=== PATIENT | male | born 1945 | race Caucasian/White ===

== ENCOUNTER 2021-09-10 14:57 | Outpatient (CLI) | payer MEDICARE, OTHER, SELFPAY ==
--- NOTE | 2021-09-10 14:59 | XR_ITS ---
WS: [id number] DEXA (DUAL ENERGY X-RAY ABSORPTIOMETRY) Bone mineral density was performed using a Bix machine. HISTORY: SCREENING FOR OSTEOPOROSIS, 76-year-old male. COMPARISON: None available. Lumbar spine BMD (L1-L4): 1.322 g/cm2 T score: 0.9 Z score: 0.9 Total hip BMD: Left: 0.902 g/cm2. T score: -1.4 Z score: -0.9 Right: 0.924 g/cm2. T score: -1.2 Z score: -0.7 10 year probability of a major osteoporotic fracture is 9%. XR/XR DEXA axial skeleton* [id number] IMPRESSION: OSTEOPENIA.
== END 2021-09-10 14:58 | disposition home or self-care (01) ==
PROVIDERS: Visit Provider Nurse Practitioner Family
DX: Z13.820 Encounter for screening for osteoporosis (principal); M85.80 Other specified disorders of bone density and structure, unspecified site
CPT/HCPCS: 77080

== ENCOUNTER 2021-10-09 07:43 | Outpatient (CLI) | payer MEDICARE, OTHER, SELFPAY ==
--- NOTE | 2021-10-09 08:00 | USCV_ITS ---
Eligio Ervin Age: 76 Gender: M : 1945 Exam Date: 10/09/2021 08:24 Ordering Phys: Sendy Guo Technologist: Adriana Coughlin [place] [facility] [place]: CHRONIC RENAL DISEASE Aortic Velocity @ SMA (cm/s) 80.3 RIGHT KIDNEY LEFT KIDNEY Velocity (cm/s) Velocity (cm/s) Sys/Mccarthy Sys/Mccarthy Resistive Index Resistive Index 55.6 / 10.5 0.81 Proximal Renal Artery 52.1 / 15.2 0.71 51.3 / 17.9 0.65 Mid Renal Artery 173.6 / 29.6 0.83 47.3 / 10.7 0.77 Distal Renal Artery 43.4 / 13.5 0.69 44.6 / 9.1 0.80 Hilar 42.7 / 10.7 0.75 35.4 / 10.7 0.70 Upper Pole 29.3 / 7.1 0.76 34.9 / 8.6 0.75 Mid Pole 30.2 / 9.0 0.70 20.2 / 5.6 0.72 Lower Pole 27.9 / 8.5 0.69 0.70 Renal Aortic Ratio 2.16 Accleration Index (cm/sec2) 340.00 Hilar 323.00 149.00 Upper Pole 200.00 242.00 Mid Pole 157.00 86.00 Lower Pole 149.00 121.3 Kidney Length (mm) 118.0 FINDINGS Renal artery to renal artery ratio of more than 3.0 on the left side Normal kidney dimensions Relatively high resistive indicis Normal kidney dimensions CONCLUSIONS 1. Normal kidney dimensions bilaterally 2. Elevated Doppler velocity in the mid renal artery on the left side, is suggestive of hemodynamically significant stenosis. 3. Elevated resistive indicis suggestive of medical renal disease 4. Large single renal cyst on the right kidney measuring 6.35 x 4.31 x 6.20 cm No similar previous studies are available for comparison Dr Nicolasa Dutta MD [facility] (Electronically Signed) Final Date: 10 October 2021 19:50 S
== END 2021-10-09 07:44 | disposition home or self-care (01) ==
LOC: RAD 07:46
PROVIDERS: PCP Nurse Practitioner Family; Visit Provider Nurse Practitioner Family
DX: N18.30 Chronic kidney disease, stage 3 unspecified (principal); N28.1 Cyst of kidney, acquired
CPT/HCPCS: 93975

== ENCOUNTER → 2022-05-20 13:52 | Outpatient (BNVA) | payer MEDICARE, OTHER, SELFPAY | PROVIDERS: PCP Nurse Practitioner Family; Visit Provider Internal Medicine Cardiovascular Disease | DX: I25.10 Atherosclerotic heart disease of native coronary artery without angina pectoris (principal); I10 Essential (primary) hypertension; I70.1 Atherosclerosis of renal artery; E11.9 Type 2 diabetes mellitus without complications; Z79.4 Long term (current) use of insulin | CPT/HCPCS: 99213; 99214 ==

== ENCOUNTER → 2022-11-25 12:53 | Outpatient (BNVA) | payer MEDICARE, OTHER, SELFPAY | PROVIDERS: PCP Nurse Practitioner Family; Visit Provider Internal Medicine | DX: I10 Essential (primary) hypertension (principal); I70.1 Atherosclerosis of renal artery; E11.9 Type 2 diabetes mellitus without complications; Z79.84 Long term (current) use of oral hypoglycemic drugs; I25.10 Atherosclerotic heart disease of native coronary artery without angina pectoris | CPT/HCPCS: 99214 ==

== ENCOUNTER → 2023-05-26 15:13 | Outpatient (BNVA) | payer MEDICARE, OTHER, SELFPAY | PROVIDERS: PCP Nurse Practitioner Family; Visit Provider Internal Medicine | DX: I10 Essential (primary) hypertension (principal); I70.1 Atherosclerosis of renal artery; E11.9 Type 2 diabetes mellitus without complications; I25.10 Atherosclerotic heart disease of native coronary artery without angina pectoris; Z79.4 Long term (current) use of insulin; N28.1 Cyst of kidney, acquired; Z79.84 Long term (current) use of oral hypoglycemic drugs | CPT/HCPCS: 99214 ==

== ENCOUNTER 2023-06-16 12:00 | Outpatient (CLI) | payer MEDICARE, OTHER, SELFPAY ==
--- NOTE | 2023-06-16 12:15 | USCV_ITS ---
Eligio Ervin Age: 77 Gender: M : 1945 Exam Date: 06/16/2023 12:27 Ordering Phys: Pako Farmer M.D ([email or web address]) Technologist: HELEN Exam Location: [facility] – [place] Indication: CHEST PAIN AND SHORTNESS OF BREATH BP: 136 / 76 HR: 60 Rhythm: Sinus Technical Quality: Adequate MEASUREMENTS (Male / Female) Normal Values 2D ECHO LVOT Diameter 2.0 cm LV Ejection Fraction MOD 2C 53.3 % LV Ejection Fraction 2C AL 52.7 % LA Diameter 3.8 cm LA Width 3.7 cm LA Height 4.8 cm RA Width 2.8 cm RA Height 4.8 cm Aorta at Sinotubular Diameter 2.5 cm M-MODE Aortic Annulus Diameter 3.5 cm LA Ao Ratio MM 1.0 MV E Point Septal Separation 0.7 cm DOPPLER AV Peak Velocity 218.0 cm/s LVOT Peak Velocity 96.0 cm/s AV Area Cont Eq vti 1.5 cm squared AV Area Cont Eq pk 1.4 cm squared MV Peak Velocity 99.0 cm/s MV Area PHT 2.9 cm squared Mitral E to A Ratio 0.7 MV E' Velocity 39.0 cm/s Mitral E to MV E' Ratio 8.7 Mitral E to LV E' Lateral Ratio 9.2 Mitral E to LV E' Septal Ratio 8.3 TR Peak Velocity 174.5 cm/s TR Peak Gradient 12.2 mmHg TR Mean Velocity 136.1 cm/s TR Mean Gradient 8.3 mmHg TR Velocity Time Integral 45.9 cm TV Peak E Velocity 51.0 cm/s Right Atrial Pressure 8.0 mmHg Pulmonary Artery Systolic Pressu 20.2 mmHg PV Peak Velocity 100.0 cm/s RV Acceleration Time 0.1 s RV Ejection Time 0.3 s RV AcT/ET 0.5 FINDINGS Left Ventricle Left ventricle is normal size. LV systolic function is normal with EF of 50-55%. No regional wall motion abnormalities are seen. Grade 1 diastolic dysfunction Right Ventricle Normal in size and function Right Atrium Normal in size Left Atrium Normal in size Mitral Valve Mild mitral annular calcification. Trace mitral regurgitation Aortic Valve Aortic valve is thickened. Mild aortic stenosis with aortic valve area of 1.4 cm2 and mean gradient across aortic valve of 11mmHg. Tricuspid Valve Mild tricuspid regurgitation. Pulmonary artery systolic pressure is normal. Pulmonic Valve Not well visualized Pericardium Normal Aorta Normal in size IVC Appears to be normal CONCLUSIONS LV systolic function is normal with EF 50-55% Grade 1 diastolic dysfunction Trace mitral regurgitation Mild aortic stenosis Mild tricuspid regurgitation No comparison studies are available. Pako Farmer MD (Electronically Signed) Final Date: 26 June 2023 13:03 S
== END 2023-06-16 12:01 | disposition home or self-care (01) ==
LOC: RAD 12:02
PROVIDERS: PCP Nurse Practitioner Family; Visit Provider Internal Medicine
DX: R06.02 Shortness of breath (principal); R07.9 Chest pain, unspecified
CPT/HCPCS: 93306

== ENCOUNTER 2025-06-12 15:26 | Outpatient (CLI) | payer MEDICARE, OTHER, SELFPAY ==
--- NOTE | 2025-06-12 15:48 | MR_ITS ---
WS: [id number] MRI HEAD WITH CONTRAST TECHNIQUE: Sagittal T1, T2 axial, T2 axial FLAIR, axial susceptibility weighted imaging, axial diffusion weighted images, and coronal T2 images were obtained. Pre and post-T1 axial and post T1 coronal images. ADC and FSPGR images. CLINICAL INFORMATION: TRAUMATIC INJURY OF HEAD, INITIAL ENCOUNTER FINDINGS: A few small foci of restricted diffusion involving the RIGHT temporoparietal junction, and LEFT anterolateral temporal lobe compatible with small foci of acute to early subacute ischemia. Consider embolic etiologies considering multiple vascular territories. Moderate small vessel changes. Moderate to advanced parenchymal volume loss. Multiple tiny chronic lacunar infarcts in the cerebellum bilaterally. Small vessel changes in the nayla. Normal vascular flow voids at the skull base. No extra-axial fluid collections. Tiny chronic lacunar infarcts in the RIGHT periventricular white matter. Paranasal sinuses and mastoid air cells are well aerated. Several scattered tiny foci of hemosiderin in the supratentorial white matter more prominent in the LEFT greater than RIGHT temporal lobes. No abnormal gadolinium enhancement. Normal dural venous sinuses. MR/MR head wo/w con [id number] IMPRESSION: 1. 2 or 3 small foci of restricted diffusion in the RIGHT parietal lobe and LE FT temporal lobe compatible with small acute to early subacute tiny infarcts. R ecommend correlation for embolic etiology considering multiple vascular territo soto. 2. Moderate small vessel changes with moderate to advanced parenchymal volume loss. 3. 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 Small vess el changes in the nayla. 4. Chronic lacunar infarcts in the RIGHT periventricular white matter. 5. Several tiny punctate foci of hemosiderin in the supratentorial white matte r more prominent in the LEFT greater than RIGHT temporal lobes. 6. No abnormal gadolinium enhancement.
[2025-06-12] MEDS: gadobenate dimeglumine 20 mL vial 18 ML IV (16:23)
== END 2025-06-12 15:27 | disposition home or self-care (01) ==
LOC: RAD 15:29
PROVIDERS: PCP Nurse Practitioner Family; Visit Provider Nurse Practitioner Family
DX: S09.90XA Unspecified injury of head, initial encounter (principal); X58.XXXA Exposure to other specified factors, initial encounter; Z86.73 Personal history of transient ischemic attack (TIA), and cerebral infarction without residual deficits
CPT/HCPCS: 70553; A9577

== ENCOUNTER 2025-06-13 12:35 | Emergency (ER) | payer MEDICARE, OTHER, SELFPAY ==
--- OUTSIDE RECORDS SUMMARY | 2025-06-11 18:00 | XMS_ITS | Encounter Summary ---
Author Organization [facility] Address [address] [place] [address] Care Team Providers Care Java Designer Name Role Phone Michaela Slater [facility] Primary Care Provider Reason for Visit * Reason Comments Double Vision Encounter Details Date Type Department Care Team (Late st Contact Info) Description 06/11/2025 6:00 PM CDT - 06/11/2025 9:29 PM CDT Emergency [facility] Emergency Medicine [address] [place] [phone] Amira Harris MD [address] [place] [phone] Luis Mckeon MD [address] [place] [address] [place] [address] Diplopia (Primary Dx) Discharge Disposition: Left Against Medical Advice Social History Tobacco Use Types Packs/Day Years Used Date Smoking Tobacco: Never Smokeless Tobacco: Never Tobacco Cessation:Counseling Given: Not Answered Alcohol Use Standard Drinks/Week Comments Not Currently 0 (1 standard drink = 0.6 oz pur e alcohol) Sex and Gender Information Value Date Recorded Sex Assigned at Not on file 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 Gender Identity Not on file Sexual Orientation Not on file documented as of this encounter Last Filed Vital Signs Vital Sign Reading Time Taken Comments Blood Pressure 209/95 06/11/2025 9:15 PM CDT Pulse 80 06/11/2025 8:45 PM CDT Temperature 36.6 C (97.8 F) 06/11/2025 5:56 PM CDT Respiratory Rate 17 06/11/2025 9:15 PM CDT Oxygen Saturation 98% 06/11/2025 9:15 PM CDT Inhaled Oxygen Concentration - - Weight 93.8 kg (206 lb 12.8 oz) 06/11/2025 5:56 PM CDT Height 15.2 cm (6 ) 06/11/2025 5:56 PM CDT Body Mass Index 4038.79 06/11/2025 5:56 PM CDT documented in this encounter Discharge Instructions * Discharge Instructions* Mary Alice Norman RN - 06/11/2025 9:22 PM CDT * Attachments The following attachments cannot be sent through Care Everywhere. * Diplopia (Macedonian) documented in this encounter Progress Notes * Dorinda Saavedra RN - 06/11/2025 7:01 PM CDT Virtual Neurology Team vRN Note: Patient Name: Eligio Ervin Patient Patient : 1945 Patient Age: 79 y.o. Patient gender: male Virtual Neurology Nurse notified by [facility] via eLert/phone at: 06-11-2025 18:58:50 ED arrival type: Private vehicle Reason for Teleneurology consult: BOATENG, hit head 3 days ago and double vision Routine consultation sent to virtual neurologist at: 06-11-2025 19:02:56 Dorinda Saavedra RN 06/11/2025 7:01 PM To reach [facility] Neurology please call [phone]. documented in this encounter Consult Notes * Davidson San MD - 06/11/2025 7:57 PM CDTAssociated Order(s): IP CONSULT TO [facility]ENEUROLOGY [facility] New Patient Consultation Note This is a telehealth visit and the patient is being seen on 06/11/2025 at [facility] via Telehealth services using bi-directional audio/video by Dr. Davidson San MD. A Telehealth consult was requested. Teleneurologist first contact with site: Video Video Start Time: 1947 Chief Complaint: Diplopia History of Present Illness: Eligio Ervin is a 79 y.o. male with a past medical history of hypertension, diabetes, who presented to the ER with a main complaint of double vision and headache. He says that he was in his normal state of health until 3 days ago when he hit his head with the garage door. He did not lose consciousness. He did not have any symptoms after this event. Yesterday, he started having double vision andmild headache. No nausea, no vomiting, no tingling or numbness or weakness. Reviewed history in chart review and found: No significant history noted. Reviewed history in care everywhere and found: No significant history noted. Medical, Surgical, Family, & Social History Past Medical History: Diagnosis Date Diabetes mellitus (CMS/HCC) Hypertension [place] spotted fever Past Surgical History: Procedure Laterality Date HX CATARACT REMOVAL No family history on file. Social History Socioeconomic History Marital status: Spouse name: Not on file Number of children: Not on file Years of education: Not on file Highest education level: Not on file Occupational History Not on file Tobacco Use Smoking status: Never Smokeless tobacco: Never Vaping Use Vaping status: Never Used Substance and Sexual Activity Alcohol use: Not Currently Drug use: Never Sexual activity: Not on file Other Topics Concern Not on file Social History Narrative Not on file Social Drivers of Health Food Insecurity: Not on file Transportation Needs: Not on file Feeling Safe: Not At Risk (06/11/2025) Feeling Safe Patient has indicated abuse: : No Housing Stability: Not on file Review of Systems: 10+ systems were reviewed. In addition to what is listed in the HPI, the following was positive: Asper HPI The following symptoms were denied during a ROS: Constitutional: No fevers or chills. Psychiatric: No depression/anxiety. Skin: No rashes. Respiratory: No shortness of breath. Cardiovascular: No chest pain. GI: No nausea/vomiting. : No incontinence. Endocrine: No polydipsia. Musculoskeletal: No muscle pain/joint pain. Neurologic: as per HPI and otherwise negative Hematologic: No excessive bruising. Allergies and Medications Allergies: No Known Allergies Prior to Admission Medications: (Not in a hospital admission) Active Hospital Medications: Current Facility-Administered Medications Medication Dose Route Frequency Provider Last Rate Last Admin sodium chloride flush injection 10 mL 10 mL IV every 12 hours (2 times daily) Day, Amira Pinedo MD sodium chloride flush injection 10 mL 10 mL IV see admin instructions Day, Amira Pinedo MD No current outpatient medications on file. Physical Examination: Vitals: BP (!) 186/91 Pulse 81 Temp 97.8 ??F (36.6 ??C) (Temporal) Resp 17 Ht (!) 6 (0.152m) Wt 93.8 kg (206 lb 12.8 oz) SpO2 95% BMI 4038.79 kg/m?? General: Alert, cooperative, no distress, appears stated age Head: Normocephalic, without obvious abnormalities, atraumatic, Eyes: Conjunctivae/corneas clear Throat: lips, mucosa, and tongue normal Lungs: non labored breathing Extremities: no edema, cyanosis, no deformities Psych: Judgement and insight is appropriate, see neuro exam for mental status exam Neurological Examination: 06/11/2025 Alert awake and oriented x 4 Attention concentration and memory are intact Speech is clear and fluent Diplopia No obvious facial weakness Moving all extremities well No dysmetria on gcldzd-[id number] Laboratory Data: Results for orders placed or performed during the hospital encounter of 06/11/25 (from the past 24 hours) CBC WITH DIFFERENTIAL Result Value Ref Range WBC 9.5 (H) 4.2 - 9.1 K/uL RBC 4.57 (L) 4.63 - 6.08 M/uL HEMOGLOBIN 13.9 13.7 - 17.5 g/dL HEMATOCRIT 39.6 (L) 40.1 - 51.0 % MCV 86.7 79.0 - 92.2 fL MCH 30.4 25.7 - 32.2 pg MCHC 35.1 32.3 - 36.5 g/dL RDW 13.5 11.0 - 14.5 % RDW-STDEV 41.8 36.9 - 56.9 fL PLATELETS 205 130 - 400 K/uL MPV 9.3 (L) 10.0 - 14.8 fL NEUTROPHILS 68 34 - 68 % LYMPHOCYTES 24 22 - 53 % MONOCYTES 5 5 - 12 % EOSINOPHILS 2 1 - 7 % BASOPHILS 0 0 - 1 % IMMATURE GRANULOCYTES 0 % NEUTROPHIL ABSOLUTE 6.51 (H) 1.78 - 5.38 K/uL LYMPHOCYTE ABSOLUTE 2.30 1.20 - 3.40 K/uL MONOCYTE ABSOLUTE 0.43 0.30 - 0.82 K/uL EOSINOPHIL ABSOLUTE 0.21 0.04 - 0.54 K/uL BASOPHILS ABSOLUTE 0.03 0.01 - 0.08 K/uL IMMATURE GRANULOCYTES ABSOLUTE 0.04 K/uL PROTIME-INR Result Value Ref Range PROTIME 13.3 12.1 - 14.3 Seconds INR 1.0 0.9 - 1.1 PTT Result Value Ref Range PTT 25.7 25.1 - 35.4 seconds COMPREHENSIVE METABOLIC PANEL Result Value Ref Range SODIUM 140 136 - 145 mmol/L POTASSIUM 4.4 3.5 - 5.1 mmol/L CHLORIDE 105 98 - 107 mmol/L CO2 23 22 - 29 mmol/L CALCIUM 8.7 (L) 8.8 - 10.2 mg/dL BUN 14 8 - 23 mg/dL CREATININE 0.98 0.67 - 1.17 mg/dL GLUCOSE 281 (H) 74 - 99 mg/dL TOTAL PROTEIN 6.5 (L) 6.6 - 8.7 g/dL ALBUMIN 3.4 (L) 3.5 - 5.2 g/dL BILIRUBIN TOTAL 1.2 0.0 - 1.2 mg/dL ALKALINE PHOSPHATASE 102 40 - 129 U/L AST 16 0 - 50 U/L ALT 7 0 - 50 U/L GFR >60 mL/min/1.73 sq meter ANION GAP 12 5 - 20 mmol/L BRAIN NATRIURETIC PEPTIDE, BNP OR PROBNP Result Value Ref Range PROBNP, N TERMINAL 664 (H) 0 - 450 pg/mL POC GLUCOSE Result Value Ref Range GLUCOSE POC 270 (H) 74 - 99 mg/dL SPECIMEN SOURCE, GLUCOSE POC Whole Blood Imaging: Reviewed in EPIC, Brain imaging personally reviewed; Other studies reviewed in EMR; CT Head : Shows no acute process CTA Head and Neck : MRI Brain : Impression: Eligio Ervin is a 79 y.o. male with a past medical history of hypertension, diabetes, who presented to the ER with a main complaint of double vision and headache. He says that he was in his normal state of health until 3 days ago when he hit his head with the garage door. He did not lose consciousness. He did not have any symptoms after this event. Yesterday, he started having double vision andmild headache. No nausea, no vomiting, no tingling or numbness or weakness. Differential diagnosis: Diabetic neuropathy of the eye muscles vs head trauma vs stroke Plan: 1. CTA head and neck 2. MRI brain with and without contrast 3. Ophthalmology consult either inpatient or outpatient. Ideally needs to be seen by neuro-ophthalmology. The Following orders were placed by me: None Above plan discussed with bedside provider Luis Mckeon MD Neurology Service Follow up Plan: Will follow this patient with you. A/V visit and further recommendations will be planned for tomorrow. Thank you for the opportunity to assist in the care of this patient. For questions/concerns, pleasecall [email or web address] at [phone]. Author: Davidson San MD as of: 06/11/2025 Evaluation and Management I spent minutes providing care for this patient. This includes chart review preparing for visit, virtual interview & virtual examination, as needed review and interpretation of lab, as needed independent image review and interpretation of scans, formulation of neurologic diagnosis and plan, review and placement of EMR orders, , discussion with attending, coordination with bedside team, communi cation with available significant others if available, documentation in medical record, coordination with [facility] Triage team, and any care coordination that I could assist with. (Dictated using voice to text software and can result in typos). This note was generated with [employer] voice recognition software and may contain endo tech errors. documented in this encounter ED Notes * Mary Alice Norman RN - 06/11/2025 9:[address] Mckeon aware of high blood pressure during stay. No new orders. Pt instructed to take bloodpressure medication when returning home. Pt hasn't taking any medications today. Pt choosing to leave AMA. Pt will call his pcp tomorrow letting her know what he was seen for and that he is needing an MRI. Pt a/ox3. Respirations even and unlabored. Pt denies pain. Continues to have double vision. Granddaughter in room, will be driving patient home. * Mary Alice Norman RN - 06/11/2025 8:57 PM CDT Pt continues to have double vision. Denies pain. Family at bedside. * Mary Alice Norman RN - 06/11/2025 7:51 PM CDT Tele neurology speaking with patient * Mary Alice Norman RN - 06/11/2025 7:30 PM CDT Pt resting in bed. Computer at bedside for tele neurology * Mary Alice Norman RN - 06/11/2025 6:07 PM CDT Pt to ct via w/c. * Mary Alice Norman RN - 06/11/2025 6:03 PM CDT Pt arrived via pov. Drove self from [place]. C/o double vision, starting yesterday. Pt struck head3 days ago on garage door. Denies loc with injury. Pt a/ox.3. Pt reports headache x 2 days, after striking his head on the garage door. Ambulatory to room with steady gait. Denies pain. Pt unable to see vision chart during assessment. * Luis Mckeon MD - 06/11/2025 5:51 PM CDT HISTORY OF PRESENT ILLNESS History of Present Illness This is a patient with a history of diabetes and [place] spotted fever presenting with head trauma. The patient experienced a minor head injury 3 to 4 days ago when he accidentally hit his forehead on the garage door. He did not lose consciousness at the time of the incident. He reports no history of stroke or brain bleeds and is not currently on any blood thinners. The patient began experiencingdouble vision yesterday, with no significant change in the quality of his vision. He reports that his close-up vision is better than his distance vision, and he can see light in both eyes. He believes his left eye is stronger than his right. Additionally, he reports a headache and loss of balance, which he attributes to his current eye condition. He has not taken his blood pressure or blood sugar medication today. The patient has diabetes and [place] spotted fever, which is still ongoing. He is not on anymedication currently for the spotted fever. When he first contracted the illness, he was prescribedantibiotics for 20 days, which resolved the symptoms. Prior to treatment, his legs were almost solid red with little bumps. The patient has been experiencing tingling in his thumb for a couple of weeks, which he does not believe is related to the current issue. PAST MEDICAL HISTORY REVIEWED MEDICAL: Patient has a past medical history of Diabetes mellitus ([facility]), Hypertension, and [place] fever. SURGICAL: Patient has a past surgical history that includes cataract removal. ALLERGIES Patient has no known allergies. PHYSICAL EXAM INITIAL VS BP: (!) 196/98 (06/11/251755), Heart Rate: 84 bpm (06/11/251755), Resp: 17 (06/11/251755), Pulse: 84 (06/11/25 1845), Temp: 97.8 ??F (36.6 ??C) (06/11/251755), Temp src: Temporal (06/11/251755),SpO2: 97 % (06/11/251755), Height: (!) 6 (15.2 cm) (06/11/251755), Weight: 93.8 kg (206 lb 12.8 oz) (06/11/251755), BMI (Calculated): (!) 4059.9 (06/11/25 1756) No LMP for male patient. Blood pressure (!) 185/81, pulse 80, temperature 97.8 ??F (36.6 ??C), temperature source Temporal, resp. rate 20, height (!) 6 (0.152 m), weight 93.8 kg (206 lb 12.8 oz), SpO2 94%. Physical Exam Vitals and nursing note reviewed. Constitutional: General: He is not in acute distress. Appearance: Normal appearance. He is normal weight. He is not ill-appearing. HENT: Head: Normocephalic. Mouth/Throat: Mouth: Mucous membranes are moist. Eyes: General: Visual field deficit present. Extraocular Movements: Extraocular movements intact. Conjunctiva/sclera: Conjunctivae normal. Pupils: Pupils are equal, round, and reactive to light. Cardiovascular: Rate and Rhythm: Normal rate and regular rhythm. Pulses: Normal pulses. Pulmonary: Effort: Pulmonary effort is normal. No respiratory distress. Musculoskeletal: Cervical back: Normal range of motion and neck supple. Lymphadenopathy: Cervical: No cervical adenopathy. Skin: General: Skin is warm and dry. Capillary Refill: Capillary refill takes less than 2 seconds. Neurological: General: No focal deficit present. Mental Status: He is alert and oriented to person, place, and time. Mental status is at baseline. Cranial Nerves: No cranial nerve deficit, dysarthria or facial asymmetry. Sensory: Sensation is intact. Motor: No abnormal muscle tone or pronator drift. Comments: Mild dysmetria present bilaterally R>L Psychiatric: Mood and Affect: Mood normal. Behavior: Behavior normal. Physical Exam Head: No swelling noted on the forehead. Eyes: Patient able to see light in both eyes. Extraocular movements intact. Right eye shows deviation, left eye appears normal. Cardiovascular: Blood pressure is elevated. Neurological: Patient exhibits difficulty with gwfyoj-su-ytpx test. Reports tingling in thumb. No weakness or numbness noted. DIAGNOSTICS LAB: CBC WITH DIFFERENTIAL - Abnormal Result Value WBC 9.5 (*) RBC 4.57 (*) HEMOGLOBIN 13.9 HEMATOCRIT 39.6 (*) MCV 86.7 MCH 30.4 MCHC 35.1 RDW 13.5 RDW-STDEV 41.8 PLATELETS 205 MPV 9.3 (*) NEUTROPHILS 68 LYMPHOCYTES 24 MONOCYTES 5 EOSINOPHILS 2 BASOPHILS 0 IMMATURE GRANULOCYTES 0 NEUTROPHIL ABSOLUTE 6.51 (*) LYMPHOCYTE ABSOLUTE 2.30 MONOCYTE ABSOLUTE 0.43 EOSINOPHIL ABSOLUTE 0.21 BASOPHILS ABSOLUTE 0.03 IMMATURE GRANULOCYTES ABSOLUTE 0.04 COMPREHENSIVE METABOLIC PANEL - Abnormal SODIUM 140 POTASSIUM 4.4 CHLORIDE 105 CO2 23 CALCIUM 8.7 (*) BUN 14 CREATININE 0.98 GLUCOSE 281 (*) TOTAL PROTEIN 6.5 (*) ALBUMIN 3.4 (*) BILIRUBIN TOTAL 1.2 ALKALINE PHOSPHATASE 102 AST 16 ALT 7 GFR >60 ANION GAP 12 BRAIN NATRIURETIC PEPTIDE, BNP OR PROBNP - Abnormal PROBNP, N TERMINAL 664 (*) POC GLUCOSE - Abnormal GLUCOSE POC 270 (*) SPECIMEN SOURCE, GLUCOSE POC Whole Blood PROTIME-INR - Normal PROTIME 13.3 INR 1.0 PTT - Normal PTT 25.7 RADIOLOGY: CTA HEAD AND NECK W AND/OR WO CONTRAST Radiologist Impression IMPRESSION: Please see below. Exam: CTA HEAD AND NECK W AND/OR WO CONTRAST Date/Time of Exam: 06/11/2025 8:26 PM Reason For Exam: Ophthalmoplegia, Stroke/TIA, determine embolic source. Diagnosis: See Reason for Exam. Technique: CTA of the head and neck was performed prior to and following the administration of intravenous contrast. Post-processing was performed, including sagittal and coronal reformations and 3-D reconstruction. Contrast: IOPAMIDOL 61 % INTRAVENOUS SOLUTION (SINGLE USE VIAL) Given:100 mL Findings: No enlarged cervical lymph nodes are identified. No suspicious thyroid nodules. Visualized lung apices are clear. Paranasal sinuses and mastoid air cells are clear. There is no evidence of acute fracture or dislocation. There is moderate degenerative change throughout the cervical spine with disc height loss and osteophytes. No periapical lucencies are identified. No fluid collections or hematomas. Vertebral arteries are patent and codominant. The basilar artery is patent. There is mild stenosis of the left posterior cerebral artery.. Bilateral internal carotid arteries are patent. There are vascular calcifications. Bilateral anterior cerebral arteries and anterior communicating arteries are patent. Bilateral middle cerebral arteries are patent. IMPRESSION: 1. No evidence of high-grade stenosis, aneurysm or dissection in the high right neck. CT HEAD WO CONTRAST Radiologist Impression IMPRESSION: Please see below. Exam: CT HEAD WO CONTRAST Date/Time of Exam: 06/11/2025 6:16 PM Reason For Exam: Head trauma, moderate-severe, diplopia. Diagnosis: See Reason for Exam. Technique: CT of the head was performed without the administration of intravenous contrast. Comparison: None Findings: Mild atrophy. No acute cortical infarct, mass or hemorrhage. Intact calvarium and no fluid in the middle ear cavities or mastoid air cells. Septum deviates to the right. The visualized sinuses are clear. Bilateral lens replacement postoperative changes. IMPRESSION: 1. No acute intracranial abnormality. EKG: PROCEDURES Procedures MEDICAL DECISION MAKING AND PLAN OF CARE Medical Decision Making Initial Assessment: Reported hitting forehead on garage door 3-4 days ago. Onset of double vision yesterday. No historyof stroke or brain bleeds. Not on blood thinners. Experiencing headaches and loss of balance since incident. Differential Diagnosis: - Head trauma: Recent forehead injury. Double vision, headaches, loss of balance. CT scan to check for bleeding or abnormalities. Blood work to assess health status. - Diabetes mellitus: Slightly elevated blood sugar levels. Did not take blood sugar medication today. Resume regular medication regimen. Monitor blood sugar levels closely. ED Course: - CT scan performed - Blood work obtained - Tele neurology specialist evaluation Final Assessment: CT scan and blood work conducted to evaluate head trauma. Blood sugar levels slightly elevated, advised to resume medication and monitor levels. Clinical Impression: - Head trauma - Diabetes mellitus Care of the patient has been transferred to the night team at 7 PM. Deangelo Mckeon MD: I assumed care of this patient at shift change. CT angiogram of the head neck was pending. That hasbeen completed and read by the radiologist as normal. Dr. San, neurologist evaluated the patientand he did discuss this case with me. He recommends an MRI with and without contrast. I did place acall to get the patient transferred to [facility] and while that was in process the patient decided that he does not want to stay. He wants to follow-up with his primary care provider and havethem order an outpatient MRI. Patient did sign out AMA. I did encourage him to contact his primary care provider in the morning and have them order the MRI to be done as soon as possible. Amount and/or Complexity of Data Reviewed Labs: ordered. Radiology: ordered. Risk Prescription drug management. MDM NIH Stroke Scale/Score (NIHSS): 1. Level of consciousness: 0 - Alert, keenly responsive 1b. LOC questions: Age and month: 0 - answers both correctly 1c. LOC commands: Blink eyes and squeeze hands: 0 - performs both correctly 2. Best gaze: 1 - Partial gaze palsy, gaze is abnormal in one or both eyes, but forced deviation ortotal gaze paresis is not present. 3. Visual: 0 - no visual loss 4. Facial palsy: 0 - Normal symmetrical movements 5a. Motor arm, left : 0 - No drift, limb holds 90 (or 45) degrees for full 10 seconds 5b. Motor arm, right : 0 - No drift, limb holds 90 (or 45) degrees for full 10 seconds 6a. Motor leg, left : 0 - No drift, leg holds 30 degree position for full 5 seconds 6b. Motor leg, right: 0 - No drift, leg holds 30 degree position for full 5 seconds 7. Limb ataxia : 0 - absent 8. Sensory: 0 - Normal, no sensory loss 9. Best language: 0 - no aphasia 10. Dysarthria: 0 - Normal 11. Extinction and inattention (formerly neglect): 0 - No abnormality NIH score is: 1 Medications Administered During the ED Stay from 06/11/20251751 to 06/11/20252124 Date/Time Order Dose Route Action 06/11/20252026 CDT iopamidoL (ISOVUE-300) 61% injection (single-use vial) 100 mL 100 mL IV Contrast Given . LAST VS BP: (!) 185/81 (06/11/252044), Heart Rate: 74 bpm (06/11/252044), Resp: 20 (06/11/252044), Pulse: 80 (06/11/252044), Temp: 97.8 ??F (36.6 ??C) (06/11/251755), Temp src: Temporal (06/11/251755),SpO2: 94 % (06/11/252044) CLINICAL IMPRESSION Diagnosis Diagnosis Comment Added By Time Added Diplopia [H53.2] Luis Mckeon MD 06/11/2025 9:21 PM DISPOSITION, EDUCATION AND MEDICATION RECONCILIATION Medications reconciled. See after visit summary for patient education on discharged patients. ED Disposition ED Disposition AMA Condition -- User Luis Mckeon MD Date/Time TueJun 11, 2025 9:21 PM Comment -- documented in this encounter Plan of Treatment Not on file documented as of this encounter Procedures Procedure Name Priority Date/Time Associated Diagnosis Comments CTA HEAD AND NECK W AND/OR WO CONTRAST Stat 06/11/2025 8:[address] HEAD WO CONTRAST Stat 06/11/2025 6 :16 PM CDT POC GLUCOSE Stat 06/11/2025 6:01 PM CDT CBC WITH DIFFERENTIAL Stat 06/11/2025 6:01 PM CDT PTT Stat 06/11/2025 6:01 PM CDT PROTIME-INR Stat 06/11/2025 6:01 PM CDT BRAIN NATRIURETIC PEPTIDE, BNP OR PROBNP Stat 06/11/2025 6:01 PM CDT COMPREHENSIVE METABOLIC PANEL Stat 06/11/2025 6:01 PM CDT documented in this encounter Results * CTA HEAD AND NECK W AND/OR WO CONTRAST (06/11/2025 8:26 PM CDT) Anatomical Region Laterality Modality Head Computed Tomogra phy 06/11/2025 7:56 PM CDT Impressions 06/11/2025 8:52 PM CDT IMPRESSION: Please see below. Exam: CTA HEAD AND NECK W AND/OR WO CONTRAST Date/Time of Exam: 06/11/2025 8:26 PM Reason For Exam: Ophthalmoplegia, Stroke/TIA, determine embolic source. Diagnosis: See Reason for Exam. Technique: CTA of the head and neck was performed prior to and following the administration of intravenous contrast. Post-processing was performed, including sagittal and coronal reformations and 3-D reconstruction. Contrast: IOPAMIDOL 61 % INTRAVENOUS SOLUTION (SINGLE USE VIAL) Given:100 mL Findings: No enlarged cervical lymph nodes are identified. No suspicious thyroid nodules. Visualized lung apices are clear. Paranasal sinuses and mastoid air cells are clear. There is no evidence of acute fracture or dislocation. There is moderate degenerative change throughout the cervical spine with disc height loss and osteophytes. No periapical lucencies are identified. No fluid collections or hematomas. Vertebral arteries are patent and codominant. The basilar artery is patent. There is mild stenosis of the left posterior cerebral artery.. Bilateral internal carotid arteries are patent. There are vascular calcifications. Bilateral anterior cerebral arteries and anterior communicating arteries are patent. Bilateral middle cerebral arteries are patent. IMPRESSION: 1. No evidence of high-grade stenosis, aneurysm or dissection in the high right neck. Narrative Procedure Note Brian Ochoa MD - 06/11/2025 IMPRESSION: Please see below. Exam: CTA HEAD AND NECK W AND/OR WO CONTRAST Date/Time of Exam: 06/11/2025 8:26 PM Reason For Exam: Ophthalmoplegia, Stroke/TIA, determine embolic source. Diagnosis: See Reason for Exam. Technique: CTA of the head and neck was performed prior to and following the administration of intravenous contrast. Post-processing was performed, including sagittal and coronal reformations and 3-D reconstruction. Contrast: IOPAMIDOL 61 % INTRAVENOUS SOLUTION (SINGLE USE VIAL) Given:100 mL Findings: No enlarged cervical lymph nodes are identified. No suspicious thyroid nodules. Visualized lung apices are clear. Paranasal sinuses and mastoid air cells are clear. There is no evidence of acute fracture or dislocation. There is moderate degenerative change throughout the cervical spine with disc height loss and osteophytes. No periapical lucencies are identified. No fluid collections or hematomas. Vertebral arteries are patent and codominant. The basilar artery is patent. There is mild stenosis of the left posterior cerebral artery.. Bilateral internal carotid arteries are patent. There are vascular calcifications. Bilateral anterior cerebral arteries and anterior communicating arteries are patent. Bilateral middle cerebral arteries are patent. IMPRESSION: 1. No evidence of high-grade stenosis, aneurysm or dissection in the high right neck. Amira Harris MD CT ORDERABLES Final Result * CT HEAD WO CONTRAST (06/11/2025 6:16 PM CDT) Anatomical Region Laterality Modality Head Computed Tomogra phy 06/11/2025 6:01 PM CDT Impressions 06/11/2025 6:48 PM CDT IMPRESSION: Please see below. Exam: CT HEAD WO CONTRAST Date/Time of Exam: 06/11/2025 6:16 PM Reason For Exam: Head trauma, moderate-severe, diplopia. Diagnosis: See Reason for Exam. Technique: CT of the head was performed without the administration of intravenous contrast. Comparison: None Findings: Mild atrophy. No acute cortical infarct, mass or hemorrhage. Intact calvarium and no fluid in the middle ear cavities or mastoid air cells. Septum deviates to the right. The visualized sinuses are clear. Bilateral lens replacement postoperative changes. IMPRESSION: 1. No acute intracranial abnormality. Narrative Procedure Note Eligio Padilla MD - 06/11/2025 IMPRESSION: Please see below. Exam: CT HEAD WO CONTRAST Date/Time of Exam: 06/11/2025 6:16 PM Reason For Exam: Head trauma, moderate-severe, diplopia. Diagnosis: See Reason for Exam. Technique: CT of the head was performed without the administration of intravenous contrast. Comparison: None Findings: Mild atrophy. No acute cortical infarct, mass or hemorrhage. Intact calvarium and no fluid in the middle ear cavities or mastoid air cells. Septum deviates to the right. The visualized sinuses are clear. Bilateral lens replacement postoperative changes. IMPRESSION: 1. No acute intracranial abnormality. us Amira Harris MD CT ORDERABLES Final Result * (ABNORMAL) POC GLUCOSE (06/11/2025 6:01 PM CDT) GLUCOSE POC 270(H) 74 - 99 mg/dL 06/11/2025 6:01 PM CDT [facility] SPECIMEN SOURCE, GLUCOSE POC Whole Blood 06/11/2025 6:01 PM CDT [facility] Blood, whole 06/11/2025 6:01 PM CDT 06/11/2025 6:08 PM CDT us Amira Harris MD POINT OF CARE TESTING Final Res ult Performing Organization Address City/[facility]/ZIP Co de Phone Number [facility] CLIA # [id number] [address] [place] [phone] * (ABNORMAL) BRAIN NATRIURETIC PEPTIDE, BNP OR PROBNP (06/11/2025 6:01 PM CDT) PROBNP, N TERMINAL 664(H) 0 - 450 pg/mL 06/11/2025 6:24 PM CDT [facility] Comment: INTERPRETIVE COMMENT based on diagnosis: Diagnostic NT pro-BNP cutoffs for Heart Failure in the absence of renal failure is suggested for the following ranges <75 years: <125 pg/mL >=75 years: <450 pg/mL Exclusionary rule out cut-point for Acute Decompensated Heart Failure(ADHF) All ages: <300 pg/mL Diagnostic NT pro-BNP cutoffs for Acute Decompensated Heart Failure(ADHF) in the absence of renal failure is suggested for the following ages <50 years: > 450 pg/mL 50-75 years: > 900 pg/mL >75 years: >1800 pg/mL Blood BLOOD SPECIMEN / Unknown Collection / Unknown 06/11/2025 6:01 PM CDT 06/11/2025 6:06 PM CDT us Amira Harris MD CHEMISTRY ORDERABLES Final Resu lt Performing Organization Address [facility]/ZIP Co de Phone Number [facility] CLIA # [id number] [address] [place] [phone] * (ABNORMAL) COMPREHENSIVE METABOLIC PANEL (06/11/2025 6:01 PM CDT) SODIUM 140 136 - 145 mmol/L 06/11/2025 6:24 PM CDT [facility] POTASSIUM 4.4 3.5 - 5.1 mmol/L 06/11/2025 6:24 PM CDT [facility] CHLORIDE 105 98 - 107 mmol/L 06/11/2025 6:24 PM CDT [facility] CO2 23 22 - 29 mmol/L 06/11/2025 6:24 PM [facility] CALCIUM 8.7(L) 8.8 - 10.2 mg/dL 06/11/2025 6:24 PM [facility] BUN 14 8 - 23 mg/dL 06/11/2025 6:24 PM [facility] CREATININE 0.98 0.67 - 1.17 mg/dL 06/11/2025 6:24 PM [facility] Comment:The GFR result is no t clinically significant on patients <18 or >70 years of age. GLUCOSE 281(H) 74 - 99 mg/dL 06/11/2025 6:24 PM [facility] TOTAL PROTEIN 6.5(L) 6.6 - 8.7 g/dL 06/11/2025 6:24 PM [facility] ALBUMIN 3.4(L) 3.5 - 5.2 g/dL 06/11/2025 6:24 PM [facility] BILIRUBIN TOTAL 1.2 0.0 - 1.2 mg/dL 06/11/2025 6:24 PM [facility] ALKALINE PHOSPHATASE 102 40 - 129 U/L 06/11/2025 6:24 PM [facility] AST 16 0 - 50 U/L 06/11/2025 6:24 PM [facility] ALT 7 0 - 50 U/L 06/11/2025 6:24 PM [facility] GFR >60 mL/min/1.7 3 sq meter 06/11/2025 6:24 PM [facility] Comment:eGFR calculated with 2020 CKD-EPI equation. Vegetarian diet, extremely high or low muscle mass, and may affect results. Cystatin C with Glomerular Filtration Rate is a suitable alternative for these patients. ANION GAP 12 5 - 20 mmol/L 06/11/2025 6:24 PM [facility] Blood BLOOD SPECIMEN / Unknown Collection / Unknown 06/11/2025 6:01 PM CDT 06/11/2025 6:06 PM CDT us Amira Harris MD CHEMISTRY ORDERABLES Final Resu lt [facility] CLIA # [id number] [address] [place] [phone] * PTT (06/11/2025 6:01 PM CDT) PTT 25.7 25.1 - 35.4 seconds 06/11/2025 6:18 PM CDT [facility] Blood BLOOD SPECIMEN / Unknown Collection / Unknown 06/11/2025 6:01 PM CDT 06/11/2025 6:06 PM CDT us Amira Harris MD HEMATOLOGY ORDERABLES Final Res ult Performing Organization Address [facility]/ZIP Co de Phone Number [facility] CLIA # [id number] [address] [place] [phone] * PROTIME-INR (06/11/2025 6:01 PM CDT) PROTIME 13.3 12.1 - 14.3 Seconds 06/11/2025 6:18 PM CDT [facility] INR 1.0 0.9 - 1.1 06/11/2025 6:18 PM CDT [facility] Blood BLOOD SPECIMEN / Unknown Collection / Unknown 06/11/2025 6:01 PM CDT 06/11/2025 6:06 PM CDT us Amira Harris MD HEMATOLOGY ORDERABLES Final Res ult Performing Organization Address City/[facility]/ZIP Co de Phone Number [facility] CLIA # [id number] [address] [place] [phone] * (ABNORMAL) CBC WITH DIFFERENTIAL (06/11/2025 6:01 PM CDT) WBC 9.5(H) 4.2 - 9.1 K/uL 06/11/2025 6:10 PM CDT [facility] RBC 4.57(L) 4.63 - 6.08 M/uL 06/11/2025 6:10 PM [facility] HEMOGLOBIN 13.9 13.7 - 17.5 g/dL 06/11/2025 6:10 PM [facility] HEMATOCRIT 39.6(L) 40.1 - 51.0 % 06/11/2025 6:10 PM [facility] MCV 86.7 79.0 - 92.2 fL 06/11/2025 6:10 PM [facility] MCH 30.4 25.7 - 32.2 pg 06/11/2025 6:10 PM [facility] MCHC 35.1 32.3 - 36.5 g/dL 06/11/2025 6:10 PM [facility] RDW 13.5 11.0 - 14.5 % 06/11/2025 6:10 PM [facility] RDW-STDEV 41.8 36.9 - 56.9 fL 06/11/2025 6:10 PM [facility] PLATELETS 205 130 - 400 K/uL 06/11/2025 6:10 PM [facility] MPV 9.3(L) 10.0 - 14.8 fL 06/11/2025 6:10 PM [facility] NEUTROPHILS 68 34 - 68 % 06/11/2025 6:10 PM [facility] LYMPHOCYTES 24 22 - 53 % 06/11/2025 6:10 PM [facility] MONOCYTES 5 5 - 12 % 06/11/2025 6:10 PM [facility] EOSINOPHILS 2 1 - 7 % 06/11/2025 6:10 PM [facility] BASOPHILS 0 0 - 1 % 06/11/2025 6:10 PM [facility] IMMATURE GRANULOCYTES 0 % 06/11/2025 6:10 PM [facility] NEUTROPHIL ABSOLUTE 6.51(H) 1.78 - 5.38 K/uL 06/11/2025 6:10 PM [facility] LYMPHOCYTE ABSOLUTE 2.30 1.20 - 3.40 K/uL 06/11/2025 6:10 PM CDT [facility] MONOCYTE ABSOLUTE 0.43 0.30 - 0.82 K/uL 06/11/2025 6:10 PM CDT [facility] EOSINOPHIL ABSOLUTE 0.21 0.04 - 0.54 K/uL 06/11/2025 6:10 PM CDT [facility] BASOPHILS ABSOLUTE 0.03 0.01 - 0.08 K/uL 06/11/2025 6:10 PM CDT [facility] IMMATURE GRANULOCYTES ABSOLUTE 0.04 K/uL 06/11/2025 6:10 PM CDT [facility] Blood BLOOD SPECIMEN / Unknown Collection / Unknown 06/11/2025 6:01 PM CDT 06/11/2025 6:06 PM CDT us Amira Harris MD HEMATOLOGY ORDERABLES Final Res ult [id number] [address] [place] [address] [phone] documented in this encounter Visit Diagnoses Diagnosis Diplopia- Primary documented in this encounter Administered Medications Inactive Administered Medications - up to 3 most recent administrations Medication Order MAR Action Action Date Dose Rate Site iopamidoL (ISOVUE-300) 61% injection (single-use vial) 100 mL 100 mL, IV, INTRA-PROCEDURE ONCE, 1 dose, Starting on Tue06/11/25 at 2025, Until Tue06/11/25 at 2026, Routine Contrast Given 06/11/2025 8:27 PM CDT 100 mL sodium chloride flush injection 10 mL 10 mL, IV, EVERY 12 HOURS (BlD), First dose on Tue06/11/25 at 2100, Until Discontinued, Routine sodium chloride flush injection 10 mL 10 mL, IV, SEE ADMIN INSTRUCTIONS, Starting on Tue06/11/25 at 1801, Until Tue06/11/25 at 2336, Routine documented in this encounter Active and Recently Administered Medications Times are shown in CDT. Scheduled Medication Order 06/09/2025 06/10/2025 06/11/2025 iopamidoL (ISOVUE-300) 61% injection (single-use vial) 100 mL (COMPLETED) 100 mL, IV, INTRA-PROCEDURE ONCE, 1 dose, Starting on Tue06/11/25 at 2025, Until Tue06/11/25 at 2026, Routine 2026 (Contrast Given - Provider: Cely Cosme, RT) sodium chloride flush injection 10 mL 10 mL, IV, EVERY 12 HOURS (BlD), First dose on Tue06/11/25 at 2100, Until Discontinued, Routine 2099 (Due) sodium chloride flush injection 10 mL 10 mL, IV, SEE ADMIN INSTRUCTIONS, Starting on Tue06/11/25 at 1801, Until Tue06/11/25 at 2336, Routine documented in this encounter Care Teams Java Designer Relationship Specialty Start Date End Date Michaela Slater FNP [address] [place] [id number] PCP - General NURSE PRACTITIONER 12/11/12 documented as of this encounter
--- OUTSIDE RECORDS SUMMARY | 2025-06-13 12:08 | XMS_ITS | Continuity of Care Document ---
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 It does not include entries that were removed or entered in error. 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 Medication Details Route Status Patient Instructions Prescription Expires Prescription Number Last Dispense Date Ordering Provider Order Date Order Qty Source AMLODIPINE BESYLATE (AMLODIPINE BESYLATE), 10 MG, TABLET, ORAL, [employer], 1000 ea. BOTTLE Active [id number] 4 2023 90 Pharmac y Data Transac tion Service Facilit y ARIPIPRAZOL E (aripiprazo le), 2 MG, TABLET, ORAL, [facility], 30 ea. BOTTLE Active [id number] 4 2023 14 Pharmac y Data Transac tion Service Facilit y ATENOLOL (ATENOLOL), 50 MG, TABLET, ORAL, [employer] 1000 ea. BOTTLE Active [id number] 4 2023 90 Pharmac y Data Transac tion Service Facilit y JARDIANCE (EMPAGLIFLO ZIN), 10 MG, TABLET, ORAL, [employer]., 90 ea. BOTTLE Active [id number] 4 2023 90 Pharmac y Data Transac tion Service Facilit y LANTUS SOLOSTAR (INSULIN GLARGINE, M.REC.ANLOG ), 100/ML (3), INSULN PEN, SUB-Q, SANOFI-AVEN TIS, 3 ml SYRINGE Active [id number] 4 2023 60 Pharmac y Data Transac tion Service Facilit y MELOXICAM (meloxicam) , 15 MG, TABLET, ORAL, [employer] 1000 ea. BOTTLE Active [id number] 4 2023 90 Pharmac y Data Transac tion Service Facilit y METHOCARBAM OL (methocarba mol), 750 MG, TABLET, ORAL, GRANULES PHARMA, 500 ea. BOTTLE Active [id number] 4 2023 90 Pharmac y Data Transac tion Service Facilit y NOVOFINE 32 (pen needle, diabetic), 32 GX 1/4 , DIS NEEDLE, MISCELL, CATHY NORDISK, [address] C[address]le d [id number] : 2023 0 Pharmac y Data Transac tion Service Facilit y NOVOFINE 32 (pen needle, diabetic), 32 GX 1/4 , DIS NEEDLE, MISCELL, CATHY NORDISK, 100 ea. BOX Cancele d [id number] 4 [id number] : 2023 0 Pharmac y Data Transac tion Service Facilit y SURE COMFORT PEN NEEDLE (pen needle, diabetic), 32GX , DIS NEEDLE, MISCELL, [facility], 100 ea. BOX Active [id number] 03/27/20 2 4 2023 100 Pharmac y Data Transac tion Service Facilit y SYNTHROID (LEVOTHYROX INE SODIUM), 125MCG, TABLET, ORAL, [facility] 1000 ea. BOTTLE Active [id number] 4 2023 90 Pharmac y Data Transac tion Service Facilit y VITAMIN D2 (ergocalcif zeus (vitamin D2)), 1250 MCG, CAPSULE, ORAL, [employer], 100 ea. BOTTLE Active [id number] 4 2023 6 Pharmac y Data Transac tion Service Facilit y Immunizations Combined list of available immunizations from the Department of Defense and Veterans Affairs facilities. Immunization Series Date Given Administered By Site Reaction Lot Number CVX Code Drug Atomic Welder Status Comments Source INFLUENZA, UNSPECIFIED FORMULATION [address] [facility] PNEUMOCOCCAL, UNSPECIFIED FORMULATION 2002 109 complet ed [facility] INFLUENZA, UNSPECIFIED FORMULATION 2002 88 complet ed [facility] TD(ADULT) UNSPECIFIED FORMULATION 2002 139 complet [facility] INFLUENZA (HISTORICAL) [address] [facility] TD(ADULT) UNSPECIFIED FORMULATION [address] [facility] Encounters Combined list of: 1) Encounters from Department of Veterans Affairs facilities going backup to the last 18 months, not all [place] inpatient encounters are included; 2) Encounters from the Department of [facility] facilities going backup to 280 months. Location Location Details Encounter Type Encounter Number Reason For Visit Attending Provider ADM Date DC Date Status Disposition Source [facility] Outpatient Encounter [id number] 01/05 [facility] Outpatient Encounter [id number] 02/02 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 Outpatient Encounter [id number] 03/16 [facility] Outpatient Encounter [id number] 03/19 [facility] Outpatient Encounter [id number] 03/21 [facility] Outpatient Encounter [id number] 04/17 [facility] Outpatient Encounter [id number] 04/18 [facility] Social History Combined list of available smoking, tobacco, and other social history from Department of Defense and [facility] Affairs facilities. 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 [employer]
[2025-06-13 12:40] VITALS: BP 170/79; PULSE 82; RESP 17; TEMP 36.5; O2SAT 96; BMI 27.9
--- OUTSIDE RECORDS SUMMARY | 2025-06-13 12:41 | XMS_ITS | Clinical Summary ---
Author Organization [facility] Address [address] [facility] Attn: [place] [address] Care Team Providers Care Broommaker Name Role Phone Michaela Slater TIFFANY Primary Care Provider Allergies No known active allergies Medications No known medications Encounters Date Type Department Care Team Description 06/11/2025 6:00 PM CDT - 06/11/2025 9:29 PM CDT Emergency [facility] Emergency Medicine [address] [place] [id number] Amira Harris MD Sindlinger, Timothy S, MD Diplopia (Primary Dx) Discharge Disposition: Left Against Medical Advice 06/11/2025 Travel from Last 3 Months Social History Tobacco Use Types Packs/Day Years Used Date Smoking Tobacco: Never Smokeless Tobacco: Never Tobacco Cessation:Counseling Given: Not Answered Alcohol Use Standard Drinks/Week Comments Not Currently 0 (1 standard drink = 0.6 oz pur e alcohol) Sex and Gender Information Value Date Recorded Sex Assigned at Not on file Legal Sex Male 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 Gender Identity Not on file Sexual Orientation Not on file Last Filed Vital Signs Vital Sign Reading [...] Mass Index 4038.79 06/11/2025 5:56 PM CDT Plan of Treatment Health Maintenance Due Date Last Done Comments PNEUMOCOCCAL VACCINE 50+ YEA RS (1 of 1 - PCV) 1997 07/04/2003 ZOSTER VACCINE (1 of 2) 1997 DTAP/TDAP/TD VACCINES (1 - Tdap) 01/17/2003 01/16/20 03, 11/21/1997 RSV VACCINE (60+ or ) (1 - 1-dose 75+ series) 2022 INFLUENZA VACCINE (#1) 2025 Procedures Procedure Name Priority Date/Time Associated Diagnosis Comments CTA HEAD AND NECK W AND/OR WO CONTRAST Stat 06/11/2025 8:[address] HEAD WO CONTRAST Stat 06/11/2025 6 :16 PM CDT POC GLUCOSE Stat 06/11/2025 6:01 PM CDT BRAIN NATRIURETIC PEPTIDE, BNP OR PROBNP Stat 06/11/2025 6:01 PM CDT COMPREHENSIVE METABOLIC PANEL Stat 06/11/2025 6:01 PM CDT PTT Stat 06/11/2025 6:01 PM CDT PROTIME-INR Stat 06/11/2025 6:01 PM CDT CBC WITH DIFFERENTIAL Stat 06/11/2025 6:01 PM CDT from Last 3 Months Results * CTA HEAD AND NECK W [...] or dissection in the high right neck. us Amira Harris MD CT ORDERABLES Final [...] No acute intracranial abnormality. Narrative Procedure Note Eliigo Padilla MD - 06/11/2025 IMPRESSION: Please see [...] - 99 mg/dL 06/11/2025 6:01 PM CDT [facility] SPECIMEN SOURCE, GLUCOSE POC Whole Blood 06/11/2025 6:01 PM CDT [facility] Blood, whole 06/11/2025 6:01 PM CDT 06/11/2025 6:08 PM CDT us Amira Harris MD POINT OF CARE TESTING Final Res ult [facility] CLIA # [id number] [address] [place] [address] * (ABNORMAL) CBC WITH DIFFERENTIAL (06/11/2025 6:01 PM CDT) WBC 9.5(H) 4.2 - 9.1 K/uL 06/11/2025 6:10 PM [facility] RBC 4.57(L) 4.63 - 6.08 M/uL 06/11/2025 6:10 PM [facility] HEMOGLOBIN 13.9 13.7 - 17.5 g/dL 06/11/2025 6:10 PM [facility] HEMATOCRIT 39.6(L) 40.1 - 51.0 % 06/11/2025 6:10 PM [facility] MCV 86.7 79.0 - 92.2 fL 06/11/2025 6:10 PM [facility] MCH 30.4 25.7 - 32.2 pg 06/11/2025 6:10 PM [facility] MCHC 35.1 32.3 - 36.5 g/dL 06/11/2025 6:10 PM [facility] RDW 13.5 11.0 - 14.5 % 06/11/2025 6:10 PM [facility] RDW-STDEV 41.8 36.9 - 56.9 fL 06/11/2025 6:10 PM [facility] PLATELETS 205 130 - 400 K/uL 06/11/2025 6:10 PM [facility] MPV 9.3(L) 10.0 - 14.8 fL 06/11/2025 6:10 PM CDT [facility] NEUTROPHILS 68 34 - 68 % 06/11/2025 6:10 PM CDT [facility] LYMPHOCYTES 24 22 - 53 % 06/11/2025 6:10 PM CDT [facility] MONOCYTES 5 5 - 12 % 06/11/2025 6:10 PM CDT [facility] EOSINOPHILS 2 1 - 7 % 06/11/2025 6:10 PM CDT [facility] BASOPHILS 0 0 - 1 % 06/11/2025 6:10 PM CDT [facility] IMMATURE GRANULOCYTES 0 % 06/11/2025 6:10 PM CDT [facility] NEUTROPHIL ABSOLUTE 6.51(H) 1.78 - 5.38 K/uL 06/11/2025 6:10 PM CDT [facility] LYMPHOCYTE ABSOLUTE 2.30 1.20 - 3.40 K/uL 06/11/2025 6:10 PM CDT [facility] MONOCYTE ABSOLUTE 0.43 0.30 - 0.82 K/uL 06/11/2025 6:10 PM CDT [facility] EOSINOPHIL ABSOLUTE 0.21 0.04 - 0.54 K/uL 06/11/2025 6:10 PM CDT [facility] BASOPHILS ABSOLUTE 0.03 0.01 - 0.08 K/uL 06/11/2025 6:10 PM CDT [facility] IMMATURE GRANULOCYTES ABSOLUTE 0.04 K/uL 06/11/2025 6:10 PM CDT [facility] Blood BLOOD SPECIMEN / Unknown Collection / Unknown 06/11/2025 6:01 PM CDT 06/11/2025 6:06 PM CDT us Amira Harris MD HEMATOLOGY ORDERABLES Final Res ult [id number] [address] [place] [phone] * PTT (06/11/2025 6:01 PM CDT) PTT 25.7 25.1 - 35.4 seconds 06/11/2025 6:18 PM CDT [facility] Blood BLOOD SPECIMEN / Unknown Collection / Unknown 06/11/2025 6:01 PM CDT 06/11/2025 6:06 PM CDT us Amira Harris MD HEMATOLOGY ORDERABLES Final Res ult Performing Organization Address [facility] Co de Phone Number [facility] CLIA # [id number] [address] [place] [phone] * PROTIME-INR (06/11/2025 6:01 PM CDT) PROTIME 13.3 12.1 - 14.3 Seconds 06/11/2025 6:18 PM CDT [facility] INR 1.0 0.9 - 1.1 06/11/2025 6:18 PM CDT [facility] Blood BLOOD SPECIMEN / Unknown Collection / Unknown 06/11/2025 6:01 PM CDT 06/11/2025 6:06 PM CDT us Amira Harris MD HEMATOLOGY ORDERABLES Final Res ult Performing Organization Address [facility] Phone Number [facility] CLIA # [id number] [address] [place] [phone] * (ABNORMAL) BRAIN NATRIURETIC PEPTIDE, BNP OR PROBNP (06/11/2025 6:01 PM CDT) PROBNP, N TERMINAL 664(H) 0 - 450 pg/mL 06/11/2025 6:24 PM CDT [facility] Comment: INTERPRETIVE COMMENT based on diagnosis: Diagnostic [...] CDT 06/11/2025 6:06 PM CDT us Amira Harrsi MD CHEMISTRY ORDERABLES Final Resu lt [facility] CLIA # [id number] [address] [place] [address] * (ABNORMAL) COMPREHENSIVE METABOLIC PANEL (06/11/2025 6:01 PM CDT) SODIUM 140 136 - 145 mmol/L 06/11/2025 6:24 PM [facility] POTASSIUM 4.4 3.5 - 5.1 mmol/L 06/11/2025 6:24 PM [facility] CHLORIDE 105 98 - 107 mmol/L 06/11/2025 6:24 PM [facility] CO2 23 22 - 29 mmol/L 06/11/2025 6:24 PM [facility] CALCIUM 8.7(L) 8.8 - 10.2 mg/dL 06/11/2025 6:24 PM [facility] BUN 14 8 - 23 mg/dL 06/11/2025 6:24 PM [facility] CREATININE 0.98 0.67 - 1.17 mg/dL 06/11/2025 6:24 PM [facility] Comment:The GFR result is no t clinically significant on patients <18 or >70 years of age. GLUCOSE 281(H) 74 - 99 mg/dL 06/11/2025 6:24 PM [facility] TOTAL PROTEIN 6.5(L) 6.6 - 8.7 g/dL 06/11/2025 6:24 PM [facility] ALBUMIN 3.4(L) 3.5 - 5.2 g/dL 06/11/2025 6:24 PM [facility] BILIRUBIN TOTAL 1.2 0.0 - 1.2 mg/dL 06/11/2025 6:24 PM [facility] ALKALINE PHOSPHATASE 102 40 - 129 U/L 06/11/2025 6:24 PM [facility] AST 16 0 - 50 U/L 06/11/2025 6:24 PM [facility] ALT 7 0 - 50 U/L 06/11/2025 6:24 PM [facility] GFR >60 mL/min/1.7 3 sq meter 06/11/2025 6:24 PM [facility] Comment:eGFR calculated with 2020 CKD-EPI equation. Vegetarian diet, extremely high or low muscle mass, and may affect results. Cystatin C with Glomerular Filtration Rate is a suitable alternative for these patients. ANION GAP 12 5 - 20 mmol/L 06/11/2025 6:24 PM [facility] Blood BLOOD SPECIMEN / Unknown Collection / Unknown 06/11/2025 6:01 PM CDT 06/11/2025 6:06 PM T us Amira Harris MD CHEMISTRY ORDERABLES Final Resu lt [facility] [id number] [address] [place] [phone] from Last 3 Months Insurance [facility] [employer] [facility] [employer] Care Teams Broommaker Relationship Specialty Start Date End Date Michaela Slater FNP [address] [place] [address] PCP - General NURSE PRACTITIONER 12/11/12
--- OUTSIDE RECORDS SUMMARY | 2025-06-13 12:41 | XMS_ITS | Encounter Summary ---
Author Organization [employer] [facility] Address [address] [place] [address] Care Team Providers Care Automation Architect Name Role Phone Michaela Slater FARMWORKER [employer]ARM Primary Care Provider Encounter Details Date Type Department Care Team (Late st Contact Info) Description 12/11/2012 Ancillary Orders [email or web address] [place] [address] [place] [address] 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 Vertebral body and disc space heights are maintained. There is mild degenerative sclerosis on the right at L4-L5 and L5-S1 in the apophyseal joints. IMPRESSION mild osteoarthritis with no acute changes seen Procedure Note Matthew Escobedo MD - 12/12/2012 PROCEDURE XR LUMBAR SPINE, three views 11 December 2012 DESCRIPTION AP and lateral lumbar spine views and collimated lateral L5-S1 projection show prominent anterior osteophyte at L1 to and osteophyte on the left at L2-L3. Vertebral body and disc space heights are maintained. There is mild degenerative sclerosis on the right at L4-L5 and L5-S1 in the apophyseal joints. IMPRESSION mild osteoarthritis with no acute changes seen us Michaela [facility] ORDERABLES Final Result documented in this encounter Visit Diagnoses Diagnosis Low back pain Lumbago Sciatica Low back pain Lumbago Sciatica documented in this encounter Care Teams Automation Architect Relationship Specialty Start Date End Date Michaela Slater FNP [address] [place] [phone] PCP - General NURSE PRACTITIONER 12/11/12 documented as of this encounter
--- OUTSIDE RECORDS SUMMARY | 2025-06-13 12:41 | XMS_ITS | Encounter Summary ---
Author Organization [facility] Address [address] [place] [address] Care Team Providers Care Adjunct Art History Instructor Name Role Phone Michaela Slater Primary Care Provider Reason for Referral * Outpatient Services (Routine) - Closed Specialty Diagnoses / Procedures Referred By Jarrod fernández Referred To Contact Radiology Diagnoses Hyperbilirubinemia Procedures US ABDOMEN COMPLETE Michaela Slater FNP [address] [place] [address] Phone: tel: fax: [facility] [address] [place] [address] Phone: tel: fax: Referral ID Status Reason Start Date Expiration Date Visits Re quested Visits Authorized [id number] Closed 01/04/2013 02/04/2014 1 1 NG CASER Encounter Details Date Type Department Care Team (Late st Contact Info) Description 01/04/2013 Ancillary Orders [facility] Centralized Scheduling [address] [place] [address] Michaela Slater FNP [address] [place], [place] [id number] Hyperbilirubinemia Social History Tobacco Use Types Packs/Day Years Used Date Smoking Tobacco: Never Assessed Sex and Gender Information Value Date Recorded Sex Assigned at Not on file Legal Sex Male 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 Increased echogenicity suggests hepatic steatosis. No hepatic focal defect or duct dilatation is seen. Common bile duct is obscured. Gallbladder shows no stones. There is no pericystic fluid collection. Wall thickness is 2.6 mm. Chi sign is negative. The pancreas is obscured by gas in the LUQ. Aorta and vena cava appear unremarkable to the extent visualized, although visualization is limited in the upper abdomen. . Right renal span is 12.2 cm and left renal span is 11.4 cm. There is a cystic lesion of the upper pole of the right kidney measuring up to 6 cm craniocaudal diameter with AP diameter of 3.9 cm and transverse diameter 3.4 cm. A nodule within measures up to 2.25 cm in diameter. Splenic span is 11 cm. IMPRESSION 1. cystic mass with mural nodule of the upper pole right kidney -- recommend follow-up with consideration for biopsy if there are no previous studies for comparison 2. study limited by bowel gas 3. limited visualization of liver, gallbladder, pancreas, and great vessels in the upper abdomen 4. probable hepatic steatosis 5. mild splenomegaly Procedure Note Matthew Escobedo MD - 01/15/2013 PROCEDURE ULTRASOUND ABDOMEN, 15 January 2013 DESCRIPTION Hepatic measurements are obscured by bowel gas. Increased echogenicity suggests hepatic steatosis. No hepatic focal defect or duct dilatation is seen. Common bile duct is obscured. Gallbladder shows no stones. There is no pericystic fluid collection. Wall thickness is 2.6 mm. Chi sign is negative. The pancreas is obscured by gas in the LUQ. Aorta and vena cava appear unremarkable to the extent visualized, although visualization is limited in the upper abdomen. . Right renal span is 12.2 cm and left renal span is 11.4 cm. There is a cystic lesion of the upper pole of the right kidney measuring up to 6 cm craniocaudal diameter with AP diameter of 3.9 cm and transverse diameter 3.4 cm. A nodule within measures up to 2.25 cm in diameter. Splenic span is 11 cm. IMPRESSION 1. cystic mass with mural nodule of the upper pole right kidney -- recommend follow-up with consideration for biopsy if there are no previous studies for comparison 2. study limited by bowel gas 3. limited visualization of liver, gallbladder, pancreas, and great vessels in the upper abdomen 4. probable hepatic steatosis 5. mild splenomegaly us Michaela ALLEN US ORDERABLES Final Result documented in this encounter Visit Diagnoses Diagnosis Hyperbilirubinemia Disorders of bilirubin excretion Hyperbilirubinemia Disorders of bilirubin excretion documented in this encounter Care Teams Adjunct Art History Instructor Relationship Specialty Start Date End Date Michaela Slater FNP [address] [place] [id number] PCP - General NURSE PRACTITIONER 12/11/12 documented as of this encounter
--- OUTSIDE RECORDS SUMMARY | 2025-06-13 12:41 | XMS_ITS | Patient Health Record ---
Author Organization [facility] Address [address] [place], [place] [address] Care Team Providers Care Strategic Marketing Specialist Name Role Phone Michaela Deluca APRN Primary Care Provider Bo Garrett MD, Ravi Unavailable [phone] Allergies Allergen (clinical drug ingredient) Drug/Non Drug Allergy documented on EMR Reaction Allergy Type Onset Date Status None or not verifiab le (as is Current Medications) (uncoded) Unknown Allergy Active Reason For Referral No Information Medications Medication SIG (Take, Route, Frequency, Duration) Notes Start Date End Date Status lisinopril 20 mg 1/2 tab orally once a day for 30 day(s) Active FLUoxetine 20 mg 1 cap orally once a day for 30 day(s) Active Lantus Solostar Pen 100 units/mL as directed subcutaneously A ctive levothyroxine 50 mcg (0.05 mg) 1 tab orally once a day for 30 day(s) Active HumaLOG 100 units/mL as directed subcutaneously Active glyBURIDE 5 mg 2 tabs orally BID fo r 30 day(s) Active metFORMIN 1000 mg 1 tab orally 2 times a day for 30 day(s) Active Problems Problem Type SNOMED Code ICD Code Onset Dates Problem Status W/U Status Risk Notes Problem Simple renal cyst (30642598) Simple renal cyst (593.2) Active confirmed 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) Active confirmed Problem Lumbar spinal stenosis (77557752) Lumbar spinal stenosis (724.02) Active confirmed Problem Long-term drug therapy (924053080) LONG-TERM USE MEDS NEC (V58.69) Active confirmed r/o substance abuse Problem Solitary sacroiliitis (749707705) Sacroiliitis (720.2) Active confirmed Problem Low back pain (803648006) Low back pain (724.2) Active confirmed Plan Of Treatment No Information Insurance Providers Payer Name Payer Address Payer Phone Subscriber Number Group Number Insured Name Patient Relationship to Insured Coverage Start Date Coverage End Date [employer] Medicare Part B Claims Department [address] [address] [place] [address] [id number] Eligio Ervin Self - patient is the insured FOR LIFE [address] [place] [address] [id number] Eligio Ervin Self - patient is the insured Medical (General) History Medical History History ICD Code See prior documentation
--- OUTSIDE RECORDS SUMMARY | 2025-06-13 12:41 | XMS_ITS | Encounter Summary ---
Author Organization [facility] Address [address] [place]: [place] [address] Care Team Providers Care Fishing Floats Assembler Name Role Phone Michaela Slater Primary Care Provider Encounter Details Date Type Department Care Team (Latest Contact Info) Description 06/11/2025 Travel Social History Tobacco Use Types Packs/Day Years Used Date Smoking Tobacco: Never Smokeless Tobacco: Never Alcohol Use Standard Drinks/Week Comments Not Currently 0 (1 standard drink = 0.6 oz pur e alcohol) Sex and Gender Information Value Date Recorded Sex Assigned at Not on file Legal Sex Male 3:22 PM CANE WEIGHER Gender Identity Not on file Sexual Orientation Not on file documented as of this encounter Plan of Treatment Not on file documented as of this encounter Visit Diagnoses Not on filedocumented in this encounter Care Teams Fishing Floats Assembler Relationship Specialty Start Date End Date Michaela Slater FNP [address] [place] [address] PCP - General NURSE PRACTITIONER 12/11/12 documented as of this encounter
--- OUTSIDE RECORDS SUMMARY | 2025-06-13 12:41 | XMS_ITS | Encounter Summary ---
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 The conus medullaris and cauda equina appear normal. No intradural disease is present. Moderate spondylosis is present diffusely. A few old Schmorl nodes are noted. No active bone lesions are appreciated on the STIR images. The paraspinal tissues are unremarkable. L1-L2: A moderate diffuse bulging disc is present. L2-L3: A mild diffuse bulge of the disc is present. Mild protrusion is present in the left extraforaminal zone without appreciable neural impingement. L3-L4: A mild diffuse bulge of the disc is present. L4-L5: A moderate diffuse bulge of the disc is present. Moderate disc protrusion is present in the right extraforaminal zone displacing the right L4 nerve. Mild disc protrusion is present in the left extraforaminal zone, possibly impinging upon the left L4 nerve. L5-S1: Mild to moderate facet disease is present. Moderate disc extrusion is present in the right foraminal zone compressing the right L5 nerve. Impressions: 1. Moderate disc extrusion on the right at L5-S1 compresses the exiting right L5 nerve. 2. A far lateral disc protrusion of the right L4-L5 displaces the right L4 nerve. A far lateral disc protrusion on the left may impinge on the left L4 nerve. 3. Mild diffuse disc changes and moderate diffuse spondylosis are noted. Dictated By: Yared Rao M.D. Electronically Signed By: Yared Rao M.D. Date Signed: 04/03/08 Procedure Note Yared Rao - 04/03/2008 Ordered by Almas Mar The lumbar spine is normal in sagittal alignment. The conus medullaris andcauda equina appear normal. No intradural disease is present. Moderate spondylosis is present diffusely.A few old Schmorl nodes are noted. No active bone lesions are appreciated on the STIR images. Theparaspinal tissues are unremarkable. L1-L2: A moderate diffuse bulging disc is present. L2-L3: A mild diffuse bulge of the disc is present. Mild protrusion ispresent in the left extraforaminal zone without appreciable neural impingement. L3-L4: A mild diffuse bulge of the disc is present. L4-L5: A moderate diffuse bulge of the disc is present. Moderate discprotrusion is present in the right extraforaminal zone displacing the right L4 nerve. Mild disc protrusion ispresent in the left extraforaminal zone, possibly impinging upon the left L4 nerve. L5-S1: Mild to moderate facet disease is present. Moderate disc extrusionis present in the right foraminal zone compressing the right L5 nerve. Impressions: 1. Moderate disc extrusion on the right at L5-S1 compresses the exitingright L5 nerve. 2. A far lateral disc protrusion of the right L4-L5 displaces the right [id number]. A far lateral disc protrusion on the left may impinge on the left L4 nerve. 3. Mild diffuse disc changes and moderate diffuse spondylosis are noted. Dictated By: Yared Rao M.D. Electronically Signed By: Yared Rao M.D. Date Signed: 04/03/08 us Historical Provider MR ORDERABLES Final Result documented in this encounter Visit Diagnoses Not on filedocumented in this encounter Care Teams Jumpbasting Lining Baster Relationship Specialty Start Date End Date Michaela Slater FNP [address] [place] [id number] PCP - General NURSE PRACTITIONER 12/11/12 documented as of this encounter
--- OUTSIDE RECORDS SUMMARY | 2025-06-13 12:42 | XMS_ITS | Clinical Summary ---
Author Organization [facility] Address [address] [place] [id number] Care Team Providers Care Manufacturing Production Technician Name Role Phone Michaela Slater [facility] Primary Care Provider Social History Tobacco Use Types Packs/Day Years Used Date Smoking Tobacco: Never Assessed Sex and Gender Information Value Date Recorded Sex Assigned at Not on file Legal Sex Male 5:00 AM HAND SOLE SEWER Gender Identity Not on file Sexual Orientation Not on file Plan of Treatment Health Maintenance Due Date Last Done Comments DTAP/TDAP/TD VACCINES (1 - Tdap) 1966 PNEUMOCOCCAL VACCINE 50+ YEARS (1 of 1 - PCV) 08/01/19 97 ZOSTER VACCINE (1 of 2) 1997 RSV VACCINE (60+ or ) (1 - 1-dose 75+ series) 2022 INFLUENZA VACCINE (#1) 2025 Insurance H[address] [place] [id number] MEDICARE PART A AND B [employer] Care Teams Manufacturing Production Technician Relationship Specialty Start Date End Date Michaela Slater FNP [address] [place] [id number] PCP - General NURSE PRACTITIONER 12/11/12
--- OUTSIDE RECORDS SUMMARY | 2025-06-13 12:42 | XMS_ITS | Data Portability ---
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 Plan of Treatment Reminders Order Date Submit Date Provider Last Modified By Organization Details Last Modified Time Details Appointments None recorded. Lab albumin/cre atinine, ratio, urine [address], [address] [place] [address], [address], 11:58:51 urinalysis panel, auto [address], [address] [place] [address], [address], 11:58:51 PSA, serum or plasma 2024 025 [place] [facility], [address] [place], [address], 16:18:42 HbA1c (hemoglobin A1c), blood [address] Clinical Lab, [address] [place], [address], 14:23:51 CBC w/ diff 2024 025 [facility], [address] [place], [place], [address], 16:47:56 CMP, serum or plasma 2024 [facility], [address] [place], [place], [address], 16:48:00 C-reactive protein, quantitativ e, serum or plasma 2024 [facility], [address] [place], [place], [address], 5 16:47:59 ESR (erythrocyt e sedimentati on rate), blood 2024 [facility], [address] [place], [place], [address], 16:47:58 unlisted lab - PT/PTT panel 2024 [facility], [address], [place], [place], [address], 11:24:02 unlisted lab - lyme disease, antibody screen, rflx to immunoblot, serum 2024 [facility], [address], [place], [address], 17:30:59 unlisted lab - ehrlichia chaffeensis antibodies, IgG/IgM by ifa 2024 [facility], [address], [place], [address], 17:31:02 unlisted lab - rickettsia (rmsf) IgG,IgM by ifa 2024 025 [facility], [address], [place], [address], 5 17:31:03 alpha-gal ige, serum 2024 025 [facility], [address], [place], [address], 17:30:58 unlisted lab - allergen, food, beef IgE 2024 025 [facility], [address], [place], [address], 17:31:00 miller IgG Ab, QN, serum 2024 025 [facility], [address], [place], [address], 17:30:55 pork ige, serum 2024 025 [facility], [address], [place], [address], 17:30:56 francisella tularensis Ab, serum 2024 025 [facility], [address], [place], [address], 17:31:05 venison IgE Ab, serum 2024 025 [facility], [address] [place], [address], 5 16:18:21 HbA1c (hemoglobin A1c), blood 2024 025 [email or web address], [address], [place], [address], 5 14:29:00 CBC w/ diff 2024 025 [facility], [address], [place], [address], 5 18:23:43 lipid panel, serum 2024 025 [facility], [address], [place], [address], 5 18:23:47 CMP, serum or plasma 2024 025 [facility], [address], [place], [address], 5 18:23:46 TSH + free T4, serum 2024 025 [facility], [address], [place], [address], 5 18:23:44 Referral adult half-way referral - Attention: [place] [facility]. Social workers are Aubree Beltran and Jo Rousseau Call with questions/c oncerns.fax : David AVILAN/Case Management 2024 025 [email or web address] [facility], [address], [place], [address], 17:08:[address] referral - CALL WITH QUESTIONS/C ONCERNS. FAX: DAVID AVILAN/CASE MANAGEMENT 2024 025 [email or web address] [facility], [address], [address], [place], [address], 11:57:55 Procedures None recorded. Surgeries None recorded. Imaging None recorded. Medication Orders doxycycline hyclate 100 mg capsule 2024 025 [place], [address] [place], [address], 05:02:02 doxycycline hyclate 100 mg capsule 2024 025 [facility] [place], [place], [address] [place], [address], 05:02:02 amoxicillin 875 mg-potassiu m clavulanate 125 mg tablet 2024 025 [place], [address] [place], [address], 11:42:17 Patient TargetsNo targets recorded. 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 FAX:[phone] DAVID SALINAS/CASE MANAGEMENT Referring Physician: Nicole Meeks, Family Medicine, Encounter Date: 03/27/2025 Adult Halfway Referral for Finding of activity of daily living Attention: Direct Care Program. Social workers are Aubree Beltran and Jo Villar [phone] with questions/concerns.fax:[phone] David SALINAS/Case Management Referring Physician: Nicole Meeks, Family Medicine, Encounter Date: 03/27/2025 Results Created Date Observation Date Name Description Value Unit Range Abnormal Flag Note LastModifiedBy Organization Detail LastModifiedTime 01/01/20 25 01/01/2025 CBC WBC 9.5 x10(3 )/uL 2.6 - 8.8 high Not Available [facility] [address], [place], [address], 01/01/2025 18:23:43 01/01/20 25 01/01/2025 CBC RBC 5.37 x10(6 )/uL 3.60 - 5.30 high Not Available [facility] [address], [place], [address], 01/01/2025 18:23:43 01/01/20 25 01/01/2025 CBC HGB 16.6 g/dL 11.3 - 15.7 high Not Available [facility] [address], [place], [address], 01/01/2025 18:23:43 01/01/20 25 01/01/2025 CBC HCT 49.3 % 32.6 - 47.5 high Not Available [facility] [address], [place], [address], 01/01/2025 18:23:43 01/01/20 25 01/01/2025 CBC MCV 91.8 fL 80.3 - 103.4 Not Available [facility] [address], [place], [address], 01/01/2025 18:23:43 01/01/20 25 01/01/2025 CBC MCH 30.9 pg 26.0 - 34.4 Not Available [facility] [address] [place], [address], 01/01/2025 18:23:43 01/01/20 25 01/01/2025 CBC MCHC 33.7 g/dL 31.8 - 36.3 Not Available [facility] [address] [place], [address], 01/01/2025 18:23:43 01/01/20 25 01/01/2025 CBC platelet count 242 x10(3 )/uL 134 - 377 Not Available [facility] [address] [place], [address], 01/01/2025 18:23:43 01/01/20 25 01/01/2025 CBC neut% 64.2 % 38.3 - 69.0 Not Available [facility] [address] [place], [address], 01/01/2025 18:23:43 01/01/20 25 01/01/2025 CBC lymph% 21.9 % 17.5 - 47.9 Not Available [facility] [address] [place], [address], 01/01/2025 18:23:43 01/01/20 25 01/01/2025 CBC mxd% 13.9 % 1.9 - 24.6 Not Available [facility] [address] [place], [address], 01/01/2025 18:23:43 01/01/20 25 01/01/2025 CBC neut# 6.1 x10(3 )/uL 1.2 - 5.3 high Not Available [facility] [address] [place], [address], 01/01/2025 18:23:43 01/01/20 25 01/01/2025 CBC lymph# 2.1 x10(3 )/uL 0.8 - 2.7 Not Available [facility] [address] [place], [address], 01/01/2025 18:23:43 01/01/20 25 01/01/2025 CBC mxd# 1.3 x10(3 )/uL 0.1 - 1.5 Not Available [facility] [address] [place], [address], 01/01/2025 18:23:43 01/01/20 25 01/01/2025 CBC RDW-SD 52.2 fL 33.4 - 49.2 high Not Available [facility] [address] [place], [address], 01/01/2025 18:23:43 01/01/20 25 01/01/2025 CBC RDW-CV 14.8 % 10.8 - 14.9 Not Available [facility] [address] [place], [address], 01/01/2025 18:23:43 01/01/20 25 01/01/2025 CBC MPV 9.7 fL 8.1 - 12.4 Not Available [facility] [address] [place], [address], 01/01/2025 18:23:43 01/01/20 25 01/01/2025 TSH free T4 1.04 NG/mL 0.78 - 2.19 Not Available [facility] [address] [place], [address], 01/01/2025 18:23:44 01/01/20 25 01/01/2025 TSH TSH 4.450 mIU/L 0.465 - 4.680 Not Available [facility] [address] [place], [address], 01/01/2025 18:23:44 01/01/20 25 01/01/2025 COMPR EHENS GLENDY METAB OLIC PANEL (CMP) albumin 3.6 g/dL 3.5 - 5.0 Not Available [facility] [address] [place], [address], 01/01/2025 18:23:46 01/01/20 25 01/01/2025 COMPR EHENS GLENDY METAB OLIC PANEL (CMP) chloride 110 mmol/ L 98 - 107 high Not Available [facility] [address] [place], [address], 01/01/2025 18:23:46 01/01/20 25 01/01/2025 COMPR EHENS GLENDY METAB OLIC PANEL (CMP) creatinine 0.95 mg/dL 0.66 - 1.25 Not Available [facility] [address] [place], [address], 01/01/2025 18:23:46 01/01/20 25 01/01/2025 COMPR EHENS GLENDY METAB OLIC PANEL (CMP) eco2 24 mmol/ L 22 - 30 Not Available [facility] [address] [place], [address], 01/01/2025 18:23:46 01/01/20 25 01/01/2025 COMPR EHENS GLENDY METAB OLIC PANEL (CMP) glucose 114 mg/dL 74 - 106 high Not Available [facility] [address] [place], [address], 01/01/2025 18:23:46 01/01/20 25 01/01/2025 COMPR EHENS GLENDY METAB OLIC PANEL (CMP) potassium 3.80 mmol/ L 3.50 - 5.10 Not Available [facility] [address] [place], [address], 01/01/2025 18:23:46 01/01/20 25 01/01/2025 COMPR EHENS GLENDY METAB OLIC PANEL (CMP) alkaline phos 117 U/L 38 - 126 Not Available [facility] [address] [place], [address], 01/01/2025 18:23:46 01/01/20 25 01/01/2025 COMPR EHENS GLENDY METAB OLIC PANEL (CMP) sodium 141 mmol/ L 137 - 145 Not Available [facility] [address] [place], [address], 01/01/2025 18:23:46 01/01/20 25 01/01/2025 COMPR EHENS GLENDY METAB OLIC PANEL (CMP) total bilirubin 0.9 mg/dL 0.2 - 1.3 Not Available [facility] [address] [place], [address], 01/01/2025 18:23:46 01/01/20 25 01/01/2025 COMPR EHENS GLENDY METAB OLIC PANEL (CMP) total protein 6.8 g/dL 6.3 - 8.2 Not Available [facility] [address] [place], [address], 01/01/2025 18:23:46 01/01/20 25 01/01/2025 COMPR EHENS GLENDY METAB OLIC PANEL (CMP) ALT 15 U/L 0 - 50 Not Available [facility] [address] [place], [address], 01/01/2025 18:23:46 01/01/20 25 01/01/2025 COMPR EHENS GLENDY METAB OLIC PANEL (CMP) BUN/urea 17 mg/dL 9 - 20 Not Available [facility] [address] [place], [address], 01/01/2025 18:23:46 01/01/20 25 01/01/2025 COMPR EHENS GLENDY METAB OLIC PANEL (CMP) eGFR 82 mL/mi n/1.7 3m2 >60 *eGFR Refer ence Value s Michelle l: >60 mL/mi n/1.7 3m2 Abnor mal: < 60 mL/mi n/1.7 3m2 Not Available [facility] [address] [place], [address], 01/01/2025 18:23:46 01/01/20 25 01/01/2025 COMPR EHENS GLENDY METAB OLIC PANEL (CMP) A/G ratio 1.1 (calc ) 1.0 - 2.5 Not Available [facility] [address] [place], [address], 01/01/2025 18:23:46 01/01/20 25 01/01/2025 COMPR EHENS GLENDY METAB OLIC PANEL (CMP) globulin 3.2 g/dL_ (calc ) 1.9 - 3.7 Not Available [facility] [address] [place], [address], 01/01/2025 18:23:46 01/01/20 25 01/01/2025 COMPR EHENS GLENDY METAB OLIC PANEL (CMP) calcium 9.2 mg/dL 8.4 - 10.2 Not Available [facility] [address] [place], [address], 01/01/2025 18:23:46 01/01/20 25 01/01/2025 COMPR EHENS GLENDY METAB OLIC PANEL (CMP) AST 25 U/L 17 - 59 Not Available [facility] [address] [place], [address], 01/01/2025 18:23:46 01/01/20 25 01/01/2025 LIPID PANEL VLDL (calculated) 22 mg/dL (calc ) 0 - 30 Not Available [facility] [address] [place], [address], 01/01/2025 18:23:47 01/01/20 25 01/01/2025 LIPID PANEL direct HDL 45 mg/dL 40 - 60 Not Available [facility] [address] [place], [address], 01/01/2025 18:23:47 01/01/20 25 01/01/2025 LIPID PANEL triglyceride s 109 mg/dL 0 - 199 Not Available [facility] [address] [place], [address], 01/01/2025 18:23:47 01/01/20 25 01/01/2025 LIPID PANEL cholesterol 222 mg/dL <200 Not Available [facility] [address] [place], [address], 01/01/2025 18:23:47 01/01/20 25 01/01/2025 LIPID PANEL chol/DHDL ratio 5 %_(ca lc) 0 - 5 Not Available [facility] [address] [place], [address], 01/01/2025 18:23:47 01/01/20 25 01/01/2025 LIPID PANEL LDL (calculated) 155 mg/dL 0 - 100 high Not Available [facility] [address] [place], [address], 01/01/2025 18:23:47 01/01/20 25 01/02/2025 HEMOG LOBIN A1C hemoglobin A1C 8.2 % <5.7 high The follo wing HbA1c range s recom adrianne d by the Sergio men[facility] [employer] [facility]ul [employer] i[employer] n (ADA) may be used as an aid in the diagn osis of diabe paul sabrinai tus. HbA1c Sugge sted Diagn osis >=6.5 % Diabe tic 5.7% - 6.4% Pre-D iabet ic <5.7% Non-D iabet ic Not Available [facility] [address] [place], [address], 01/02/2025 07:43:48 01/01/2001/02/2025 [id number] estimated average glucose (EAG) 189 mg/dL Estim ated [place] ge Gluco se (eAG) is calcu lated using the equat ion eAG = (28.7 x HbA1c ) - 46.7 based on the guide lines estab lishe d by the ADA. If the patie nt has certa in disea ses inclu ding kidne y disea se, sickl e cell anemi a, thala ssemi a, or is takin g medic ation s such as dapso ne, eryth ropoi etin, or iron, eAG shoul d not be evalu ated. Not Available [facility] [address] [place], [address], 01/02/2025 07:43:49 03/27/2003/27/2025 CBC WBC 13.81 x10(3 )/uL 4.23 - 9.07 high Not Available [facility] [address] [place], [address], 03/27/2025 16:47:56 03/27/20 25 03/27/2025 CBC RBC 4.95 x10(6 )/uL 4.63 - 6.08 Not Available [facility] [address] [place], [address], 03/27/2025 16:47:56 03/27/20 25 03/27/2025 CBC HGB 15.5 g/dL 13.7 - 17.5 Not Available [facility] [address] [place], [address], 03/27/2025 16:47:56 03/27/20 25 03/27/2025 CBC HCT 43.6 % 40.1 - 51.0 Not Available [facility] [address] [place], [address], 03/27/2025 16:47:56 03/27/20 25 03/27/2025 CBC MCV 88.1 fL 79.0 - 92.2 Not Available [facility] [address] [place], [address], 03/27/2025 16:47:56 03/27/20 25 03/27/2025 CBC MCH 31.3 pg 25.7 - 32.2 Not Available [facility] [address] [place], [address], 03/27/2025 16:47:56 03/27/20 25 03/27/2025 CBC MCHC 35.6 g/dL 32.3 - 36.5 Not Available [facility] [address] [place], [address], 03/27/2025 16:47:56 03/27/20 25 03/27/2025 CBC platelet count 294 x10(3 )/uL 163 - 337 Not Available [facility] [address] [place], [address], 03/27/2025 16:47:56 03/27/20 25 03/27/2025 CBC neut% 68.8 % 34.0 - 67.9 high Not Available [facility] [address] [place], [place], [address], 03/27/2025 16:47:56 03/27/20 25 03/27/2025 CBC lymph% 20.5 % 21.8 - 53.1 low Not Available [facility] [address] [place], [address], 03/27/2025 16:47:56 03/27/20 25 03/27/2025 CBC mono% 6.8 % 5.3 - 12.2 Not Available [facility] [address] [place], [address], 03/27/2025 16:47:56 03/27/20 25 03/27/2025 CBC baso% 0.5 % 0.2 - 1.2 Not Available [facility] [address] [place], [address], 03/27/2025 16:47:56 03/27/20 25 03/27/2025 CBC eo% 2.0 % 0.8 - 7.0 Not Available [facility] [address] [place], [address], 03/27/2025 16:47:56 03/27/20 25 03/27/2025 CBC Ig% 1.4 % 0.0 - 0.4 high Not Available [facility] [address] [place], [place], [address], 03/27/2025 16:47:56 03/27/20 25 03/27/2025 CBC neut# 9.50 x10(3 )/uL 1.78 - 5.38 high Not Available [facility] [address], [place], [address], 03/27/2025 16:47:56 03/27/20 25 03/27/2025 CBC lymph# 2.83 x10(3 )/uL 1.32 - 3.57 Not Available [facility] [address] [place], [address], 03/27/2025 16:47:56 03/27/20 25 03/27/2025 CBC mono# 0.94 x10(3 )/uL 0.30 - 0.82 high Not Available [facility] [address] [place], [address], 03/27/2025 16:47:56 03/27/20 25 03/27/2025 CBC baso# 0.07 x10(3 )/uL 0.01 - 0.08 Not Available [facility] [address] [place], [address], 03/27/2025 16:47:56 03/27/20 25 03/27/2025 CBC eo# 0.27 x10(3 )/uL 0.04 - 0.54 Not Available [facility] [address] [place], [address], 03/27/2025 16:47:56 03/27/20 25 03/27/2025 CBC Ig# 0.20 x10(3 )/uL 0.00 - 0.03 high Not Available [facility] [address] [place], [address], 03/27/2025 16:47:56 03/27/20 25 03/27/2025 CBC RDW-CV 13.6 % 11.6 - 14.4 Not Available [facility] [address] [place], [address], 03/27/2025 16:47:56 03/27/20 25 03/27/2025 CBC RDW-SD 44.0 fL 35.1 - 43.9 high Not Available [facility] [address] [place], [address], 03/27/2025 16:47:56 03/27/20 25 03/27/2025 CBC MPV 9.7 fL 9.4 - 12.4 Not Available [facility] [address] [place], [address], 03/27/2025 16:47:56 03/27/20 25 03/27/2025 CBC NRBC# 0.00 x10(3 )/uL 0.00 - 0.01 Not Available [facility] [address] [place], [address], 03/27/2025 16:47:56 03/27/20 25 03/27/2025 CBC NRBC% 0.0 % 0.0 - 0.2 Not Available [facility] [address] [place], [address], 03/27/2025 16:47:56 03/27/20 25 03/27/2025 SED RATE sed rate 20 mm/HR 0 - 20 Not Available [facility] [address] [place], [address], 03/27/2025 16:47:58 03/27/20 25 03/27/2025 CRP CRP 30.5 mg/L 0.0 - 10.0 high Not Available [facility] [address] [place], [address], 03/27/2025 16:47:59 03/27/20 25 03/27/2025 COMPR EHENS GLENDY METAB OLIC PANEL (CMP) albumin 3.8 g/dL 3.5 - 5.0 Not Available [facility] [address] [place], [address], 03/27/2025 16:48:00 03/27/20 25 03/27/2025 COMPR EHENS GLENDY METAB OLIC PANEL (CMP) chloride 108 mmol/ L 98 - 107 high Not Available [facility] [address] [place], [address], 03/27/2025 16:48:00 03/27/20 25 03/27/2025 COMPR EHENS GLENDY METAB OLIC PANEL (CMP) creatinine 1.25 mg/dL 0.66 - 1.25 Not Available [facility] [address] [place], [address], 03/27/2025 16:48:00 03/27/20 25 03/27/2025 COMPR EHENS GLENDY METAB OLIC PANEL (CMP) eco2 23 mmol/ L 22 - 30 Not Available [facility] [address] [place], [address], 03/27/2025 16:48:00 03/27/20 25 03/27/2025 COMPR EHENS GLENDY METAB OLIC PANEL (CMP) glucose 211 mg/dL 74 - 106 high Not Available [facility] [address] [place], [address], 03/27/2025 16:48:00 03/27/20 25 03/27/2025 COMPR EHENS GLENDY METAB OLIC PANEL (CMP) potassium 4.10 mmol/ L 3.50 - 5.10 Not Available [facility] [address] [place], [address], 03/27/2025 16:48:00 03/27/20 25 03/27/2025 COMPR EHENS GLENDY METAB OLIC PANEL (CMP) alkaline phos 110 U/L 38 - 126 Not Available [facility] [address] [place], [address], 03/27/2025 16:48:00 03/27/20 25 03/27/2025 COMPR EHENS GLENDY METAB OLIC PANEL (CMP) sodium 139 mmol/ L 137 - 145 Not Available [facility] [address] [place], [address], 03/27/2025 16:48:00 03/27/20 25 03/27/2025 COMPR EHENS GLENDY METAB OLIC PANEL (CMP) total bilirubin 1.8 mg/dL 0.2 - 1.3 high Not Available [facility] [address] [place], [address], 03/27/2025 16:48:00 03/27/20 25 03/27/2025 COMPR EHENS GLENDY METAB OLIC PANEL (CMP) total protein 7.1 g/dL 6.3 - 8.2 Not Available [facility] [address] [place], [address], 03/27/2025 16:48:00 03/27/20 25 03/27/2025 COMPR EHENS GLENDY METAB OLIC PANEL (CMP) ALT 12 U/L 0 - 50 Not Available [facility] [address] [place], [address], 03/27/2025 16:48:00 03/27/20 25 03/27/2025 COMPR EHENS GLENDY METAB OLIC PANEL (CMP) BUN/urea 20 mg/dL 9 - 20 Not Available [facility] [address] [place], [address], 03/27/2025 16:48:00 03/27/20 25 03/27/2025 COMPR EHENS GLENDY METAB OLIC PANEL (CMP) eGFR 59 mL/mi n/1.7 3m2 >60 low *eGFR Refer ence Value s Michelle l: >60 mL/mi n/1.7 3m2 Abnor mal: < 60 mL/mi n/1.7 3m2 Not Available [facility] [address] [place], [address], 03/27/2025 16:48:00 03/27/20 25 03/27/2025 COMPR EHENS GLENDY METAB OLIC PANEL (CMP) A/G ratio 1.2 (calc ) 1.0 - 2.5 Not Available [facility] [address] [place], [address], 03/27/2025 16:48:00 03/27/20 25 03/27/2025 COMPR EHENS GLENDY METAB OLIC PANEL (CMP) globulin 3.3 g/dL_ (calc ) 1.9 - 3.7 Not Available [facility] [address] [place], [address], 03/27/2025 16:48:00 03/27/20 25 03/27/2025 COMPR EHENS GLENDY METAB OLIC PANEL (CMP) calcium 9.1 mg/dL 8.4 - 10.2 Not Available [facility] [address] [place], [address], 03/27/2025 16:48:00 03/27/20 25 03/27/2025 COMPR EHENS GLENDY METAB OLIC PANEL (CMP) AST 21 U/L 17 - 59 Not Available [facility] [address] [place], [address], 03/27/2025 16:48:00 03/27/20 25 03/27/2025 COMPR EHENS GLENDY METAB OLIC PANEL (CMP) BUN/crea ratio 16 (calc ) 6 - 22 Not Available [facility] [address] [place], [address], 03/27/2025 16:48:00 03/27/20 25 03/28/2025 PT/PT T PANEL PT 11.1 sec 9.5-12 .2 Not Available [facility] [address] [place], [address], 03/28/2025 11:24:02 03/27/20 25 03/28/2025 PT/PT T PANEL INR 1.0 0.9-1. 2 INR Refer ence Range s for patie nts on antic oagul ant thera py: RANGE S: 2.0 - 3.0: Indic ation s: Treat ment of venou s throm bosis or pulmo nary embol ism. Preve ntion of syste jeanette embol ism. Tissu e heart valve s. Acute myoca rdial infar ction . Atria l fibri llati on. 2.5 - 3.5: Indic ation s: Recur rent embol ism. Mecha nical heart valve s. Antip hosph olipi d antib odies . INR IS FOR USE IN STABI LIZED ANTIC OAGUL ATED PATIE NTS. Loma gracia coagu latio n studi es may be seen in patie nts with hemat ocrit of great er than 55%. Refer ence: Pract ical Diagn osis of Hemat ologi bradley Disor ders. 3rd Editi on. 1999. p 853. Not Available [facility] [address] [place], [address], 03/28/2025 11:24:02 03/27/20 25 03/28/2025 PT/PT T PANEL partial thromboplast in time (PTT) 23.4 sec 23.9-3 3.0 low Hepar in thera peuti c range has not been valid ated for this assay . Not Available [facility] [address] [place], [address], 03/28/2025 11:24:02 03/27/20 25 04/03/2025 MILLER IGE ALLER GEN allergen, food, miller IgE 0.11 kU/L <0.10- 0.34 This test was devel oped and its perfo rmanc e caryl cteri stics were deter mined by [facility]. It has not been clear ed or appro joanne by the FDA. The labor atorjulián is regul ated under CLIA as quali fied to perfo rm high- compl exity testi ng. This test is used for clini bradley purpo ses and shoul d not be regar ded as inves tigat ional or for resea [facility]. Not Available [facility] [address] [place], [address], 04/03/2025 17:30:55 03/27/20 25 04/03/2025 ALLER GEN, PORK, IGE allergen, food, pork IgE 0.11 kU/L <0.10- 0.34 Not Available [facility] [address] [place], [address], 04/03/2025 17:30:56 03/27/20 25 04/03/2025 GALAC TOSE- ALPHA -1,3- GALAC TOSE (ALPH A-GAL ) IGE allergen, food, alpha galactose (alpha-gal) IgE 1.21 kU/L <0.10- 0.34 high Not Available [facility] [address] [place], [address], 04/03/2025 17:30:58 03/27/20 25 04/03/2025 LYME DISEA SE, ANTIB ASHER SCREE N, RFLX TO IMMUN OBLOT , SERUM B burgdorferi (lyme disease) IgG NEGATI VE negati ve Not Available [facility] [address] [place], [address], 04/03/2025 17:30:59 03/27/20 25 04/03/2025 LYME DISEA SE, ANTIB ASHER SCREE N, RFLX TO IMMUN OBLOT , SERUM B burgdorferi (lyme disease) IgM NEGATI VE negati ve Not Available [facility] [address] [place], [address], 04/03/2025 17:30:59 03/27/20 25 04/03/2025 ALLER GEN, FOOD, BEEF IGE allergen, food, beef IgE 0.36 kU/L <0.10- 0.34 high Not Available [facility] [address] [place], [address], 04/03/2025 17:31:00 03/27/20 25 04/03/2025 EHRLI MALLORY CHAFF EENSI S ANTIB ODIES , IGG/I GM BY IFA ehrlichia chaffeensis antibody, IgG <1:64 <1:64 INTER PRETI VE INFOR MATIO N: Ehrli mallory Chaff eensi s IgG Ab Less than 1:64 ..... .. Negat glendy: No signi fican t level of Ehrli mallory chaff eensi s IgG antib asher detec gracia. 1:64- 1:128 ..... ..... . Equiv ocal: [facility] ionab le prese nce of Ehrli mallory chaff eensi s IgG antib asher detec gracia. Repea t testi ng in 10-14 days may be helpf ul. 1:256 or great er ..... Posit glendy: Prese nce of IgG antib asher to Ehrli mallory chaff eensi s detec gracia, sugge stive of curre nt or past infec tion. Seroc onver kesha betwe en acute and conva lesce nt sera is consi liyah delgado evide nce of recen t infec tion. The best evide nce for infec tion is a signi fican t belcher e (four fold diffe rence in titer ) on two appro priat breanna timed speci mens, where both tests are done in the same labor atory at the same time. This test was devel oped and its perfo rmanc e caryl cteri stics deter mined by [employer]. It has not been clear ed or appro joanne by the US Food and Drug Admin istra tion. This test was perfo rmed in a CLIA certi fied labor atory and is inten ded for clini bradley purpo ses. Not Available [facility] [address], [place], [address], 04/03/2025 17:31:02 03/27/20 25 04/03/2025 EHRLI MALLORY CHAFF EENSI S ANTIB ODIES , IGG/I GM BY IFA ehrlichia chaffeensis antibody, IgM < 1:16 < 1:16 INTER PRETI VE INFOR MATIO N: Ehrli mallory Chaff eensi s IgM Ab Less than 1:16 ..... .. Negat glendy - No signi fican t level of Ehrli mallory chaff eensi s IgM antib asher detec gracia. 1:16 or great er ..... . Posit glendy - Prese nce of IgM antib asher to Ehrli mallory chaff eensi s detec gracia, sugge stive of curre nt or recen t infec tion. While the prese nce of IgM antib odies sugge st curre nt or recen t infec tion, low level s of IgM antib odies may occas ional ly persi st for more than 12 month s post- infec tion. A singl e IgM resul t shoul d be inter prete d with cauti on. This test was devel oped and its perfo rmanc e caryl cteri stics deter mined by [employer]. It has not been clear ed or appro joanne by the US Food and Drug Admin istra tion. This test was perfo rmed in a CLIA certi fied labor atory and is inten ded for clini bradley purpo ses. Perfo rmed By: [facility] [address] [place] [address] Labor ator Direc tor: Kanchan mena MD, PhD INDIRA Robles r: [id number] Not Available [facility] [address] [place], [address], 04/03/2025 17:31:02 03/27/20 25 04/03/2025 EHRSANDRA TEJADA STEPHANE PAZI S ANTIB ODIES , IGG/I GM BY IFA A. phagocytophi lum Ab IgM < 1:16 < 1:16 INTER PRETI VE INFOR MATIO N: A. phago cytop hilum (HGA) Antib asher, IgM Less than 1:16 - No signi fican t level of IgM antib odies to A. phago cytop hilum detec gracia. Great er than or equal to 1:16 - Sugge stive of a curre nt or recen t infec tion with A. phago cytop hilum . This test was devel oped and its perfo rmanc e acryl cteri stics deter mined by [facility]. It has not been clear ed or appro joanne by the US Food and Drug Admin istra tion. This test was perfo rmed in a CLIA certi fied labor LIBCASTjulián and is inten ded for clini bradley purpo ses. Perfo rmed By: [facility] [address] [place] [address] Lightera Direc tor: Kanchan mena MD, PhD INDIRA Robles r: [id number] [id number] Not Available [facility] [address] [place], [address], 04/03/2025 17:31:02 03/27/20 25 04/03/2025 EHRSANDRA PAZI S ANTIB ODIES , IGG/I GM BY IFA A. phagocytophi lum Ab IgG <1:80 <1:80 INTER PRETI VE INFOR MATIO N: A. phago cytop hilum (HGA) Antib asher, IgG Less than 1:80 - No signi fican t level of IgG antib odies to A. phago cytop hilum detec gracia. Great er than or equal to 1:80 - Sugge stive of a recen t or past infec tion with A. phago cytop hilum . This test was devel oped and its perfo rmanc e caryl cteri stics deter mined by KETAN landaverde. It has not been clear ed or appro joanne by the US Food and Drug Admin istra tion. This test was perfo rmed in a CLIA certi fied lemuel schumacher and is inten ded for clini bradley purpo ses. Not Available [facility] [address] [facility], [address], [place], [address], 04/03/2025 17:31:02 03/27/20 25 04/03/2025 RICKE TTSIA (RMSF ) IGG,I GM BY IFA rmsf IgM titer <1:64 <1:64 INTER PRETI VE INFOR MATIO N: Ricke ttsia ricke ttsii ([place] Fever ) Ab, IgM Less than 1:64 ..... .. Negat glendy - No signi fican t level of IgM antib asher detec gracia. 1:64 or great er ..... . Posit glendy - Prese nce of IgM antib asher detec gracia, which may indic ate a curre nt or recen t infec tion; howev er, low level s of IgM antib odies may occas ional ly persi st for more than 12 month s post- infec tion. Antib asher react ivity to Ricke ttsia ricke ttsii antig en shoul d be consi dered Spott ed Fever group react glendy. Other organ isms withi n the group inclu de R. akari , R. paulino rii, R. marita daquan and RLisa barnard ica. Seroc onver kesha, a fourf old or great er rise in antib asher titer , betwe en acute and conva lesce nt sera is consi dered stron g evide nce of recen t infec tion. Acute -phas e speci mens are colle cted durin g the first week of illne ss and conva lesce nt-ph ase sampl es are gener ally obtai rico 2-4 weeks after resol ution of illne ss. [place] ly these sampl es shoul d be teste d simul taneo usly at the same facil ity. If the sampl e submi tted was colle julia delgado the acute -phas e of illne ss, submi t a marke d conva lesce nt sampl e withi n 25 days for paire d testi ng. The CDC does not use IgM resul ts for routi ne diagn ostic testi ng of [place] ain Spott [place] Fever , as the respo nse may not be speci fic for the agent (resu lting in false posit luz) and the IgM respo nse may be persi stent from past infec tion. Perfo rmed By: [facility] Labor atori es [address] [place] [address] Labor atory Dire tor: Kanchan mena MD, PhD INDIRA Robles r: [id number] Not Available [facility] [address] [place] [address], [place], [address], 04/03/2025 17:31:03 03/27/20 25 04/03/2025 RICKE TTSIA (RMSF ) IGG,I GM BY IFA rmsf IgG titer 1:128 <1:64 high INTER PRETI VE INFOR MATIO N: Ricke ttsia ricke ttsii ([facility] Spott ed Fever ) Ab, IgG Less than 1:64 ..... .. Negat glendy - No signi fican t level of IgG antib asher detec gracia. 1:64 - 1:128 ..... .... Low Posit glendy - Prese nce of IgG Antib asher detec gracia, sugge stive of curre nt or past infec tion. 1:256 or great er ..... Posit glendy - Prese nce of IgG antib asher detec gracia, sugge stive of curre nt or past infec tion. Antib asher react ivity to Ricke ttsia ricke ttsii antig en shoul d be consi dered Spott ed Fever group react glendy. Other organ isms withi n the group inclu de R. akari , R. paulino rii, R. marita daquan and RLisa barnard ica. Seroc onver kesha, a fourf old or great er rise in antib asher titer , betwe en acute and conva lesce nt sera is consi dered stron g evide nce of recen t infec tion. Acute -phas e speci mens are colle cted durin g the first week of illne ss and conva lesce nt-ph ase sampl es are gener ally obtai rico 2-4 weeks after resol ution of illne ss. [place] ly these sampl es shoul d be teste d simul taneo usly at the same facil ity. If the sampl e submi tted was colle cted durin g the acute -phas e of illne ss, submi t a marke d conva lesce nt sampl e withi n 25 days for paire d testi ng. Not Available [facility] [address] [place], [address], 04/03/2025 17:31:03 03/27/20 25 04/03/2025 ALLER GY FOOTN OTES allergy footnotes SEE COMMEN T Refer ence Range s and Clini bradley Impli catio ns of Speci fic IgE Class 0 <0.10 kU/L No signi fican t level detec gracia Class 1 0.10- 0.34 kU/L Clini bradley relev ance undet ermin ed Class 2 0.35- 0.69 kU/L Low level , ongoi ng sensi tizat ion Class 3 0.70- 3.49 kU/L Moder ate level , stron maria esther ongoi ng sensi tizat ion Class 4 3.50- 17.49 kU/L High level of sensi tizat ion Class 5 17.50 -49.9 9 kU/L Very high level of sensi tizat ion Class 6 >=50. 00 kU/L Very high level of sensi tizat ion Not Available [facility] [address] [place], [address], 04/03/2025 17:31:05 03/27/20 25 04/03/2025 JETHRO Bruce TULAR ENSIS ANTIB ODIES , IGG AND IGM francisella tularensis antibody, IgG NEGATI VE negati ve Not Available [facility] [address] [place], [address], 04/03/2025 17:31:05 03/27/20 25 04/03/2025 JETHRO Bruce TULAR ENSIS ANTIB ODIES , IGG AND IGM francisella tularensis antibody, IgM NEGATI VE negati ve Not Available [facility] [address] [place], [address], 04/03/2025 17:31:05 03/27/20 25 04/03/2025 JETHRO Bruce TULAR ENSIS ANTIB ODIES , IGG AND IGM fracisella tularensis antibody interpretati on SEE NOTE No signi fican t level of IgG/I gM antib asher to Jethro bruce tular ensis detec gracia. INTER PRETI VE INFOR MATIO N: F. tular ensis Antib asher Inter preta tion Cross -reac tivit y with Saran lla and Yersi john antib odies may occur . False -posi tive resul ts are possi ble, there fore resul ts shoul d be inter prete d with cauti on and corre lated with clini bradley infor matio n. Confi rmati on by anoth er metho d, such as agglu tinat ion may be helpf ul. This test was devel oped and its perfo rmanc e caryl cteri stics deter mined by [employer]. It has not been clear ed or appro joanne by the U.S. Food and Drug Admin istra tion. This test was perfo rmed in a CLIA- certi fied labor atory and is inten ded for clini bradley purpo ses. Perfo rmed By: [facility] [address] [place] [address] [facility] tor: Kanchan mena MD, PhD INDIRA Robles r: [id number] Not Available [facility] [address] [place], [address], 04/03/2025 17:31:05 04/01/20 25 04/01/2025 HGBA1 C % HGBA1C 8.6 % 4.0 - 6.0 high non-d iabet ic range : 4-6% ADA Targe t:<7% Above Targe t: 8-12% Not Available [facility] [address] [place], [address], 04/01/2025 17:21:31 05/27/20 25 05/27/2025 PSA PSA 2.200 NG/mL 0.000 - 4.000 Not Available [facility] [address] [place], [address], 05/27/2025 16:18:42 05/27/20 25 05/27/2025 album in/cr eatin ine, ratio , urine Albumin 150 mg/L (abnor mal) Not Available [address], [address], 05/27/2025 11:34:43 05/27/20 25 05/27/2025 album in/cr eatin ine, ratio , urine Creatinine 200 mg/dL (michelle l) Not Available [address], [address], 05/27/2025 11:34:43 05/27/20 25 05/27/2025 album in/cr eatin ine, ratio , urine A:C Ratio >300 mg/g (high abnorm al) Not Available [address], [address], 05/27/2025 11:34:43 05/27/20 25 05/27/2025 urina lysis panel , auto glucose 1+ abnormal Not Available [address] [place], [address], 05/27/2025 11:34:54 05/27/20 25 05/27/2025 urina lysis panel , auto bilirubin NEGATI VE normal Not Available [address] [place], [address], 05/27/2025 11:34:54 05/27/2005/27/2025 urina lysis panel , auto ketone NEGATI VE normal Not Available [address] [place], [address], 05/27/2025 11:34:54 05/27/2005/27/2025 urina lysis panel , auto specific gravity >=1.03 0 normal Not Available [address] [place], [address], 05/27/2025 11:34:54 05/27/20 25 05/27/2025 urina lysis panel , auto blood NEGATI VE normal Not Available [address] [place], [address], 05/27/2025 11:34:54 05/27/2005/27/2025 urina lysis panel , auto pH 6.0 normal Not Available [address] [place], [address], 05/27/2025 11:34:54 05/27/2005/27/2025 urina lysis panel , auto protein 2+ abnormal Not Available [address] [place], [address], 05/27/2025 11:34:54 05/27/20 25 05/27/2025 urina lysis panel , auto urobilinogen 1.0 E.U./ dL normal Not Available [address], [address], 05/27/2025 11:34:54 05/27/20 25 05/27/2025 urina lysis panel , auto nitrite NEGATI VE normal Not Available [address], [address], 05/27/2025 11:34:54 05/27/20 25 05/27/2025 urina lysis panel , auto leukocytes NEGATI VE normal Not Available [address], [address], 05/27/2025 11:34:54 05/27/20 25 05/27/2025 urina lysis panel , auto color NOT ENTERE D normal Not Available [address], [address], 05/27/2025 11:34:54 05/27/20 25 05/27/2025 urina lysis panel , auto clarity NOT ENTERE D normal Not Available [address], [address], 05/27/2025 11:34:54 06/13/20 25 06/12/2025 MRI, head, w/wo contr ast No observ ation record ed. [facility] [address] [place], [address], 06/13/2025 11:04:15 Result Notes None recorded. Problems Name Problem SNOMED Code Status Onset Date Resolution Date Notes Provider Name and Address Organization Details Recorded Time Consulta tion Completed 200511/29/2016 Category : DD; Medicine Descript ion: Outpatie nt Physicia n Consulta tion; Display in Medcin: YES; Display in ESB: YES; Confiden tiality Level: Level 1 SOPHIA PERAZA NP [address], [address] , [facility] 7 10:48:35 Type 1 diabetes mellitus without complica tion [id number] Completed 200511/29/2016 Modified By: NEVILLE GRANADOS; Category : DD; Examiner : Sophia Peraza; Medicine Descript ion: DIABETES MELLITUS TYPE 1 WITHOUT COMPLICA TION; Display in Medcin: NO; Display in ESB: YES; Confiden tiality Level: Level 1 SOPHIA PERAZA NP [address], [address] , [facility] 7 10:33:31 Hyperlip idemia 80366937 Active 2005 Modified By: MICHAELA DELUCA ; Category : DD; Examiner : Michaela Deluca I.; Medicine Descript ion: HYPERLIP IDEMIA; Display in Medcin: YES; Display in ESB: NO; Confiden tiality Level: Level 1 Not Available [facility] 6 21:45:37 Hypothyr oidism 15163900 Active 2005 Modified By: MICHAELA DELUCA ; Category : DD; Examiner : Michaela Deluca I.; Medicine Descript ion: HYPOTHYR OIDISM; Display in Medcin: YES; Display in ESB: YES; Confiden tiality Level: Level 1 Not Available [facility] 6 21:45:37 Large prostate [id number] Completed 200503/07/2017 Modified By: DASIA CARMICHAEL; Category : DD; Examiner : DASIA CARMICHAEL; Medicine Descript ion: PROSTATI C ADENOMA; Display in Medcin: YES; Display in ESB: YES; Confiden tiality Level: Level 1 Annabelle Bates LPN null, [facility] 7 11:01:22 Type 2 diabetes mellitus without complica tion [id number] Active 2005 Modified By: MICHAELA DELUCA ; Category : DD; Examiner : Michaela Deluca I.; Medicine Descript ion: DIABETES MELLITUS UNDER CONTROL; Display in Medcin: YES; Display in ESB: YES; Confiden tiality Level: Level 1 Not Available [facility] 6 21:45:37 Impotenc e Completed 200503/07/2017 Modified By: DASIA CARMICHAEL; Category : DD; Examiner : Dasia Carmichael; Medicine Descript ion: unable to perform sex (impoten ce); Display in Medcin: YES; Display in ESB: YES; Confiden tiality Level: Level 1 [facility] 7 11:01:35 Mood disorder of depresse d type Completed 200509/27/2017 Modified By: DASIA CARMICHAEL; Category : DD; Examiner : Dasia Carmichael; Medicine Descript ion: depressi on; Display in Medcin: YES; Display in ESB: YES; Confiden tiality Level: Level 1 [facility] 7 09:20:08 Hyperlip idemia 50556629 Active 2005 Modified By: MICHAELA DELUCA ; Category : DD; Examiner : MICHAELA DELUCA I.; Medicine Descript ion: HYPERLIP IDEMIA HYPERLIP OPROTEIN EMIAS (Old Classifi cation); Display in Medcin: YES; Display in ESB: YES; Confiden tiality Level: Level 1 Not Available [facility] 6 21:45:45 Divertic ulitis of large intestin e 2167715 Completed 200503/07/2017 Category : DD; Medicine Descript ion: DIVERTIC ULITIS OF COLON; Display in Medcin: YES; Display in ESB: YES; Confiden tiality Level: Level 1 [facility] 7 11:01:47 Abdomina l pain 76083267 Completed 200511/29/2016 Category : DD; Medicine Descript ion: abdomina l pain; Display in Medcin: YES; Display in ESB: YES; Confiden tiality Level: Level 1 SOPHIA PERAZA NP [address], [address] , [facility] 7 10:52:10 Diarrhea 87519452 Completed 200511/29/2016 Category : DD; Medicine Descript ion: diarrhea ; Display in Medcin: YES; Display in ESB: YES; Confiden tiality Level: Level 1 SOPHIA PERAZA NP [address], [address] , [facility] 7 10:51:20 Hyperten sive disorder 84797504 Active 2006 Created By: ALMAS COPPOLA; Modified By: MICHAELA DELUCA ; Category : DD; Examiner : Michaela Deluca I.; Medicine Descript ion: Combined Systolic And Diastoli c Elevatio n; Display in Medcin: YES; Display in ESB: YES; Confiden tiality Level: Level 1 Not Available [facility] 6 21:45:44 Active immuniza tion Completed 200603/07/2017 Created By: ALMAS COPPOLA; Category : DD; Examiner : Almas Coppola; Medicine Descript ion: Tetanus toxoid - need for vaccinat ion; Display in Medcin: YES; Display in ESB: YES; Confiden tiality Level: Level 1 Annabelle Bates LPN [facility] 7 11:01:32 Acute bronchit is 12919328 Completed 200711/29/2016 Created By: ALMAS COPPOLA; Modified By: ANDREEA BARAJAS; Category : DD; Examiner : ANDREEA BARAJAS; Medicine Descript ion: ACUTE BRONCHIT IS; Display in Medcin: YES; Display in ESB: YES; Confiden tiality Level: Level 1 Annabelle Bates LPN [facility] 8 10:49:51 Low back pain 826991712 Completed 200703/07/2017 Created By: ALMAS COPPOLA; Modified By: DASIA CARMICHAEL; Category : DD; Examiner : Dasia Carmichael; Medicine Descript ion: lower back pain; Display in Medcin: YES; Display in ESB: YES; Confiden tiality Level: Level 1 SOPHIA PERAZA NP [address], [address] , [facility] 0 10:38:25 Pharyngi tis [id number] Completed 200811/29/2016 Created By: ANDREEA BARAJAS; Modified By: ANDREEA BARAJAS; Category : DD; Examiner : ANDREEA BARAJAS; Medicine Descript ion: sore throat; Display in Medcin: YES; Display in ESB: YES; Confiden tiality Level: Level 1 SOPHIA PERAZA NP [address], [address] [facility] 7 10:50:48 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 Completed 200811/29/2016 Created By: ANDREEA BARAJAS; Modified By: ANDREEA BARAJAS; Category : DD; Examiner : ANDREEA BARAJAS; Medicine Descript ion: TOOTH ERUPTION DISTURBA NCES; Display in Medcin: YES; Display in ESB: YES; Confiden tiality Level: Level 1 SOPHIA PERAZA NP [address], [address] [facility] 7 10:49:48 Type 2 diabetes mellitus 14788631 Completed 200903/07/2017 Created By: MICHAELA DELUCA ; Modified By: MICKI THOMAS; Category : DD; Examiner : MICHAELA DELUCA I.; Medicine Descript ion: DIABETES MELLITUS POORLY CONTROLL ED; Display in Medcin: YES; Display in ESB: YES; Confiden tiality Level: Level 1 Annabelle Bates LPN [facility] 7 11:01:38 Persiste nt insomnia 938859286 Completed 200903/07/2017 Created By: MICHAELA DELUCA ; Modified By: MICHAELA DELUCA ; Category : DD; Examiner : Michaela Deluca I.; Medicine Descript ion: PRIMARY INSOMNIA IDIOPATH IC; Display in Medcin: YES; Display in ESB: YES; Confiden tiality Level: Level 1 Annabelle Bates LPN [facility] 7 11:02:22 Proteinu ree [id number] Completed 200911/29/2016 Created By: MICHAELA DELUCA ; Modified By: MICHAELA DELUCA ; Category : DD; Examiner : Michaela Deluca I.; Medicine Descript ion: MICROALB UMINURIA ; Display in Medcin: YES; Display in ESB: YES; Confiden tiality Level: Level 1 SOPHIA PERAZA NP [address], [address] , [facility] 7 10:50:25 Long-ter m drug therapy Completed 201003/07/2017 Created By: MICHAELA DELUCA ; Modified By: SOPHIA PERAZA; Category : DD; Examiner : Sophia Peraza; Medicine Descript ion: taking medicati on for a long time; Display in Medcin: YES; Display in ESB: YES; Confiden tiality Level: Level 1; Type: Neno Bates LPN [facility] 7 11:01:25 Screenin g procedur e Completed 201011/29/2016 Created By: MICHAELA DELUCA ; Modified By: SOPHIA PERAZA; Category : DD; Examiner : Sophia Peraza; Medicine Descript ion: visit for: screenin g malignan t neoplasm colon; Display in Medcin: YES; Display in ESB: YES; Confiden tiality Level: Level 1; Type: Neno PERAZA NP [address], [address] , [facility] 7 10:51:51 Screenin g for malignan t neoplasm of prostate Completed 201003/07/2017 Created By: MICHAELA DELUCA ; Modified By: NEVILLE GRANADOS; Category : DD; Examiner : Michaela Deluca I.; Medicine Descript ion: visit for: screenin g exam malignan t neoplasm prostate ; Display in Medcin: NO; Display in ESB: YES; Confiden tiality Level: Level 1; Type: Neno Alanis Paulo [facility] 7 11:01:44 Neoplasm of skin 197289366 Completed 201103/07/2017 Created By: MICHAELA DELUCA ; Modified By: NEVILLE GRANADOS; Category : DD; Examiner : Sophia Peraza; Medicine Descript ion: BONE NEOPLASM ; Display in Medcin: NO; Display in ESB: YES; Confiden tiality Level: Level 1; Type: Neno Vasqueznaun Bates [facility] 7 11:01:05 Blood in urine 53445310 Completed 201111/29/2016 Created By: MICKI THOMAS; Modified By: NEVILLE JANUARY; Category : DD; Examiner : Michaela Deluca I.; Medicine Descript ion: blood in urine; Display in Medcin: NO; Display in ESB: YES; Confiden tiality Level: Level 1; Type: Neno PERAZA NP [address], [address] , [facility] 7 10:50:34 Evaluati on procedur e Completed 201111/29/2016 Created By: GIULIA WRAY; Modified By: SOPHIA PERAZA; Category : DD; Examiner : Sophia Peraza; Medicine Descript ion: Observat ion For Suspecte d Conditio n; Display in Medcin: YES; Display in ESB: YES; Confiden tiality Level: Level 1; Type: Neno PERAZA NP [address], [address] , [facility] 7 10:51:55 Pannicul itis affectin g back [id number] Completed 201211/29/2016 Created By: MICHAELA DELUCA ; Modified By: NEVILLE JANUARY; Category : DD; Examiner : Michaela Deluca I.; Medicine Descript ion: PANNICUL ITIS AFFECTIN G NECK OR BACK SACRAL AND SACROCOC CYGEAL REGION; Display in Medcin: NO; Display in ESB: YES; Confiden tiality Level: Level 1; Type: Neno PERAZA NP [address], [address] , [facility] 7 10:51:13 Pannicul itis of neck [id number] Completed 201211/29/2016 Created By: MICHAELA DELUCA ; Modified By: NEVILLE JANUARY; Category : DD; Examiner : Michaela Deluca I.; Medicine Descript ion: PANNICUL ITIS AFFECTIN G NECK OR BACK SACRAL AND SACROCOC CYGEAL REGION; Display in Medcin: NO; Display in ESB: YES; Confiden tiality Level: Level 1; Type: Neno PERAZA NP [address], [address] [place] [address] , [facility] 7 10:49:39 Enzyme level - finding Completed 201211/29/2016 Created By: MICHAELA DELUCA ; Modified By: NEVILLE JANUARY; Category : DD; Examiner : Michaela Deluca I.; Medicine Descript ion: MACROAMY LASEMIA; Display in Medcin: NO; Display in ESB: YES; Confiden tiality Level: Level 1; Type: Neno PERAZA NP [address], [address] , [facility] 7 10:50:20 Biliuria [id number] Completed 201203/07/2017 Created By: MICHAELA DELUCA ; Modified By: NEVILLE JANUARY; Category : DD; Examiner : Michaela Deluca I.; Medicine Descript ion: Urine Tests Nonspeci fic Abnormal Findings Biliuria ; Display in Medcin: NO; Display in ESB: YES; Confiden tiality Level: Level 1; Type: Diagnoskendal Bates, MERCANTILE REPORTER null, [facility] 7 11:01:54 Disorder s of bilirubi n excretio n [id number] Completed 201203/07/2017 Created By: MICHAELA DELUCA ; Modified By: MICHAELA DELUCA ; Category : DD; Examiner : Michaela Deluca I.; Medicine Descript ion: HYPERBIL IRUBINEM IA; Display in Medcin: YES; Display in ESB: YES; Confiden tiality Level: Level 1; Type: Neno Bates, MERCANTILE REPORTER null, [facility] 7 11:02:24 Neuralgi a [id number] Completed 201203/07/2017 Created By: SHANIQUA SKINNER; Modified By: SHANIQUA SKINNER; Category : DD; Examiner : Shaniqua Skinner; Medicine Descript ion: RADICULO SAMANTHA; Display in Medcin: YES; Display in ESB: YES; Confiden tiality Level: Level 1; Type: Neno Bates, MERCANTILE REPORTER null, [facility] 7 11:01:08 Acute sinusiti s [id number] Completed 201211/29/2016 Created By: SHANIQUA SKINNER; Modified By: NEVILLE JANUARY; Category : DD; Examiner : Shaniqua Skinner; Medicine Descript ion: SINUSITI S ACUTE; Display in Medcin: NO; Display in ESB: YES; Confiden tiality Level: Level 1; Type: Neno PERAZA NP [address], [address] [facility] 7 10:49:17 Neoplasm of uncertai n behavior of skin [id number] Completed 201411/29/2016 Created By: SOPHIA PERAZA; Modified By: NEVILLE JANUARY; Category : DD; Examiner : Sophia Peraza; Medicine Descript ion: SKIN NEOPLASM UNCERTAI N BEHAVIOR ; Display in Medcin: NO; Display in ESB: YES; Confiden tiality Level: Level 1; Type: Neno PERAZA NP [address], [address] , [facility] 7 10:51:41 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 Completed 201411/29/2016 Created By: SOPHIA PERAZA; Modified By: NEVILLE GRANADOS; Category : DD; Examiner : Sophia Peraza; Medicine Descript ion: PREMALIG NANT EYE NEOPLASM ; Display in Medcin: NO; Display in ESB: YES; Confiden tiality Level: Level 1; Type: Neno CORTES STU, DATA PROCESSING EQUIPMENT REPAIRER [address], [address] , [facility] 7 10:48:45 Overweig ht [id number] Completed 201403/07/2017 Created By: ANNA LEON; Modified By: SOPHIA PERAZA; Category : DD; Examiner : Sophia Peraza; Medicine Descript ion: Overweig ht; Display in Medcin: NO; Display in ESB: YES; Confiden tiality Level: Level 1; Type: [facility] albina Annabelle Bates, MERCANTILE REPORTER [facility] 7 11:01:14 Divertic shade of intestin e [id number] Completed 201403/07/2017 Created By: SOPHIA PERAZA; Modified By: SOPHIA PERAZA; Category : DD; Examiner : Sophia Peraza; Medicine Descript ion: INTESTIN AL DIVERTIC ULOSIS WITHOUT PERFORAT ION OR ABSCESS WITHOUT HEMORRHA GE; Display in Medcin: YES; Display in ESB: YES; Confiden tiality Level: Level 1; Type: Neno Vasqueznaun Bates, MERCANTILE REPORTER [facility] 7 11:02:02 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 [id number] Completed 201403/07/2017 Created By: SOPHIA PERAZA; Modified By: SOPHIA PERAZA; Category : DD; Examiner : Sophia Peraza; Medicine Descript ion: SKIN NEOPLASM UPPER EXTREMIT IES MALIGNAN T; Display in Medcin: YES; Display in ESB: YES; Confiden tiality Level: Level 1; Type: eNno Bates, MERCANTILE REPORTER null, [facility] 7 11:02:06 Cellulit is of trunk [id number] Completed 201503/07/2017 Created By: SOPHIA PERAZA; Modified By: SOPHIA PERAZA; Category : DD; Examiner : Sophia Peraza; Medicine Descript ion: CELLULIT IS OF THE TRUNK; Display in Medcin: YES; Display in ESB: YES; Confiden tiality Level: Level 1; Type: Neno Bates, MERCANTILE REPORTER null, [facility] 7 11:01:49 Bacteria l pneumoni a [id number] Completed 201503/07/2017 Created By: SOPHIA PERAZA; Modified By: SOPHIA PERAZA; Category : DD; Examiner : Sophia Peraza; Medicine Descript ion: BACTERIA L PNEUMONI A; Display in Medcin: YES; Display in ESB: YES; Confiden tiality Level: Level 1; Type: Neno Bates, MERCANTILE REPORTER null, [facility] 7 11:01:52 Follow-u p visit Completed 201511/29/2016 Created By: SOPHIA PERAZA; Modified By: SOPHIA PERAZA; Category : DD; Examiner : Sophia Peraza; Medicine Descript ion: visit for: follow-u p exam; Display in Medcin: YES; Display in ESB: YES; Confiden tiality Level: Level 1; Type: Neno PERAZA, DATA PROCESSING EQUIPMENT REPAIRER [address], [address] , [facility] 7 10:49:26 Viral screenin g Completed 201511/29/2016 Created By: SOPHIA PERAZA; Modified By: SOPHIA PERAZA; Category : DD; Examiner : Sophia Peraza; Medicine Descript ion: visit for: screenin g exam dengue fever; Display in Medcin: YES; Display in ESB: YES; Confiden tiality Level: Level 1; Type: Neno PERAZA EDWARD [address], [address] , [facility] 7 10:49:57 Sciatica [id number] Completed 201503/07/2017 Created By: SOPHIA PERAZA; Modified By: SOPHIA PERAZA; Category : DD; Examiner : Sophia Peraza; Medicine Descript ion: NEURITIS SCIATIC; Display in Medcin: YES; Display in ESB: YES; Confiden tiality Level: Level 1; Type: Diagnosi s Annabelle BatesBRAD [facility] 7 11:01:17 Acute bronchit is [id number] Completed 201704/04/2018 Created By: ALMAS COPPOLA; Modified By: ANDREEA BARAJAS; Category : DD; Examiner : ANDREEA BARAJAS; Medicine Descript ion: ACUTE BRONCHIT IS; Display in Medcin: YES; Display in ESB: YES; Confiden tiality Level: Level 1 Annabelle BRAD Bates [facility] 8 10:49:51 Low back pain [id number] Active 2019 Created By: ALMAS COPPOLA; Modified By: DASIA CARMICHAEL; Category : DD; Examiner : Dasia Carmichael; Medicine Descript ion: lower back pain; Display in Medcin: YES; Display in ESB: YES; Confiden tiality Level: Level 1 SOPHIA PERAZA NP [address], [address] , [facility] 0 10:38:25 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 Procedures Surgical History Date Name Laterality Status Provider Name and Address Organization Details Recorded Time 06/27/20 24 venipuncture completed [facility] 06/27/2024 09:49:20 04/25/20 24 Joint Injection hip knee shoulder completed Nicole Meeks NP [address], [address], [facility] 04/25/2024 14:53:55 05/13/20 23 Corticosteroid joint Injection Hip knee shouler completed [facility] 05/13/2023 15:23:44 02/02/20 22 venipuncture completed SOPHIA PERAZA NP [address], [address], [facility] 02/01/2022 10:44:11 11/03/20 21 venipuncture completed Torie Keith [facility] 11/03/2021 11:09:03 08/04/20 21 venipuncture completed [facility] 08/04/2021 10:49:01 05/01/20 21 venipuncture completed [facility] 05/01/2021 10:37:33 01/20/20 21 venipuncture completed [facility] 01/19/2021 09:58:11 12/15/19 21 venipuncture completed [facility] 12/15/2020 14:08:15 10/21/20 20 venipuncture completed [facility] 10/21/2020 10:49:06 07/07/20 20 venipuncture completed Aurora Raymundo [facility] 07/07/2020 10:38:01 04/04/20 20 venipuncture completed Ihsan Chairezpps [facility] 04/04/2020 10:01:11 01/04/20 20 venipuncture completed Annabelle Bates LPN [facility] 01/04/2020 10:10:08 01/01/20 20 Cataract Surgery completed Annabelle Bates LPN [facility] 01/04/2020 10:32:22 10/05/20 19 venipuncture completed Annabelle Bates LPN [facility] 10/05/2019 11:04:43 09/04/20 19 venipuncture completed Michelle Leon [facility] 09/04/2019 10:03:01 06/04/20 [facility] 06/04/2019 09:33:55 02/15/20 19 venipuncture completed [facility] 02/14/2019 15:38:11 02/03/20 19 venipuncture completed [facility] 02/02/2019 09:42:58 11/06/20 [facility] 09:56:22 08/07/20 18 venipuncture completed Annabelle Bates LPN [facility] 08/07/2018 09:27:11 04/04/20 18 venipuncture completed Annabelle Bates LPN [facility] 04/04/2018 11:05:04 12/27/19 18 venipuncture completed Annabelle Bates LPN [facility] 12/27/2017 09:36:26 09/27/20 17 venipuncture completed Annabelle Bates LPN [facility] 09/27/2017 09:20:57 06/07/20 17 venipuncture completed Alberta Purcell [facility] 06/07/2017 11:37:36 03/07/20 17 venipuncture completed Annabelle Bates LPN [facility] 03/07/2017 11:58:14 11/29/19 17 venipuncture completed SOPHIA PERAZA NP [address], [address], [facility] 11/29/2016 14:04:24 Other completed Annabelle Bates LPN [facility] 08/07/2018 09:23:33 Imaging Results None recorded. Procedure Notes None recorded. Medical Equipment None Reported. Allergies No known drug allergies Medications Name Sig Start Date Stop Date Status Note LastModified by Organization Details LastModified Time Prescript ion - Prior Authoriza tion Request 01/19 completed Not Available Not Available Not Available losartan 50 mg tablet Take 1 tablet every day by oral route. active Not Available Not Available No t Available fluoxetin e 40 mg capsule TAKE 1 CAPSULE DAILY active Not Available Not Available No t Available atorvasta tin 40 mg tablet TAKE 1 TABLET DAILY AT BEDTIME 01/04 completed Not Available Not Available Not Available bupropion HCl SR 150 mg tablet,12 hr sustained -release Take 1 tablet twice a day by oral route for 90 days. active Not Available Not Available No t Available clonidine HCl 0.1 mg tablet Take 1 tablet twice a day by oral route. 02/01 completed Not Available Not Available Not Available doxycycli ne hyclate 100 mg capsule Take 1 capsule twice a day by oral route for 14 days. 04/30 completed Not Available Not Available Not Available azithromy newton 250 mg tablet TAKE 2 TABLET BY MOUTH TODAY THEN TAKE 1 TABLET BY MOUTH DAILY FOR 4 MORE DAYS 11/04 completed Not Available Not Available Not Available glyburide 5 mg tablet TAKE 2 TABLETS TWICE A DAY BEFORE MEALS 01/19 completed Not Available Not Available Not Available minocycli ne 100 mg capsule 03/07 completed Not Available Not Available Not Available meloxicam 15 mg tablet TAKE 1 TABLET DAILY active Not Available Not Available No t Available lisinopri l 20 mg tablet 03/07 completed Not Available Not Available Not Available atenolol 25 mg tablet TAKE 1 TABLET DAILY 10/21 completed Not Available Not Available Not Available amlodipin e 5 mg tablet 10/28 completed Not Available Not Available Not Available sulfameth oxazole 800 mg-trimet hoprim 160 mg tablet 03/07 completed Not Available Not Available Not Available tramadol 50 mg tablet 03/07 completed Not Available Not Available Not Available Depo-Medr ol 80 mg/mL suspensio n for injection Take 80 mg by injectio n route. 04/25 completed Not Available Not Available Not Available levothyro xine 75 mcg tablet Take 1 tablet every day by oral route. 04/07 completed Not Available Not Available Not Available levothyro xine 100 mcg tablet Take 1 tablet every day by oral route. 07/16 completed Not Available Not Available Not Available methocarb meme 750 mg tablet TAKE 1 TABLET BY MOUTH 3 TIMES DAILY NEEDED active Not Available Not Available No t Available amlodipin e 10 mg tablet TAKE 1 TABLET DAILY active Not Available Not Available No t Available metformin 1,000 mg tablet TAKE 1 TABLET TWICE A DAY 09/04 completed OOD per pt (diareeh a when taking ever day) Not Available Not Available Not Available levothyro xine 125 mcg tablet TAKE 1 TABLET DAILY active Not Available Not Available No t Available Synthroid 50 mcg tablet TAKE 1 TABLET DAILY 01/08 completed Not Available Not Available Not Available diclofena c sodium 75 mg tablet,de layed release Take 1 tablet twice a day by oral route as needed. 02/09 completed Not Available Not Available Not Available ergocalci ferol (vitamin D2) 1,250 mcg (50,000 unit) capsule take 1 cap TWICE a month on and each month active Not Available Not Available No t Available dexametha sone sodium phosphate 4 mg/mL injection solution Inject 1 mL by intramus cular route. 04/25 completed Not Available Not Available Not Available Levoxyl 112 mcg tablet TAKE 1 TABLET DAILY (INCREAS ED DOSE) 10/22 completed Not Available Not Available Not Available levofloxa newton 500 mg tablet 03/07 completed Not Available Not Available Not Available lisinopri l 40 mg tablet TAKE 1 TABLET DAILY 05/04 completed cardio stopped and added valsarta n Not Available Not Available Not Available metformin ER 500 mg tablet,ex tended release 24 hr Take 2 tablets every day by oral route for 90 days. 10/28 completed Not Available Not Available Not Available atenolol 50 mg tablet Take 1 tablet every day by oral route. active Not Available Not Available No t Available amoxicill in 875 mg-potass ium clavulana te 125 mg tablet TAKE 1 TABLET BY MOUTH EVERY 12 HOURS FOR 10 DAYS 03/27 completed Not Available Not Available Not Available valsartan 160 mg tablet 05/12 completed Not Available Not Available Not Available azithromy newton 500 mg tablet Take 1 tablet every day by oral route for 3 days. 04/04 completed Not Available Not Available Not Available rosuvasta tin 20 mg tablet Take 1 tablet every day by oral route. 04/04 completed Not Available Not Available Not Available rosuvasta tin 40 mg tablet Take 1 tablet every day by oral route. active Not Available Not Available No t Available ezetimibe 10 mg-simvas tatin 20 mg tablet TAKE 1 TABLET DAILY 06/07 completed Not Available Not Available Not Available valsartan 06/22 completed CARDIOLO GY Not Available Not Available Not Available aripipraz ole 2 mg tablet Take 1 tablet every day by oral route. active Not Available Not Available No t Available Januvia 100 mg tablet TAKE 1 TABLET DAILY 2023 active Not Available Not Available Not Avai lable FreeStyle Lite Strips Take 1 strip 4 times a day by miscell. route. 06/05 completed Not Available Not Available Not Available Lantus Solostar U-100 Insulin 100 unit/mL (3 mL) subcutane ous pen Inject 62 units every day by subcutan eous route for 90 days. 2023 active PT IS NOW INJECTIN G 64 UNITS 01/01/25 [facility] Not Available Not Available Not Available Humalog KwikPen (U-100) Insulin 100 unit/mL subcutane ous Use as directed TID 10/01 completed Not Available Not Available Not Available Durezol 0.05 % eye drops Instill 1 drop every day by ophthalm ic route for 30 days. 11/04 completed Not Available Not Available Not Available Victoza 2-Justus 0.6 mg/0.1 mL (18 mg/3 mL) subcutane ous pen injector 01/31 completed PAP Rx denied. medicati on changed to bydureon per snorris, FACILITY PLANNER Not Available Not Available Not Available Sure Comfort Pen Needle 32 gauge x 32 active Not Available Not Available Not Available Prolensa 0.07 % eye drops Instill 1 drop every day by ophthalm ic route for 30 days. 11/04 completed Not Available Not Available Not Available Farxiga 10 mg tablet Take 1 tablet every day by oral route. 12/14 completed Not Available Not Available Not Available Farxiga 5 mg tablet Take 1 tablet every day by oral route. 11/03 completed Not Available Not Available Not Available Bydureon 2 mg/0.65 mL subcutane ous pen injector Inject 2 mg every week by subcutan eous route. 11/06 completed Not Available Not Available Not Available Jardiance 10 mg tablet TAKE 1 TABLET DAILY active Not Available Not Available No t Available Trulicity 1.5 mg/0.5 mL subcutane ous pen injector Inject 1.5 mg every week by subcutan eous route. 05/01 completed Not Available Not Available Not Available Trulicity 0.75 mg/0.5 mL subcutane ous pen injector INJECT 0.5 ML UNDER THE SKIN EVERY WEEK (STOP OZEMPIC) 10/21 completed Not Available Not Available Not Available Rexulti 1 mg tablet active Not Available Not Available No t Available Rexulti 0.5 mg tablet Take 1 tablet every day by oral route for 14 days. 03/27 completed Not Available Not Available Not Available Repatha SureClick 140 mg/mL subcutane ous pen injector Inject 1 mL every 2 weeks by subcutan eous route for 90 days 05/13 completed Not Available Not Available Not Available BD Ultra-Fin e Micro Pen Needle 32 gauge x 1/4 USE FOUR TIMES A DAY. USE TO INJECT LANTUS ONCE A DAY AND HUMALOG THREE TIMES A DAY NEEDED active Not Available Not Available No t Available Ozempic 1 mg/dose (2 mg/1.5 mL) subcutane ous pen injector 06/04 completed Not Available Not Available Not Available Ozempic 0.25 mg or 0.5 mg (2 mg/1.5 mL) subcutane ous pen injector 0.25 mg SC qwk x4wk, then incr. to 0.5 mg qwk x4wk 10/01 completed Not Available Not Available Not Available FreeStyle Jesús 14 Day Sensor kit CHANGE SENSOR EVERY 14 DAYS DIRECTED 2024 active Not Available Not Available Not Avai lable Voltaren Arthritis Pain 1 % topical gel APPLY 2 GRAMS TO THE AFFECTED AREA(S) BY TOPICAL ROUTE 4 TIMES PER DAY 2023 active Not Available Not Available Not Avai lable Trulicity 3 mg/0.5 mL subcutane ous pen injector Inject 3 mg every week by subcutan eous route. 06/21 completed Not Available Not Available Not Available Ozempic 1 mg/dose (4 mg/3 mL) subcutane ous pen injector Inject 1 mg every week by subcutan eous route. 10/01 completed Not Available Not Available Not Available Ozempic 2 mg/dose (8 mg/3 mL) subcutane ous pen injector Inject 2 mg every week by subcutan eous route. active Not Available Not Available No t Available Ozempic 0.25 mg or 0.5 mg (2 mg/3 mL) subcutane ous pen injector inject 0.25 MG sub-q ONCE A WEEK FOR 4 WEEKS, THEN INCREASE TO 0.5 MG ONCE A WEEK thereaft er 06/28 completed Not Available Not Available Not Available Vitals Date Recorded Body height Body mass index (BMI) Body weight Body temperature Heart rate Oxygen saturation Oxygen saturation in Arterial blood by Pulse oximetry Respiratory rate Systolic And Diastolic Provider Name and Address Organization Details Last Updated DateTime 5 180.34 cm 29 kg/m2 34639.9 1 g 98.2 [degF] 86 /min 94 % 94 % 16 /min 125/80 mm[Hg] Milady LUGO [facility] 5 09:58:35 Date Recorded Body height Body mass index (BMI) Body weight Body temperature Heart rate Oxygen saturation Oxygen saturation in Arterial blood by Pulse oximetry Respiratory rate Systolic And Diastolic Provider Name and Address Organization Details Last Updated DateTime 5 180.34 cm 28.3 kg/m2 18005.8 9 g 98.4 [degF] 102 /min 97 % 97 % 18 /min 122/70 mm[Hg] Elvia Hood [facility] 5 11:47:35 Date Recorded Body height Body mass index (BMI) Body weight Body temperature Heart rate Oxygen saturation Oxygen saturation in Arterial blood by Pulse oximetry Respiratory rate Systolic And Diastolic Provider Name and Address Organization Details Last Updated DateTime 5 180.34 cm 28.8 kg/m2 87514.7 8 g 98.2 [degF] 69 /min 98 % 98 % 18 /min 115/85 mm[Hg] Milady Michael [facility] 5 10:56:55 Social History Question Answer Notes LastModified by Organization Details LastModified Time Tobacco Smoking Status Never Smoker Amado Bates LPN [facility] 11/29/2016 09:38:44 Do You Have An Advance Directive? No Information not available 11/29/2016 Are You Blind Or Do You Have Difficulty Seeing? Yes Wears Glasses Information not available 02/01/2022 Is Blood Transfusion Acceptable In An Emergency? Yes Information not available 02/01/2022 What Is Your Level Of Caffeine Consumption? Occasional Information not available 11/29/2016 How Much Tobacco Do You Chew? 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 No Information not available 01/04/2020 In The 14 Days Before Symptom Onset, Have You Had Close Contact With A Person Who Is Under Investigation For COVID-19 While That Person Was Ill? No Information not available 01/04/2020 Have You Been To An Area Known To Be High Risk For COVID-19? No Information not available 01/04/2020 Are You Deaf Or Do You Have Serious Difficulty Hearing? No Information not available 02/01/2022 What Type Of Diet Are You Following? REGULAR Information not available 11/29/2016 Which Illicit Or Recreational Drugs Have You Used? None Information not available 11/29/2016 Have You Processed Blood Or Body Fluids From An Ebola Virus Disease Patient Without Appropriate PPE? No Information not available 02/01/2022 Education 2 Year College Information not available 11/29/2016 What Is The Highest Grade Or Level Of School You Have Completed Or The Highest Degree You Have Received? [id number] Information not available 09/01/2021 Are There Any Guns Present In Your Home? Yes Information not available 11/29/2016 Hard Of Hearing Or Deaf In One Or Both Ears? No Information not available 11/29/2016 High Number Of Sexual Partners No Information not available 03/07/2017 History Of Inconsistent/no Condom Use No Information not available 03/07/2017 How Many Years Have You Used Illicit Or Recreational Drugs? 0 Information not available 04/04/2020 International Travel None Information not available 03/07/2017 Legally Blind In One Or Both Eyes? 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 0 Information not available 03/07/2017 What Number (0-10) Best Describes How, During The Past Week, Pain Has Interfered With Your Enjoyment In The Past Week 0 Information not available 03/07/2017 What Number (0-10) Best Describes Your Pain On Average In The Past Week 0 Information not available 03/07/2017 Total PEG Score 0 Informati on not available 03/07/2017 Are You Or ? No [email or web address] Information not available 05/12/2023 Most Recent Dental Visit 02/10/2022 [email or web address] Information not available 05/13/2022 Sexual Orientation Straight Or Heterosexual Information not available 09/01/2021 Gender Identity Male [email or web address] Informati on not available 03/23/2018 Eye Exam 03/27/2021 Information not available 05/01/2021 Do You Feel Safe Yes Informa tion not available 05/01/2021 Which Race(s) Are You? 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 No Information not available 05/12/2023 Have You Been Discharged From The Armed Forces Of The [place]? Yes [email or web address] Information not available 05/12/2023 What Language Are You Most Comfortable Speaking? Tuvaluan [email or web address] Information not available 05/12/2023 How Many Family Members, Including Yourself, Do You Currently Live With? 2 [email or web address] Information not available 05/12/2023 What Is Your Housing Situation Today? I Have Housing. [email or web address] Information not available 05/12/2023 Are You Worried About Losing Your Housing? No [email or web address] Information not available 05/12/2023 What Is The Highest Level Of School That You Have Finished? More Than High School Degree. Information not available 05/12/2023 What Is Your Current Work Situation? Unemployed [email or web address] Information not available 05/12/2023 What Is Your Main Insurance? Medicare [email or web address] Information not available 05/12/2023 During The Past Year, What Was The Total Combined Income For You And The Family Members You Live With? This Information Will Help Us Determine If You Are Eligible For Any Benefits. [id number] [email or web address] Information not available 05/12/2023 Has Lack Of Transportation Kept You From Medical Appointments, Meetings, Work Or From Getting Things Needed For Daily Living? No [email or web address] Information not available 05/12/2023 How Often Do You See Or Talk To People That You Care About And Feel Close To? (For Example: Talking To Friends On The Phone, Visiting Friends Or Family, Going To [employer] Or Club Meetings) 5 Or More Times A Week Information not available 05/12/2023 Stress Is When Someone Feels Tense, Nervous, Anxious Or Can't Sleep At Night Because Their Mind Is Troubled. How Stressed Are You? Not At All [email or web address] Information not available 05/12/2023 In The Past Year, Have You Spent More Than 2 Nights In A Row In Intermediate, Custodial, Retirement Center Or Juvenile Correctional Facility? No [email or web address] Information not available 05/12/2023 Are You A Refugee? No Information not available 05/12/2023 Do You Feel Physically And Emotionally Safe Where You Currently Live? I Choose Not To Answer This Question. Information not available 05/12/2023 In The Past Year, Have You Been Afraid Of Your Partner Or Ex-partner? No [email or web address] Information not available 05/12/2023 In The Past Year, Have You Or Any Family Members You Live With Been Unable To Get Food When It Was Really Needed? No [email or web address] Information not available 05/12/2023 In The Past Year, Have You Or Any Family Members You Live With Been Unable To Get Clothing When It Was Really Needed? No [email or web address] Information not available 05/12/2023 In The Past Year, Have You Or Any Family Members You Live With Been Unable To Get Utilities When It Was Really Needed? No [email or web address] Information not available 05/12/2023 In The Past Year, Have You Or Any Family Members You Live With Been Unable To Get Blood Bank Booking Clerk With It Was Really Needed? No Information not available 05/12/2023 In The Past Year, Have You Or Any Family Members You Live With Been Unable To Get Medicine Or Any Health Care (medical, Dental,mental Health, Vision) When Really Needed? No [email or web address] Information not available 05/12/2023 In The Past Year, Have You Or Any Family Member You Live With Been Unable To Get A Phone When Really Needed? No Information not available 05/12/2023 In The Past Year, Have You Or Any Family Members That You Live With Been Unable To Get Any Other Item When It Was Really Needed? No [email or web address] Information not available 05/12/2023 PRAPARE Questions Competed Yes [email or web address] Information not available 05/12/2023 Marital Status Informatio n not available 11/29/2016 What Was The Date Of Your Most Recent Tobacco Screening? 03/27/2025 [email or web address] Information not available 03/27/2025 Mother With HIV? No Informat ion not available 03/07/2017 Do You Use Protection During Sex? No Information not available 02/01/2022 What Is Your Relationship Status? Information not available 09/01/2021 Seat Belts Used Routinely Yes Information not available 11/29/2016 Are You Sexually Active? Yes Information not available 09/27/2017 Sexual Partner Has HIV? No Information not available 03/07/2017 Sexual Partner Uses IV Drugs? No Information not available 03/07/2017 Smoke Alarm In Home Yes Information not available 11/29/2016 How Much Tobacco Do You Smoke? No Information not available 11/06/2018 General Stress Level Low Information not available 11/29/2016 Do You Use Sunscreen Routinely? Yes Information not available 11/29/2016 How Many Years Have You Smoked Tobacco? 0 Information not available 11/04/2020 Have You Used IV Drugs? No Information not available 03/07/2017 Do You Have Difficulty Walking Or Climbing Stairs? No Information not available 02/01/2022 Sex: Male Functional Status Question Answer Note LastModified by Organizat ion Details LastModified Time Do you or have you ever used smokeless tobacco? Never used smokeless tobacco Information not available 09/04/2019 Are you currently employed? No Information not available 09/01/2021 Do you have transportation difficulties? No Information not available 02/01/2022 Are you able to care for yourself? Yes Information n ot available 02/01/2022 Do you have difficulty dressing or bathing? No Information not available 02/01/2022 Do you or have you ever used e-cigarettes or vape? Never used electronic cigarettes Information not available 09/04/2019 What is your exercise level? Moderate Information not available 11/29/2016 Do you use any illicit or recreational drugs? No Information not available 09/01/2021 Do you or have you ever used any other forms of tobacco or nicotine? No Information not available 02/01/2022 What is your level of alcohol consumption? Occasional Information not available 11/29/2016 Are you able to walk? [email or web address] Information not available 03/07/2017 Do you have difficulty doing errands alone? No Information not available 02/01/2022 What is your occupation? retired Information not available 11/29/2016 Mental Status Question Answer Note LastModified by Organization D etails LastModified Time Do you have difficulty concentrating, remembering or making decisions? No Information no t available 02/01/2022 Family History Relationship Description Onset Age of this Age Resolved Age Notes LastModified by Organization Details LastModified Time Father Diabetes mellitus Not available 2016 09:38:10 Mother Heart disease Not available 2016 09:38:28 Medical History Condition Response Other N Gout N Thyroid Disease Y Blood Diseases N Kidney Stones N Hyperthyroidism N Blood Transfusion N Breast Cancer N Hypothyroidism Y Defects or Inherited Disease N Developmental or Behavioral Disorders N Incontinence N Breast Problem N Edema N Difficulty Swallowing N Anesthesia Complications N Endocrine Disorders Y Deep Vein Thrombosis N Meniere's disease N Muscle, Joint, or Bone Problems N Obesity N Vision or Eye Problems N Hearing Loss N Arthritis Y Auditory Hallucinations N Head Injury/Concussion N Infertility N Congenital Anomalies N Abnormal Pap Smear N Cancer Y Stroke N Varicosities N Endometriosis N Bladder or Kidney Problems N High Cholesterol Y Nervous System Disorder N Liver Disease N Headaches N Fibromyalgia N Schizophrenia N Kidney Disease N Abnormal Bleeding N Allergies/Hayfever N Reproductive System Problems N Parkinson's Disease N Ear or Hearing Problems N Learning Disorder N ADD/ADHD N Eating Disorder N Skin Problems N Anemia N MRSA exposure N Constipation N Urinary Problems N Colon Polyps N Brain Injury N Heart Attack (AZ) N Diabetes Y Ovarian Cancer N Bedwetting N Visual Hallucinations N Seizures/Epilepsy N AIDS/HIV N Amnesia N Congestive Heart Failure (CHF) N Eczema N Back Problems N Abuse/Domestic Violence N Diverticulitis N Dementia N Cardiovascular Y Hepatitis N Pulmonary Embolism N Tourette Syndrome N Chronic Ear Infections N Pre-Eclampsia N Hypertension Y Autism Spectrum Disorder (ASD) N Osteoporosis N Thrombophilias N Immunizations Vaccine Type Date Status Note Provider Nam e and Address Organization Details Recorded Time Influenza, adjuvanted, trivalent, PF 9 completed Not Available [facility] 12/08/2019 02:39:18 COVID-19, mRNA, LNP-S, PF, 100 mcg/0.5mL dose or 50 mcg/0.25mL dose 1 completed Bere Daniel null, [facility] 12/28/2023 09:47:01 COVID-19, mRNA, LNP-S, PF, 100 mcg/0.5mL dose or 50 mcg/0.25mL dose 1 completed Bere Daniel [facility], [facility] 12/28/2023 09:47:01 Td(adult) unspecified formulation 3 completed Not Available [facility] 04/09/2025 10:47:05 pneumococcal, unspecified formulation 3 completed Not Available [facility] 04/09/2025 10:47:05 Influenza, split virus, trivalent, preservative 5 completed Bere Daniel null, [facility] 12/28/2023 09:47:01 Influenza, split virus, trivalent, preservative 1 completed Bere Daniel null, [facility] 12/28/2023 09:47:01 Influenza, split virus, trivalent, preservative 2 completed Bere Daniel null, [facility] 12/28/2023 09:47:01 Influenza, split virus, trivalent, preservative 7 completed Bere Daniel null, [facility] 12/28/2023 09:47:01 Tdap 7 completed Not Available [facility] 12/08/2019 02:39:16 Influenza, adjuvanted, trivalent, PF 8 completed Not Available [facility] 12/08/2019 02:39:17 Past Encounters Encounter ID Performer Location Encounter Start Date Encounter Closed Date Diagnosis/Indication Diagnosis SNOMED-CT Code Diagnosis ICD10 Code Diagnosis Note [id number] Gi Bains MD [facility] [place] [address] [place] [address] 11/29/2016 09:26:27 11/29/2016 15:53:51 Type 2 diabetes mellitus without complication 916917753 E11.9 Overweight 490843782 E66 .3 Hypertensive disorder 38 605099 I10 Hyperlipidemia 90594084 E78.5 [id number] Gi Bains MD [facility] [address] [place] [address] 03/07/2017 10:43:10 03/07/2017 14:00:42 Diet education 38129897 Z71.3 Exercises education, guidance, and counseling 671068603 Z71.89 Adult heal th examination 235184938 Z00.00 Viral screening 12833207 4 Z11.59 Lower urin kortney tract symptoms 410733279 R39.9 Screening for malignant neoplasm of prostate 234217357 Z12.5 Refused AILEEN 03/07/17 Hyperlipidemia 85821163 E78.5 Type 2 ramsey betes mellitus without complication 007683960 E11.9 [id number] Dwain Matias [facility] [address] [place] [address] 06/07/2017 11:17:59 06/07/2017 12:58:14 Mood disorder of depressed type 9999082047 9107 F32.9 Type 2 ramsey betes mellitus without complication 995797379 E11.9 Hypertensive disorder 38 927115 I10 Hypothyroidism 87396743 E03.9 Hyperlipidemia 83441798 E78.5 Diet education 07772837 Z71.3 Exercises education, guidance, and counseling 891578339 Z71.89 [id number] Dwain Matias DO [facility] [address] [place] [address] 07/08/2017 11:49:08 07/11/2017 17:49:31 Type 2 diabetes mellitus without complication 308176726 E11.9 Hypertensive disorder 38 705441 I10 [id number] Dwain Matias DO [facility] [address] [place] [address] 09/27/2017 09:08:42 09/27/2017 10:02:31 Diet education 81398904 Z71.3 Exercises education, guidance, and counseling 996716161 Z71.89 Active or passive immunization 008916358 Z23 Type 2 ramsey betes mellitus without complication 794855377 E11.9 Hypertensive disorder 38 905202 I10 Hyperlipidemia 92310511 E78.2 [id number] Dwain Matias [facility] [address] [place] [address] 12/27/2017 09:02:31 12/28/2017 12:38:47 Type 2 diabetes mellitus without complication 049872477 E11.9 Hypertensive disorder 38 028943 I10 Hyperlipidemia 84583315 E78.5 Mood disor loren of depressed type 6612177322 9107 F32.9 Hypothyroidism 12129773 E03.9 [id number] Dwain Matias [facility] [address] [place] [address] 03/23/2018 11:50:29 03/23/2018 12:23:42 Acute bronchitis 63910736 J20.9 [id number] Dwain Ceciliojennifer [facility] [address] [place] [address] 04/04/2018 10:17:49 04/04/2018 13:07:57 Type 2 diabetes mellitus without complication 255754358 E11.9 Hypertensive disorder 38 211676 I10 Hypothyroidism 62202949 E03.9 Hyperlipidemia 98187587 E78.5 Lower urin kortney tract symptoms 973108089 R39.9 Diet education 91250014 Z71.3 Exercises education, guidance, and counseling 437613229 Z71.89 Adult heal th examination 591202915 Z00.01 [id number] Dwain Matias [facility] [address] [place] [address] 04/26/2018 09:40:54 04/26/2018 14:07:24 Type 2 diabetes mellitus without complication 867226788 E11.9 [id number] Dwain Matias [facility] [address] [place] [address] 08/07/2018 09:03:56 08/07/2018 16:18:51 Hypertensive disorder 81443540 I10 Hyperlipidemia 73234023 E78.5 Hypothyroidism 74283903 E03.9 Type 2 ramsey betes mellitus without complication 318452136 E11.9 Active or passive immunization 686559330 Z23 Diet education 73821044 Z71.3 Exercises education, guidance, and counseling 123957150 Z71.89 Uncontroll ed type 2 diabetes mellitus 281545668 E11.65 Mild depression 30901528 3 F32.0 [id number] Dwain Matias [facility] [address] [place] [address] 11/06/2018 09:38:32 11/06/2018 10:45:15 Type 2 diabetes mellitus without complication 068646106 E11.9 Hypertensive disorder 38 148624 I10 Hyperlipidemia 27804771 E78.5 [id number] Dwain Matias [facility] [address] [place] [address] 02/02/2019 09:20:03 02/02/2019 16:51:07 Type 2 diabetes mellitus without complication 381138168 E11.9 Hypertensive disorder 38 456072 I10 Hyperlipidemia 56194761 E78.5 Neck pain 90790861 M54.2 Cyst of skin 503306984 L 72.9 [id number] Dwain Matias [facility] [address] [place] [address] 02/14/2019 15:25:01 02/14/2019 15:40:55 Laboratory test result abnormal 002419715 R89.9 [id number] Dwain Matias [facility] [address] [place] [address] 06/04/2019 09:15:04 06/04/2019 10:28:40 Type 2 diabetes mellitus without complication 287095048 E11.9 Hypertensive disorder 38 277170 I10 Hyperlipidemia 13053964 E78.5 Mild depression 36218058 3 F32.0 Hypothyroidism 39982152 E03.9 [id number] Dwain Matias [facility] [address] [place] [address] 09/04/2019 09:18:38 09/04/2019 10:49:25 Administration of influenza vaccine 48909038 Z23 Type 2 ramsey betes mellitus without complication 768562313 E11.9 Hyperlipidemia 47910319 E78.5 Hypothyroidism 98159852 E03.9 Neoplasm o f uncertain behavior of skin 01426957 D48.5 [id number] Dwain Matias [address] [address] 10/05/2019 10:39:16 10/05/2019 14:45:35 Hyperlipidemia 90592240 E78.5 Type 2 ramsey betes mellitus without complication 401296189 E11.9 Diet education 97777658 Z71.3 Exercises education, guidance, and counseling 648874159 Z71.82 Finding of body mass index 962784048 Z68.29 Hypertensive disorder 38 582847 I10 Mild depression 07326187 3 F32.0 Hypothyroidism 64071822 E03.9 [id number] Dwain Matias [address] [address] 01/04/2020 09:57:00 01/04/2020 11:01:28 Hyperlipidemia 92531045 E78.5 Long-term drug therapy 465816990 Z79.899 Type 2 ramsey betes mellitus without complication 017843925 E11.9 Hypothyroidism 49938662 E03.9 Hypertensive disorder 38 861848 I10 Mild depression 63645247 3 F32.0 Lower urin kortney tract symptoms 124936172 R39.9 [id number] Dwain Matias [address] [address] 04/04/2020 09:31:30 04/04/2020 10:47:37 Hyperlipidemia 41752846 E78.5 Hypertensive disorder 38 493051 I10 Hypothyroidism 98591036 E03.9 Type 2 ramsey betes mellitus without complication 706052639 E11.9 Low back pain 032245774 M54.5 Mild depression 57107227 3 F32.0 [id number] Dwain Matias [address] [address] 05/20/2020 11:21:23 05/20/2020 13:07:46 Hyperlipidemia 40725720 E78.5 Hypertensive disorder 38 202739 I10 Hypothyroidism 40568883 E03.9 Low back pain 560436078 M54.5 Mild depression 59342779 3 F32.0 Type 2 ramsey betes mellitus without complication 487633003 E11.9 Adult heal th examination 298841094 Z00.01 Screening for disorder 065477229 Z13.89 Advance di rective discussed with patient 724388995 Z71.89 Diet education 84136778 Z71.3 Exercises education, guidance, and counseling 016828973 Z71.82 Finding of body mass index 879421708 Z68.29 [id number] Dwain Matias [facility] [address] [place] [address] 06/04/2020 15:52:04 06/04/2020 16:54:23 Type 2 diabetes mellitus without complication 157118926 E11.9 [id number] Dwain Matias [facility] [address] [place] [address] 07/07/2020 09:58:20 07/07/2020 12:16:15 Hyperlipidemia 01705897 E78.5 Hypertensive disorder 38 650872 I10 Hypothyroidism 75137771 E03.9 Type 2 ramsey betes mellitus without complication 899745751 E11.9 Long-term drug therapy 679267746 Z79.219 [id number] Dwain Matias [facility] [address] [place] [address] 07/16/2020 10:15:35 07/16/2020 10:58:39 Hypertensive disorder 23829491 I10 Type 2 ramsey betes mellitus without complication 189909196 E11.9 [id number] Gi Bains MD [facility] [address] [place] [address] 09/23/2020 15:30:18 09/23/2020 17:11:30 Suspected COVID-19 258743430 Z03.89 [id number] Gi Bains MD [facility] [address] [place] [address] 10/21/2020 09:58:49 10/21/2020 12:15:28 Hyperlipidemia 70602773 E78.5 Hypertensive disorder 38 609149 I10 Hypothyroidism 74709887 E03.9 Type 2 ramsey betes mellitus without complication 783907587 E11.9 Vitamin D deficiency 347 57125 E55.9 Fatigue 15930839 R53.83 Mild depression 05343209 3 F32.0 Low back pain 780857151 M54.5 Uncontroll ed type 2 diabetes mellitus 272639290 E11.65 Atypical pneumonia 36896 6009 J18.9 Risk of ex posure to communicable disease 917979610 Z20.9 [id number] Gi Bains MD [facility] [address] [place] [address] 11/04/2020 09:03:40 11/04/2020 11:07:15 COVID-19 352879804 U07.1 Type 2 ramsey betes mellitus without complication 206266537 E11.9 [id number] Gi Bains MD [facility] [address] [place] [address] 12/15/2020 13:57:24 12/15/2020 14:51:00 Hypothyroidism 30246172 E03.9 Neoplasm o f uncertain behavior of skin 90860854 D48.5 Pleuritic pain 2258078 R 07.81 [id number] Gi Bains MD [facility] [address] [place] [address] 01/19/2021 09:47:50 01/19/2021 12:47:34 Hyperlipidemia 62705744 E78.5 Type 2 ramsey betes mellitus without complication 239789396 E11.9 Long-term drug therapy 124205007 Z79.865 [id number] Gi Bains MD [facility] [address] [place] [address] 01/30/2021 10:59:12 01/30/2021 11:47:31 Acute sinusitis 17280830 J01.90 Type 2 ramsey betes mellitus without complication 216672904 E11.9 [id number] Gi Bains MD [facility] [address] [place] [address] 05/01/2021 10:15:35 05/01/2021 12:24:28 Type 2 diabetes mellitus without complication 170220296 E11.9 calculated GFR is 53 continue metformin Hyperlipidemia 59759263 E78.5 Long-term drug therapy 500391010 Z79.899 Chronic ki dney disease stage 3 613162129 N18.30 Hypertensive disorder 38 119809 I10 Vitamin D deficiency 347 12802 E55.9 Taking OTC Mild depression 27300543 3 F32.0 Hypothyroidism 40107312 E03.9 Low back pain 265999217 M54.5 Diet education 53066795 Z71.3 Exercises education, guidance, and counseling 066278027 Z71.82 Finding of body mass index 796824428 Z68.29 [id number] Dwain Rico [address] [address] 08/04/2021 10:13:11 08/04/2021 11:26:34 Hyperlipidemia 34546790 E78.5 Long-term drug therapy 738881930 Z79.899 Uncontroll ed type 2 diabetes mellitus 189725906 E11.65 History of malignant neoplasm of skin 873155250 Z85.828 Type 2 ramsey betes mellitus 77959280 E11.65 Hypertensive disorder 38 170611 I10 Vitamin D deficiency 347 58713 E55.9 Taking OTC Mild depression 65408452 3 F32.0 Type 2 ramsey betes mellitus without complication 002053467 E11.9 calculated GFR is 53 continue metformin Low back pain 609394168 M54.5 Hypothyroidism 64380337 E03.9 [id number] Dwain Rico [address] [address] 09/01/2021 10:53:15 09/01/2021 12:50:51 Adult health examination 326654777 Z00.01 Screening for disorder 129950343 Z13.89 Advance di rective discussed with patient 058490649 Z71.89 Screening for osteoporosis 987751313 Z13.820 Hyperlipidemia 56419532 E78.5 Hypertensive disorder 38 138912 I10 Hypothyroidism 20608561 E03.9 Low back pain 188975772 M54.50 Mild depression 71656629 3 F32.0 Type 2 ramsey betes mellitus without complication 434997109 E11.9 calculated GFR is 53 continue metformin Diet education 15582223 Z71.3 Exercises education, guidance, and counseling 032534094 Z71.82 Finding of body mass index 375301450 Z68.29 [id number] Dwain Rico, [facility] [address] [place] [address] 11/03/2021 10:08:29 11/03/2021 11:40:31 Hyperlipidemia 87231191 E78.5 Type 2 ramsey betes mellitus without complication 513511963 E11.9 calculated GFR is 53 continue metformin Malignant hypertension 96809315 I10 First degr ee atrioventricular block 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 He was changed from lisinopril to valsartan if not controlled will add amlodipine . Send in log of BP after 10 days. No interventi on needed since renal function is preserved. Planning CTA as well. Mild depression 15119724 3 F32.0 Vitamin D deficiency 347 39060 E55.9 Taking OTC Low back pain 951651240 M54.50 Hypothyroidism 11850048 E03.9 [id number] Gi Bains MD [facility] [address] [place] [address] 05/13/2022 09:26:36 05/13/2022 11:02:23 Low back pain 161248032 M54.50 Vitamin D deficiency 347 50832 E55.9 Hyperlipidemia 68977541 E78.5 Hypothyroidism 31193427 E03.9 Uncontroll ed type 2 diabetes mellitus 976773735 E11.65 Mild depression 65107925 3 F32.0 Diet education 70892994 Z71.3 Exercises education, guidance, and counseling [id number] Z71.82 Finding of body mass index 363649085 Z68.28 BMI 28.9 [id number] Shaniqua Rico, DO [facility] [address] [place] [address] 08/11/2022 09:02:09 08/11/2022 09:43:57 Hyperlipidemia 48624556 E78.5 Continue rosuvastat in 40 mg daily. Hypertensive disorder 38 897682 I10 Adequate control with current medication Hypothyroidism 32268890 E03.9 Continue levothyrox ine 125 mcg daily. His previous level was normal in April 2022-Reche ck thyroid at next visit. Type 2 ramsey betes mellitus without complication 139555452 E11.9 His previous A1C on 05/13/2022 was 8.0%; A1c pending. He will continue lantus 60 units, metformin, humalog sliding scale, jardiance, and januvia. Discussed endo referral in future if needed to help manage his diabetes; Pt voiced understand ing.Med refills not needed at this time.Follo w up in 3 months or sooner if problems arise. Vitamin D deficiency 347 36073 E55.9 Body mass index 25-29 - overweight 046902987 Z68.28 Diet education 74981407 Z71.3 Exercises education, guidance, and counseling 129302609 Z71.89 [id number] Shaniqua Rico, DO [facility] [address] [place] [address] 11/10/2022 09:02:48 11/10/2022 09:35:23 Type 2 diabetes mellitus without complication 472319509 E11.9 His previous A1C 7.3%; Today it is 9.1%Discus sed importance of limiting carbohydra paul and eating a diabetic diet.Quest ions encouraged and answered, verbalized understand ing.Follow up in 3 months to check A1C. Hyperlipidemia 38061295 E78.5 Continue rosuvastat in 40 mg daily. Hypertensive disorder 38 600393 I10 Adequate control with current medication Hypothyroidism 85086563 E03.9 Continue levothyrox ine 125 mcg daily. Will recheck his lab today. Long-term drug therapy 719935746 Z79.899 Other labs are pending; Will review and contact patient directly. Body mass index 25-29 - overweight 064385582 Z68.28 BMI 29. Counseled on importance of healthy diet, limiting carbs and 20 to 30 minutes of exercise 3-5 times per week. Diet education 62225052 Z71.3 Exercises education, guidance, and counseling 208097384 Z71.89 [id number] BRANDEN LOGAN DO [facility] [address] [place] [address] 11/30/2022 10:29:28 11/30/2022 11:39:34 Hemoglobin above reference range 585394238 R71.8 [id number] BRANDEN LOGAN DO [facility] [address] [place] [address] 02/09/2023 08:59:30 02/09/2023 09:59:25 Hypothyroidism 63763306 E03.9 He will continue the levothyrox ine 125 mcg. Will check his thyroid levels today if medication needs adjusted will let patient know. Hyperlipidemia 81617484 E78.5 Currently on rosuvastat in 40 mg daily. Type 2 ramsey betes mellitus without complication 181878025 E11.9 His A1C has improved to 8.0. It previously was 9.1%Recomm ended to have a snack before bedtime to help prevent low blood sugar.Ques tions encouraged and answered, verbalized understand ing.Follow up in 3 months to check A1C. Body mass index 25-29 - overweight 945730801 Z68.29 BMI 29.7 Hypertensive disorder 38 270809 I[address] Pako Farmer MD. He had an appointmen t two weeks ago. Will obtain his office note from his appointmen t two weeks ago. He is keeping a log of his blood pressure. [id number] BRANDEN DOREEN, DO [facility] [address] [place] [address] 05/12/2023 09:20:39 05/13/2023 09:51:22 Hyperlipidemia 03250756 E78.5 Currently on rosuvastat in 40 mg daily. Hypertensive disorder 38 608750 I10 His blood pressure is elevated today. Currently on amlodipine 5 mg, atenolol 50 mg. Will monitor.Hi s cardiologi st Dr. Pako Farmer MD and has an appointmen t scheduled for next month. Hypothyroidism 23700978 E03.9 He will continue the levothyrox ine 125 mcg. Uncontroll ed type 2 diabetes mellitus 624722830 E11.65 His previous A1C on 01/20/2023 was 8.0%. Today it is 8.7%.Discu ssed importance of limiting carbohydra paul and eating a diabetic diet.Quest ions encouraged and answered, verbalized understand ing.Follow up in 3 months to check A1C. Adult [facility] th examination 315424284 Z00.00 Patient presented to office today for their Medicare Annual Wellness Visit. Body mass index 25-29 - overweight 934262336 Z68.29 BMI 29.5 Diet education 59372979 Z71.3 Exercises education, guidance, and counseling 744562417 Z71.89 Mild depression 78873756 3 F32.0 TALA 0 and PHQ 1 He will continue the fluoxetine 40 mg daily. Pain of sh oulder region 09337680 M25.511 Discussed bursitis/t endonitis of right shoulder. Will obtain an x-ray and send to radiologis t to review. Offered steriod injection and will schedule for tomorrow afternoon. [id number] BRANDEN LOGAN DO [facility] [place] [address] [place] [address] 05/13/2023 15:00:09 05/16/2023 09:31:37 Pain of shoulder region 39787361 M25.511 His x-ray reviewed and showed small osteophyte s at joint (bone spurs).Warren riod injection given into right shoulder(4 0 mg of and 1/2 ml of 1% lidocaine and 1 ml marcaine)I f pain not improving or worsening can refer to orthopedis t. Pt voiced understand ing. [id number] BRANDEN LOGAN DO [facility] [place] [address] [place] [address] 08/09/2023 09:32:09 08/10/2023 12:43:22 Hyperlipidemia 60539701 E78.5 Currently on rosuvastat in 40 mg daily. Hypothyroidism 88359534 E03.9 Currently on the levothyrox ine 125 mcg. Uncontroll ed type 2 diabetes mellitus 660302861 E11.65 His previous A1C 8.7%.Curre ntly on 60 units of lantus.Zulema ck labs today and will contact patient with results once reviewed. Body mass index 25-29 - overweight 383841135 Z68.29 BMI 28.6 Depressive disorder 3548 9007 F32.A He will wean off the fluoxetine and then start on wellbutrin . Pain of oulder region 17908168 M25.511 His previous steriod injection was on 05/13/23. Too early for injection today. Start on meloxicam daily. Will schedule follow up in two weeks. [id number] BRANDEN LOGAN DO [facility] [address] [place] [address] 10/28/2023 09:27:44 10/31/2023 09:51:23 Uncontrolled type 2 diabetes mellitus 035630708 E11.65 His previous A1C 7.7%. Today it is 9.0. Not tolerating Metformin due to GI upset. Not taking. Discussed eye exam. Patient will schedule appointmen tOther labs are pending and will contact patient with results. Hypertensive disorder 38 359414 I10 His blood pressure is elevated today. Currently on amlodipine 5 mg, atenolol 50 mg. Will increase amlodipine to 10mg and monitor.Wi s cardiologi st Dr. Pako Farmer MD but missed last appointmen t Hyperlipidemia 74061794 E78.5 Currently on rosuvastat in 40 mg daily. Hypothyroidism 54369715 E03.9 Currently on the levothyrox ine 125 mcg. Mild depression 16770247 3 F32.0 TALA 0 and PHQ 0 He will continue the fluoxetine 40 mg daily. Did not tolerate wellbutrin . Will try rexulti. Low back pain 375332504 M54.50 Advance di rective discussed with patient 695395358 Z71.89 written informatio n provided Diet education 96462833 Z71.3 Exercises education, guidance, and counseling 698663985 Z71.82 Finding of body mass index 518794453 Z68.29 [id number] BRANDEN LOGAN DO [address] [address] 11/08/2023 14:02:22 11/08/2023 15:50:46 Body mass index 25-29 - overweight 360032174 Z68.29 Hypertensive disorder 38 793605 I10 Patient has had elevated BPs. Is not on a Leo/ARB for kidney protection . Will start ARB. Will follow up will regular provider. Peripheral neuropathy due to type 2 diabetes mellitus 9099810521 107 E11.42 Patient has symptoms of peripheral neuropathy . Has some callus formation. Will send for diabetic shoes. Patient is going to have eye exam later this week. Type 2 ramsey betes mellitus without complication 062973990 E11.9 Patient has been on Januvia and is also on Trulicity. Januvia is not doing anything if a GLP-1 is on board other than costing the patient money. Will DC this. [id number] BRANDEN LOGAN DO [facility] [address] [place] [address] 12/28/2023 09:30:46 12/29/2023 11:15:23 Type 2 diabetes mellitus without complication 275225968 E11.9 His A1C previously was 9.1%, today it is 7.7%Recomm ended to have a snack before bedtime to help prevent low blood sugar.Salma kinsey encouraged and answered, verbalized understand ing.Follow up in 3 months to check A1C. Mild depression 47221195 3 F32.0 TALA 0 and PHQ 0 He will continue the fluoxetine 40 mg daily. Did not tolerate wellbutrin . Giovanni has helped. Did not receive script. Will provide samples and send in new script. Diet education 22196518 Z71.3 Exercises education, guidance, and counseling 233083728 Z71.82 Finding of body mass index 458636515 Z68.29 BMI is 29.2 [id number] BRANDEN LOGAN DO [facility] [address] [place] [address] 03/27/2024 09:20:39 03/28/2024 15:45:55 Type 2 diabetes mellitus without complication 150100751 E11.9 His previous A1C 7.7%. Today it is 8.4.Other labs are pending Hypothyroidism 10434400 E03.9 Currently on the levothyrox ine 125 mcg. Mild depression 17241109 3 F32.0 TALA 0 and PHQ 0 He will continue the fluoxetine 40 mg daily. Did not tolerate wellbutrin . Huberulti has helped. Did not receive script. Will provide samples and send in new script. Hyperlipidemia 00022510 E78.5 Currently on rosuvastat in 40 mg daily. Pain of sh oulder region 46120368 M25.511 Uncontroll ed type 2 diabetes mellitus 618575183 E11.65 His previous A1C 7.7%. Today it is 8.4. Not tolerating Metformin due to GI upset. Not taking. Discussed eye exam. Patient will schedule appointmen tOther labs are pending and will contact patient with results. Vitamin D deficiency 347 02730 E55.9 Hypertensive disorder 38 164796 I10 His blood pressure is mildly elevated today. Currently on amlodipine 5 mg, atenolol 50 mg. Will increase amlodipine to 10mg and monitor. Diet education 95359069 Z71.3 Exercises education, guidance, and counseling 127594131 Z71.82 Finding of body mass index 379108367 Z68.29 BMI is 29.4 Low back pain 555180818 M54.50 Controlled with meloxicam [id number] BRANDEN LOGAN DO [facility] [place] [address] [place] [address] 04/19/2024 15:37:52 04/23/2024 08:20:33 Pain of shoulder region 75958484 M25.511 If no improvemen t, call or return to clinic [id number] BRANDEN LOGAN DO [facility] [address] [place] [address] 04/25/2024 14:09:54 04/26/2024 07:42:13 Hypertensive disorder 31779323 I10 Blood pressure has improved 136/64 Bursitis o f right shoulder 1632133710 32300 M75.51 [id number] BRANDEN LOGAN DO [facility] [address] [place] [address] 06/27/2024 09:25:50 06/28/2024 07:44:29 Uncontrolled type 2 diabetes mellitus 326879168 E11.65 His previous A1C 8.4%; Will recheck labs today and contact patient once results are reviewed.W ill increase his ozempic to 0.5 mg weekly and let us know when out and can increase to 1 mg.Unable to provide urine for micro albumin will return sample at later time.Follo w up x3 months or sooner if needed. Hyperlipidemia 76512284 E78.5 Currently on rosuvastat in 40 mg daily. Hypertensive disorder 38 992479 I10 Adequate control with current medication . Hypothyroidism 32462348 E03.9 Adult heal th examination 757235398 Z00.00 Patient presented to office today for their Medicare Annual Wellness Visit. Body mass index 30+ - obesity 933511670 Z68.30 BMI 30 Counseled on importance of healthy diet and 20-30 minutes of exercise 3-5 times per week. Diet education 45696354 Z71.3 Exercises education, guidance, and counseling 404364550 Z71.82 [id number] BRANDEN LOGAN [facility] [address] [place] [address] 10/01/2024 09:32:59 10/02/2024 08:02:44 Hyperlipidemia 41311475 E78.5 Currently on rosuvastat in 40 mg daily. Hypertensive disorder 38 801164 I10 Adequate control with current medication . Hypothyroidism 35557108 E03.9 Uncontroll ed type 2 diabetes mellitus 324502767 E11.65 His previous A1C 8.1%; Will check labs today and contact patient once results are reviewed. Currently on 62 units of lantus. Will increase ozempic to 2 mg weekly. Follow up x3 months or sooner if needed. Body mass index 25-29 - overweight 452725473 Z68.29 BMI 29.1 Diet education 93785074 Z71.3 Exercises education, guidance, and counseling 705410648 Z71.82 Advance di rective discussed with patient 883966564 Z71.89 Discussed with patient Influenza vaccination declined 961902549 Z28.21 Flu vaccine declined [id number] BRANDEN LOGAN DO [facility] [address] [place] [address] 10/03/2024 15:12:04 10/09/2024 14:39:19 Type 2 diabetes mellitus without complication 238627477 E11.9 [id number] BRANDEN LOGAN DO [facility] [address] [place] [address] 01/01/2025 09:30:35 01/02/2025 08:22:01 Body mass index 25-29 - overweight 590988339 Z68.29 BMI 29.1 Diet education 35869689 Z71.3 Exercises education, guidance, and counseling 717061528 Z71.82 Hyperlipidemia 37879748 E78.5 Currently on rosuvastat in 40 mg daily. Hypertensive disorder 38 306940 I10 Hypothyroidism 39307915 E03.9 Type 2 ramsey betes mellitus without complication 391957579 E11.9 Her previous A1C 8.9%; Labs obtained and will contact patient once results are reviewed.D iscussed eating a bedtime snack.Redu ce the lantus to 60 units.Lewis filament test completed. Follow up x3 months or sooner if needed. Low back pain 208892373 M54.50 Controlled with meloxicam Acute sinusitis 42467416 J01.90 Course of antibiotic s given and if symptoms not improving. Renal artery stenosis 30 6538472 I70.[address] visit was in 2022. Recommende d to follow up with cardiologi . Pt declined at this time. [id number] BRANDEN LOGAN DO [facility] [address] [place] [address] 03/27/2025 11:29:17 03/27/2025 15:26:13 Eruption 582905231 R21 Diet education 70514264 Z71.3 Exercises education, guidance, and counseling 039156213 Z71.82 Overweight in adulthood with body mass index of 25 or more but less than 30 990371860 Z68.28 BMI is 28.3 Cyst 960403295 L72.9 Drained out the cyst by squeezing it out and removed the core of the cyst and the pt tolerated well and will start on a round of antibiotic s for treatment. Pt voiced understand ing and is to follow up in the clinic if no improvemen t. Petechiae 974838103 R23. 3 Will send referral to dermatolog y in [place] per pt request, and pt voiced understand ing. Tick bite 54309827 W57.X XXA Finding of activity of daily living 065018715 Z74.1 [id number] BRANDEN LOGAN DO [facility] [address] [place] [address] 04/01/2025 09:33:05 04/02/2025 13:20:15 Type 2 diabetes mellitus 18405522 E11.9 [id number] BRANDEN LOGAN, DO [facility] [place] [address] [place] [address] 04/09/2025 10:44:45 04/10/2025 08:14:30 [place] spotted fever 835750550 A77.0 Completed doxycyline ; Rash on legs resolved. Tested postive for RMSF and has had 10 days of doxy already will extend for another 14 days. Cyst 849654360 L72.9 Healing cyst on his back. [id number] BRANDEN LOGAN DO [facility] [place] [address] [place] [address] 05/27/2025 11:32:27 05/27/2025 17:55:44 Type 2 diabetes mellitus 07940404 E11.9 Health Concerns Section Related Observation LastModified by Organization Detai ls LastModified Time None Recorded Concern Status LastModified by Organization Details LastModified Time None Recorded Advance Directives Directive N: Payers Insurance Date Sequence Insurance Name Policy Number Policy Thorne Covered Member ID Thorne Member ID Guarantor Name 06/04/2025 2 FOR LIFE ( - MEDICARE SUPPLEMENT) Eligio Ervin [id number] Eligio Ervin 05/27/2025 NGS [facility] [place] - [place] - [facility] (MEDICARE) Eligio Ervin [id number] Eligio Ervin 05/27/2025 2 SOUTH () Eligio Ervin [id number] Eligio Ervin 05/27/2025 1 [place] Eligio Ervin [id number] Eligio Ervin 06/04/2025 1 [place] (MEDICARE REPLACEMENT HMO) [id number] Eligio Ervin [id number] Eligio Ervin Notes Date Note Type Note Provider Name and Address Organization Details Recorded Time 01/01/2025 text/html Patient is here for check up and labs.He reports at times his sugar is running low and had a reading of 60s.Two weeks ago he reports he passed out. During that time he has had trouble with his sinuses. He had been outside working and he went inside his house then fell over onto his couch. He thinks he was out for a couple seconds. He hasn't had any other episodes since then.He denies chest pain. Denies shortness of breath.Also continues to have sinus pressure and has had ringing in his ears. Nicole Meeks NP [address], [address], [facility] 01/01/2025 15:23:39 03/27/2025 text/html Pt presents in the clinic today to discuss a sore on his back and has a rash present on legs bilaterally knees down.Pt declined his PHQ scoring.Pt has a sore on his back that is draining, said it showed up around 2 weeks ago and his granddaughter popped it and night before last he rolled over in bed and it hurt.Said it also has a bad odor.Has a dark red rash present on legs bilaterally. Dark red smaller spots. The rash is below both knees with no pain or itching.Pt has had a recent tick bite on his trunk and one that was found crawling in the past couple of weeks.Denies having any chest pain.Has not changed any of his medication, states he does take vitamins. Nicole Meeks NP [address], [address], [facility] 03/27/2025 14:41:52 04/09/2025 text/html Patient states the rash on his leg has improved since he completed doxycyline. He tested postive for RMSF. Also needs the cyst looked at on his back. Nicole Meeks NP [address], [address], [facility] 04/09/2025 12:22:05
--- NOTE | 2025-06-13 13:12 | CT_ITS ---
WS: [id number] CT HEAD NONCONTRAST HISTORY: Symptoms of acute stroke, positive diffusion changes on MRI of 06/12/2025 TECHNIQUE: Contiguous axial imaging performed through the brain. Bone and soft tissue windows. Sagittal and coronal reformats reviewed. All CT scans at [facility] use at least one of these dose optimization techniques: automated exposure control; mA and/or kV adjustment per patient size (includes targeted exams where dose is matched to clinical indication); or iterative reconstruction. DLP: 1123.75 mGy COMPARISON: MRI 06/12/2025 No acute intracranial hemorrhage, midline shift or mass effect. Moderate atrophy and small vessel disease. No prior infarcts. No edema or sulcal effacement in the areas of the acute to subacute cortical infarcts noted on recent MRI. Ventricles: Normal size with no hydrocephalus. Paranasal sinuses: As visualized are clear. Mastoid air cells: Well pneumatized. Calvarium and scalp: Skull is intact with no soft tissue edema or swelling. CT/CT head thrombolytic [address] IMPRESSION: 1. No acute intracranial hemorrhage or edema. 2. Moderate atrophy and small vessel disease. Notified Shlomo Cha DO at 06/13/2025 1:30 PM.
--- NOTE | 2025-06-13 13:14 | ECG_ITS ---
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
--- NOTE | 2025-06-13 13:35 | ECG_ITS ---
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1945 Requested By: Shlomo Franco Order Number: [id number] Reading MD: Measurements Intervals [place] Rate: 80 P: -30 IL: 100 QRS: -36 QRSD: 42 T: -22 QT: 349 QTc: 402 Interpretive Statements SINUS RHYTHM WITH SHORT IL INTERVAL LEFT AXIS DEVIATION [QRS AXIS < -30] LOW QRS VOLTAGE [QRS DEFLECTION < 0.5/1.0 mV IN LIMB/CHEST LEADS] POSSIBLE INFERIOR MYOCARDIAL INFARCTION , OF INDETERMINATE AGE [30 ms Q WAVE IN II/aVF] PROBABLE ANTEROSEPTAL MYOCARDIAL INFARCTION , OF INDETERMINATE AGE [35 ms Q WAVE IN V1-V4] MARKED ST ELEVATION, CONSIDER LATERAL INJURY [MARKED ST ELEVATION W/O NORMALLY INFLECTED T-WAVE IN I/aVL/V5/V6] ACUTE MT [email or web address]
[2025-06-13 13:43] VITALS: BP 173/100; PULSE 79; O2SAT 96
--- NOTE | 2025-06-13 13:48 | W.ED.NEUROSD ---
HPI - Neuro Symptoms/Deficit General: Chief Complaint: Neuro Symptoms/Deficit Stated Complaint: stroke like (sent by krista) Time Seen by Provider: 06/13/25 13:11 History of Present Illness: 79-year-old male presents to the emergency room with complaints of headache and vision changes that began 4 days ago. He also has some chest discomfort he had earlier today that is now resolved. Last known well would be 96 hours ago. On initial arrival there is NIH is 0. It actually makes more comments about the chest discomfort. He had moderate chest comfort began while at rest resolved spontaneously has not at this patient does have a history of coronary artery disease and diabetes mellitus. Associated symptoms: Deny chest pain Related Data Home Medications ?Medication ?Instructions ?Recorded ?Confirmed acetaminophen 325 mg tablet 325 mg PO QID PRN 11/23/21 05/26/23 (Tylenol) atenolol 50 mg tablet 50 mg PO DAILY 11/23/21 05/26/23 dapagliflozin propanediol 5 mg 5 mg PO DAILY 11/23/21 05/26/23 tablet (Farxiga) dulaglutide 3 mg/0.5 mL 3 mg SUBCUT .weekly 11/23/21 05/26/23 subcutaneous [facility] ergocalciferol (vitamin D2) 1,250 50,000 unit PO .twice per month 11/23/21 05/26/23 mcg (50,000 unit) capsule fluoxetine 40 mg capsule 40 mg PO DAILY 11/23/21 05/26/23 insulin glargine 100 unit/mL (3 60 unit SUBCUT QAM 11/23/21 05/26/23 mL) subcutaneous pen (Lantus Solostar U-100 Insulin) insulin lispro 100 unit/mL See Rx Instructions SUBCUT TID 11/23/21 05/26/23 subcutaneous pen (Humalog KwikPen (U-100) Insulin) levothyroxine 125 mcg capsule 125 mcg PO DAILY 11/23/21 05/26/23 metformin 500 mg tablet,extended 1,000 mg PO DAILY 11/23/21 05/26/23 release 24 hr methocarbamol 750 mg tablet 750 mg PO TID PRN 11/23/21 05/26/23 rosuvastatin 40 mg tablet 40 mg PO DAILY 11/23/21 05/26/23 sitagliptin phosphate 100 mg 100 mg PO DAILY 11/23/21 05/26/23 tablet (Januvia) Previous Rx's ?Medication ?Instructions ?Recorded valsartan 160 mg tablet 160 mg PO BID #180 tabs 11/01/22 amlodipine 10 mg tablet 10 mg PO DAILY #30 tabs 06/13/25 aspirin 81 mg tablet,delayed 81 mg PO DAILY #30 tabs 06/13/25 release clopidogrel 75 mg tablet (Plavix) 75 mg PO DAILY #30 tabs 06/13/25 Allergies Allergy/AdvReac Type Severity Reaction Status Date / Time No Known Allergies Allergy Verified 05/26/23 15:20 Review of Systems Const: Denies: fever(s) or chills Card: Denies: chest pain Resp: Denies: dyspnea GI: Denies: abdominal pain : Denies: dysuria, urinary frequency or urinary urgency Musc: Denies: neck pain or back pain Skin/Breast: Denies: rash PFSH ED PFSH: Medical History Diabetes Hyperlipidemia Renal artery stenosis Uncontrolled hypertension Family History Father Diabetes Mother CAD (coronary artery disease) Myocardial infarct Brother Myocardial infarct Other Hypertension Social History Smoking and tobacco/nicotine status: never used tobacco/nicotine NIH stroke score NIHSS: Level Of Consciousness - 1a: 0 Level Of Consciousness Questions - 1b: Both Correct Level Of Consciousness Commands - 1c: Both Correct Best Gaze - 2: Normal Visual Armstrong - 3: No Visual Loss Facial Palsy - 4: Normal Motor Arm Right - 5: No Drift Motor Arm Left - 5: No Drift Motor Leg Right - 6: No Drift Motor Leg Left - 6: No Drift Limb Ataxia - 7: Absent Sensory - 8: Normal Best Language - 9: No Aphasia Dysarthia - 10: Normal Extinction And Inattention - 11: 0 Score: Total Score: 0 Physical Exam Const: GENERAL APPEARANCE: cooperative ORIENTATION/CONSCIOUSNESS: Yes awake, Yes oriented to person, Yes oriented to place and Yes oriented to time HENMT: COMMON NORMALS: normocephalic, atraumatic and hearing grossly normal bilaterally HEAD & SCALP: normocephalic and atraumatic Resp: COMMON NORMALS: normal respiratory effort, No retractions, No use of accessory muscles and clear to auscultation bilaterally AUSCULTATION: clear to auscultation bilaterally Cardio: COMMON NORMALS: regular rate, regular rhythm and No murmurs present (Cardio) RATE: regular rate RHYTHM: regular rhythm GI: COMMON NORMALS: Soft to palpation and No hepatosplenomegaly present AUSCULTATION: Yes normoactive bowel sounds PALPATION: Yes Soft to palpation, No Tenderness to palpation present (GI), No Guarding due to palpation present (GI) and Yes No hepatosplenomegaly present Extremity: COMMON NORMALS: normal to inspection, capillary refill normal, no clubbing, cyanosis or edema, no calf tenderness and no pedal edema Neuro: SENSORIUM/ORIENTATION: Yes oriented to person, Yes oriented to place and Yes oriented to time Skin: COMMON NORMALS: no rashes or lesions noted GENERAL SKIN EXAM: no rashes or lesions noted Course Vital Signs: Vital signs: Vital Signs Temperature 97.7 F 06/13/25 12:40 Pulse Rate 79 06/13/25 17:43 Respiratory Rate 17 06/13/25 12:40 Blood Pressure 161/85 06/13/25 17:43 Pulse Oximetry 97 06/13/25 17:43 Oxygen Delivery Me thod Room Air 06/13/25 16:00 MDM - Neuro Symptoms/Deficit Medical Decision Making Believe the patient's symptoms are likely caused by his elevated blood pressure treated with labetalol and hydralazine increase his amlodipine. Stroke score is 0. To the extent he may have had a stroke he is already 4 days and has no focal deficits other than the headache and a complaint of blurred vision okay blurred vision and occasional double vision. Head CT does not show anything acute or subacute. Discharge patient home set him up for an outpatient stress test she is already on high-dose rosuvastatin add clopidogrel and aspirin increase his amlodipine and have him follow-up with his primary care doctor or neurology Medical Records I reviewed the patient's medical records. Lab Data I reviewed the patient's lab results. 06/13/25 13:46 06/13/25 13:[address] 06/13/25 13:12 IMPRESSION: 1. No acute intracranial hemorrhage or edema. 2. Moderate atrophy and small vessel disease. Notified Shlomo Cha DO at 06/13/2025 1:30 PM. Laboratory Results WBC 10.12 10^3/uL (3.29-11.43) 06/13/25 13:46 RBC 4.39 10^6/uL (3.85-5.65) 06/13/25 13:46 Hgb 13.40 g/dL (11.27-16.99) 06/13/25 13:46 Hct 38.7 % (37-53) 06/13/25 13:46 MCV 88.2 fl (82-101) 06/13/25 13:46 MCH 30.5 pg (27-33) 06/13/25 13:46 MCHC 34.6 g/dL (30-55) 06/13/25 13:46 RDW 13.3 % (12.1-15.1) 06/13/25 13:46 Plt Count 216 10^3/cmm (157-399) 06/13/25 13:46 MPV 9.6 fL (7.4-10.4) 06/13/25 13:46 Neut % (Auto) 71.7 % 06/13/25 13:46 Lymph % (Auto) 18.4 % 06/13/25 13:46 [place] % (Auto) 5.8 % 06/13/25 13:46 Eos % (Auto) 2.9 % 06/13/25 13:46 Baso % (Auto) 0.5 % 06/13/25 13:46 Neut # (Auto) 7.26 10^3/uL (1.8-7.7) 06/13/25 13:46 Lymph # (Auto) 1.9 10^3/uL (0.8-4.8) 06/13/25 13:46 [place] # (Auto) 0.6 10^3/uL (0.2-0.9) 06/13/25 13:46 Eos # (Auto) 0.3 10^3/uL (0.0-0.8) 06/13/25 13:46 Baso # (Auto) 0.1 10^3/uL (0.0-0.1) 06/13/25 13:46 Nucleated RBC % (auto) 0 % 06/13/25 13:46 Nucleated RBCs # 0.0 /100WBC 06/13/25 13:46 PT 13.50 SECONDS (12.1-14.9) 06/13/25 13:46 INR 0.96 (0.8-1.2) 06/13/25 13:46 APTT 23.3 SECONDS (23.9-36.7) L 06/13/25 13:46 Sodium 139 mmol/L (136-145) 06/13/25 13:46 Potassium 4.4 mmol/L (3.5-5.1) 06/13/25 13:46 Chloride 104 mmol/L (98-107) 06/13/25 13:46 Carbon Dioxide 24 mmol/L (22-29) 06/13/25 13:46 Anion Gap 15.4 (5-19) 06/13/25 13:46 BUN 12 mg/dL (8-23) 06/13/25 13:46 Creatinine 1.0 mg/dL (0.7-1.2) 06/13/25 13:46 GFR Calculation Not Reportable 06/13/25 13:46 Glucose 163 mg/dL (65-115) H 06/13/25 13:46 POC Glucose 169 mg/dL (70-110) H 06/13/25 14:30 Calculated Osmolality 291 mOsm/kg (285-295) 06/13/25 13:46 Calcium 8.6 mg/dL (8.5-10.5) 06/13/25 13:46 Total Bilirubin 1.1 mg/dL (0.15-1.2) 06/13/25 13:46 AST 12 U/L (0-40) 06/13/25 13:46 ALT 6 U/L (0-41) 06/13/25 13:46 Alkaline Phosphatase 105 U/L (40-130) 06/13/25 13:46 Troponin T Baseline 21 ng/L (0-15) H 06/13/25 13:46 Troponin T 120 Minute 18.59 ng/L (0-15) H 06/13/25 15:42 Delta Troponin T -2.41 ABS# (0-10) L 06/13/25 15:42 Total Protein 5.9 g/dL (6.6-8.7) L 06/13/25 13:46 Albumin 3.3 g/dL (3.5-5.2) L 06/13/25 13:46 Globulin 2.6 g/dL (1.3-4.6) 06/13/25 13:46 Urine Color Yellow (Yellow) 06/13/25 14:37 Urine Appearance Clear (CLEAR) 06/13/25 14:37 Urine pH 5.5 (5-7) 06/13/25 14:37 Ur Specific [place] 1.023 (1.005-1.030) 06/13/25 14:37 Urine Protein 2+ (Negative) A 06/13/25 14:37 Urine Glucose (UA) 1+ (Normal) H 06/13/25 14:37 Urine Ketones Trace (Negative) 06/13/25 14:37 Urine Blood Trace (Negative) A 06/13/25 14:37 Urine Nitrate Negative (Negative) 06/13/25 14:37 Urine Bilirubin Negative (Negative) 06/13/25 14:37 Urine Urobilinogen 2.0 mg/dL (Negative) H 06/13/25 14:37 Ur Leukocyte Esterase Negative (Negative) 06/13/25 14:37 Urine RBC 0-2 /hpf (0-2) 06/13/25 14:37 Urine WBC 0-5 /hpf (0-5) 06/13/25 14:37 Ur Squamous Epith Cells 0-5 /hpf (0-5) 06/13/25 14:37 Amorphous Sediment Not Reportable 06/13/25 14:37 Urine Bacteria None seen /hpf (NONE) 06/13/25 14:37 Hyaline Casts 2.87 /lpf 06/13/25 14:37 Urine Opiates Screen Negative ng/mL (Negative) 06/13/25 14:37 Ur Barbiturates Screen Negative ng/mL (Negative) 06/13/25 14:37 Ur Phencyclidine Scrn Negative ng/mL (Negative) 06/13/25 14:37 Ur Amphetamines Screen Negative ng/mL (Negative) 06/13/25 14:37 U Benzodiazepines Scrn Negative ng/mL (Negative) 06/13/25 14:37 Urine Cocaine Screen Negative ng/mL (Negative) 06/13/25 14:37 U Marijuana (THC) Screen Negative ng/mL (Negative) 06/13/25 14:37 All radiology interpretation(s) finalized by discharge Discharge Plan Discharge Patient Disposition: Home Clinical Impression: Uncontrolled hypertension Condition: Stable Prescriptions: New aspirin 81 mg tablet,delayed release (DR/EC) 81 mg PO DAILY Qty: 30 0RF clopidogrel [Plavix] 75 mg tablet 75 mg PO DAILY Qty: 30 0RF amlodipine 10 mg tablet 10 mg PO DAILY Qty: 30 0RF Discontinued amlodipine 5 mg tablet 5 mg PO DAILY Qty: 90 3RF No Action atenolol 50 mg tablet 50 mg PO DAILY ergocalciferol (vitamin D2) 1,250 mcg (50,000 unit) capsule 50,000 unit PO .twice per month Farxiga 5 mg tablet 5 mg PO DAILY fluoxetine 40 mg capsule 40 mg PO DAILY insulin lispro [Humalog KwikPen Insulin] 100 unit/mL insulin pen See Rx Instructions SUBCUT TID Rx Instructions: Sliding scale SUBCUT three times daily; Januvia 100 mg tablet 100 mg PO DAILY Lantus Solostar U-100 Insulin 100 unit/mL (3 mL) insulin pen 60 unit SUBCUT QAM levothyroxine 125 mcg capsule 125 mcg PO DAILY metformin 500 mg tablet extended release 24 hr 1,000 mg PO DAILY methocarbamol 750 mg tablet 750 mg PO TID PRN rosuvastatin 40 mg tablet 40 mg PO DAILY Trulicity 3 mg/0.5 mL pen injector 3 mg SUBCUT .weekly acetaminophen [Tylenol] 325 mg tablet 325 mg PO QID PRN valsartan 160 mg tablet 160 mg PO BID Qty: 180 3RF Discharge Orders: Discharge ED (Routine); Ordered 06/13/25 Ordered By: Shlomo Cha Referrals: Nicole Meeks NP [Primary Care Provider, Nurse Practitioner] Discharge Diet: Usual diet Discharge Activity: Increase activity as tolerated Patient Instructions: Opioid Safety, Pain Management, Patient Portal & Dc Instructions Activity Restrictions/Additional Instructions: Thank you for choosing [facility] for your healthcare needs today. It is very important that you follow up as instructed or that you return to the Emergency Department should you have concerns or if your condition changes or worsens in any way. You were seen in the emergency room with complaints of double vision and chest discomfort your cardiac enzymes and EKG were normal. There is not any signs of acute coronary syndrome. Your blood pressure was elevated. Your stroke score was [address] of your head did not show any acute findings. We do recommend you improve your blood pressure control increase your amlodipine to 10 mg daily. Will set you up for an outpatient MRI of the head. Finally recommend you add aspirin 81 mg daily and Plavix 75 mg daily. Print Language: Khmer Coding Level of Care Code ED Coffin Maker for Thu Braga
[2025-06-13 14:07] LABS: Hematocrit 38.7 % (37-53); Hemoglobin 13.40 g/dL (11.27-16.99); Mean Corpuscular HGB Conc 34.6 g/dL (30-55); Mean Corpuscular Hemoglobin 30.5 pg (27-33); Mean Corpuscular Volume 88.2 fl (82-101); Nucleated Red Blood Cells % 0 %; Platelet Count 216 10^3/cmm (157-399); Red Blood Count 4.39 10^6/uL (3.85-5.65); White Blood Count 10.12 10^3/uL (3.29-11.43)
[2025-06-13 14:17] LABS: INR 0.96 (0.8-1.2); Prothrombin Time 13.50 SECONDS (12.1-14.9)
[2025-06-13 14:18] LABS: Partial Thromboplastin Time 23.3 SECONDS (23.9-36.7)
[2025-06-13 14:25] LABS: Alanine Aminotransferase 6 U/L (0-41); Albumin Level 3.3 g/dL (3.5-5.2); Alkaline Phosphatase 105 U/L (40-130); Anion Gap 15.4 (5-19); Aspartate Amino Transferase 12 U/L (0-40); Blood Urea Nitrogen 12 mg/dL (8-23); Calcium 8.6 mg/dL (8.5-10.5); Carbon Dioxide 24 mmol/L (22-29); Chloride 104 mmol/L (98-107); Creatinine Clr Calc Pharmacy 73.4440; Globulin 2.6 g/dL (1.3-4.6); Glucose 163 mg/dL (65-115); Osmolality Calculated 291 mOsm/kg (285-295); Potassium 4.4 mmol/L (3.5-5.1); Sodium 139 mmol/L (136-145); Total Protein 5.9 g/dL (6.6-8.7)
[2025-06-13 14:27] LABS: Troponin(5th) Baseline 21 ng/L (0-15)
[2025-06-13 14:30] VITALS: BP 186/108; PULSE 80; O2SAT 95
[2025-06-13 15:07] LABS: Glucose Urine UA 1+ (Normal); Nitrate Urine Negative (Negative); Specific Gravity, Urine 1.023 (1.005-1.030)
[2025-06-13 15:11] LABS: PCP Screen Urine Negative (Negative)
[2025-06-13 15:13] LABS: Add Urine Microscopic? YES
--- NOTE | 2025-06-13 15:14 | ECG_ITS ---
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 Measurements Intervals [place] Rate: 79 P: 0 CA: 0 QRS: 122 QRSD: 134 T: -11 QT: 435 QTc: 499 Interpretive Statements UNCERTAIN RHYTHM RIGHT BUNDLE BRANCH BLOCK [120+ ms QRS DURATION, UPRIGHT V1, 40+ ms S IN I/aVL/V4/V5/V6] LEFT POSTERIOR FASCICULAR BLOCK [QRS AXIS > 109, INFERIOR Q] Compared to ECG 06/13/2025 13:35:19 Right bundle-branch block now present Left posterior fascicular block now present Sinus rhythm no longer present Short CA interval no longer present Left-axis deviation no longer present Myocardial infarct finding no longer present ST (T wave) deviation no longer present Electronically Signed On 06-15-2025 08:53:53 CDT by Pako Farmer M.D. [email or web address]
[2025-06-13 16:00] VITALS: BP 183/105; PULSE 80; O2SAT 95
[2025-06-13 16:34] LABS: Troponin 5 2HR 18.59 ng/L (0-15)
[2025-06-13 16:35] LABS: Troponin 5 2HR Delta -2.41 ABS# (0-10)
[2025-06-13 17:00] VITALS: BP 188/99; PULSE 78; O2SAT 96
[2025-06-13] MEDS: hyDRALAzine 20 mg/mL INJ 1 mL 10 MG IVP (17:24)
[2025-06-13] MEDS: labetalol 5 mg/mL SDV 20mL 10 MG IVP (17:24)
[2025-06-13 17:43] VITALS: BP 161/85; PULSE 79; O2SAT 97
== END 2025-06-13 17:45 | disposition home or self-care (01) ==
PROVIDERS: Emergency Provider Family Medicine; PCP Nurse Practitioner Family
DX: I10 Essential (primary) hypertension (principal); Z79.84 Long term (current) use of oral hypoglycemic drugs; E11.9 Type 2 diabetes mellitus without complications; E78.5 Hyperlipidemia, unspecified
CPT/HCPCS: 36415; 36416; 70450; 80053; 80306; 81001; 82962; 84484; 85025; 85610; 85730; 93005; 96374; 96375; 99285; J0360; J3490

== ENCOUNTER → 2025-06-20 09:42 | Outpatient (BNVA) | payer MEDICARE, OTHER, SELFPAY | PROVIDERS: PCP Nurse Practitioner Family; Referring Provider Nurse Practitioner Family; Visit Provider Specialist | DX: R93.0 Abnormal findings on diagnostic imaging of skull and head, not elsewhere classified (principal); I25.10 Atherosclerotic heart disease of native coronary artery without angina pectoris; G51.0 Bell's palsy; I10 Essential (primary) hypertension; H49.22 Sixth [abducent] nerve palsy, left eye; I63.89 Other cerebral infarction; L95.9 Vasculitis limited to the skin, unspecified | CPT/HCPCS: 36415; 82607; 83516; 83519; 84443; 85651; 86140; 86160; 86162; 86235; 86255; 86376; 99205 ==

== ENCOUNTER 2025-06-27 11:32 | Outpatient (CLI) | payer MEDICARE, OTHER, SELFPAY ==
--- NOTE | 2025-06-27 12:00 | CT_ITS ---
WS: [id number] CT ANGIOGRAM CEREBRAL AND CAROTID ARTERIES HISTORY: I25.10 - Atherosclerotic heart disease of [place] coronary... TECHNIQUE: CT angiogram is performed of the carotid and cerebral arteries. During arterial injection imaging is obtained from the skull vertex to the aortic arch in 1.25 mm imaging. Coronal and sagittal reformats are submitted. Additional multi planar reformats of the carotid and cerebral arteries are submitted, MIP imaging also reviewed. NASCET criteria utilized. All CT scans at [facility] use at least one of these dose optimization techniques: automated exposure control; mA and/or kV adjustment per patient size (includes targeted exams where dose is matched to clinical indication); or iterative reconstruction. CONTRAST: Omnipaque 350; 100 mL IV. DLP: 1206.64 mGy.cm COMPARISON: CT head 06/13/2025. Noncontrast CT head is first performed. No acute intracranial hemorrhage or edema. Moderate atrophy and small vessel disease. Tiny lacunar infarct in the RIGHT posterior nayla. Carotid Angiogram: Right carotid: Common carotid artery: Arises normally from the innominate artery. No significant plaque or stenosis. Internal carotid artery: Small amount of plaque in the cervical carotid artery bifurcation. There is intimal thickening and calcification. Focal stenosis of approximately 50% in the proximal ICA adjacent to plaque and intimal thickening. External carotid artery: Patent. Left carotid: Common carotid artery: Arises normally from the aorta. No significant plaque or stenosis. Internal carotid artery: Very mild plaque at the bifurcation. No stenosis. External carotid artery: Patent. Right vertebral artery: Unremarkable. Left vertebral artery: Mildly dominant. Patent. Subclavian arteries: No stenosis or significant abnormality. Upper thorax: Breathing motion artifact. There is significant breathing motion artifact. Atherosclerotic changes within the aortic arch. Thyroid gland: Limited. Osseous structures: Advanced degenerative disc disease and osteophytosis. No fracture. CEREBRAL ANGIOGRAM: Intracranial vertebral arteries: Normal with no significant atherosclerosis. Basilar artery: No significant stenosis or occlusion. No aneurysm. Intracranial Internal carotid arteries: Calcified plaque through the cavernous carotid arteries and supraclinoid arteries. There is at least 50% stenosis bilaterally. Slightly greater narrowing of the LEFT carotid artery. Middle cerebral arteries: Middle cerebral arteries are both patent. Very slight narrowing of the RIGHT M1 segment. No irregularity of the lumen. This may be congenital. Anterior cerebral arteries and ACOM: Normal. Posterior cerebral arteries and PCOM's: Normal. Dural venous sinuses are normally enhancing. Mastoid air cells: Normal. Paranasal sinuses: Normal. Calvarium: Normal. CT/CT angio headneck* [id number] IMPRESSION: 1. Proximal RIGHT ICA stenosis 50%. 2. No LEFT cervical ICA stenosis. 3. Bilateral calcified plaque to the carotid cavernous sinuses and supraclinoi d carotid arteries. Stenosis estimated near 50 to 60% and slightly greater on t he LEFT. 4. No flow limiting stenoses in the [place]. 5. No cerebral artery aneurysm.
[2025-06-27] MEDS: iohexol 350 mg/mL 500 mL Btl (per mL) IV (12:18)
== END 2025-06-27 11:33 | disposition home or self-care (01) ==
PROVIDERS: PCP Nurse Practitioner Family; Visit Provider Specialist
DX: I65.23 Occlusion and stenosis of bilateral carotid arteries (principal); I25.10 Atherosclerotic heart disease of native coronary artery without angina pectoris; R93.0 Abnormal findings on diagnostic imaging of skull and head, not elsewhere classified; G51.0 Bell's palsy
CPT/HCPCS: 70496; 70498

== ENCOUNTER 2025-07-19 15:36 | Outpatient (CLI) | payer MEDICARE, OTHER, SELFPAY ==
--- NOTE | 2025-07-19 07:45 | USCV_ITS ---
Eligio Ervin Age: 79 Gender: M : 1945 Exam Date: 07/19/2025 16:21 Ordering Phys: Bailey Damon MD Technologist: BUTCH Exam Location: [facility] [place] Indication: Nerve Palsy left eye. Recent possible TIA BP: 157 / 70 HR: 68 Rhythm: Sinus Technical Quality: Adequate MEASUREMENTS (Male / Female) Normal Values 2D ECHO LV Diastolic Diameter PLAX 6.0 cm 4.2 - 5.9 / 3.9 - 5.3 cm IVS Diastolic Thickness 1.2 cm 0.6 - 1.0 / 0.6 - 0.9 cm IVS Systolic Thickness 1.9 cm LVPW Diastolic Thickness 1.1 cm 0.6 - 1.0 / 0.6 - 0.9 cm LVPW Systolic Thickness 1.9 cm LVOT Diameter 2.0 cm LV Ejection Fraction 2D Teich 53.6 % LV Ejection Fraction MOD 4C 58.7 % LV Ejection Fraction MOD 2C 47.9 % LV Ejection Fraction 2C AL 47.0 % LA Diameter 4.7 cm RA Systolic Volume 4C AL 36.3 ml RA Systolic Volume 4C MOD 36.1 ml LA Sys Volume AL 75.6 cm cubed LA Sys Volume Index AL 34.1 cm cubed/m squared Aorta at Sinotubular Diameter 3.0 cm M-MODE LA Ao Ratio MM 1.5 AV Cusp Separation MM 1.1 cm DOPPLER AV Peak Velocity 240.0 cm/s LVOT Peak Velocity 91.0 cm/s AV Area Cont Eq vti 1.4 cm squared AV Area Cont Eq pk 1.3 cm squared MV Peak Velocity 114.0 cm/s MV Area PHT 7.3 cm squared Mitral E to A Ratio 0.9 TR Peak Velocity 98.0 cm/s TR Peak Gradient 3.8 mmHg TV Peak E Velocity 98.0 cm/s PV Peak Velocity 91.0 cm/s FINDINGS Left Ventricle Normal left ventricular cavity size. Normal left ventricular size and systolic function, EF 58%. Mild left ventricular hypertrophy. Normal diastolic function. Right Ventricle Normal right ventricular size and systolic function. Normal right ventricular systolic pressure. Right Atrium Normal right atrial size. Left Atrium Mildly increased left atrial size. Mitral Valve No mitral valve stenosis. No mitral valve regurgitation. Aortic Valve Aortic valve not well visualized. Mild aortic valve stenosis. No aortic valve regurgitation. Tricuspid Valve Trace tricuspid valve regurgitation. Pulmonic Valve No pulmonary valve regurgitation. No pulmonary valve stenosis. Pericardium No pericardial effusion. Aorta Normal size aortic root and proximal ascending aorta. IVC Inferior vena cava not visualized. CONCLUSIONS 1. Normal biventricular function, LV EF 58%. 2. No significant valvular dysfunction. Bill Velasco MD, FACC (Electronically Signed) Final Date: 20 July 2025 22:07 S
== END 2025-07-19 15:37 | disposition home or self-care (01) ==
LOC: RAD 15:39
PROVIDERS: PCP Nurse Practitioner Family; Visit Provider Specialist
DX: H49.22 Sixth [abducent] nerve palsy, left eye (principal); I63.89 Other cerebral infarction; L95.9 Vasculitis limited to the skin, unspecified; I25.10 Atherosclerotic heart disease of native coronary artery without angina pectoris; I10 Essential (primary) hypertension; I51.7 Cardiomegaly; I35.0 Nonrheumatic aortic (valve) stenosis
CPT/HCPCS: 93306

== ENCOUNTER → 2025-07-24 12:44 | Outpatient (BNVA) | payer MEDICARE, OTHER, SELFPAY | PROVIDERS: PCP Nurse Practitioner Family; Referring Provider Specialist; Visit Provider Internal Medicine | DX: I25.10 Atherosclerotic heart disease of native coronary artery without angina pectoris (principal); I10 Essential (primary) hypertension; E11.9 Type 2 diabetes mellitus without complications; Z79.4 Long term (current) use of insulin; I70.1 Atherosclerosis of renal artery; Z79.82 Long term (current) use of aspirin; Z86.73 Personal history of transient ischemic attack (TIA), and cerebral infarction without residual deficits; R00.2 Palpitations | CPT/HCPCS: 99214 ==

== ENCOUNTER → 2025-08-07 12:50 | Outpatient (BNVA) | payer MEDICARE, OTHER, SELFPAY | PROVIDERS: PCP Nurse Practitioner Family; Visit Provider Dermatology | DX: L82.1 Other seborrheic keratosis (principal); L85.3 Xerosis cutis; L72.0 Epidermal cyst; L81.0 Postinflammatory hyperpigmentation; L21.8 Other seborrheic dermatitis; D18.01 Hemangioma of skin and subcutaneous tissue; L57.0 Actinic keratosis; D48.5 Neoplasm of uncertain behavior of skin | CPT/HCPCS: 11102; 17004; 99204 ==

== ENCOUNTER 2025-08-28 12:31 | Emergency (ER) | payer MEDICARE, OTHER, SELFPAY ==
[2025-08-28 12:33] VITALS: BP 203/111; PULSE 99; RESP 18; TEMP 36.8; O2SAT 96; BMI 28.8
--- NOTE | 2025-08-28 12:36 | XR_ITS ---
WS: [id number] Portable AP upright chest, 08/28/2025 Clinical Data: sob Comparison: Portable chest, 01/20/2016. Findings: No nodules, masses or effusions are seen. The heart is normal. The pulmonary vascularity is not increased. No pneumonia or pneumothorax is seen. The aortic arch and descending thoracic aorta show tortuosity. Monitor leads are on the chest wall. XR/XR chest 1V portable [id number] Impression: Atherosclerosis.
--- NOTE | 2025-08-28 12:36 | ECG_ITS ---
[facility] Test Date: 2025-08-28 Pat Name: Eligio Ervin Department: Room: Gender: Male Service Tech: : 1945 Requested By: America Ruiz Order Number: [id number] Reading MD: SHAN GUSMAN Measurements Intervals [place] Rate: 99 P: 200 IN: 268 QRS: 136 QRSD: 137 T: 8 QT: 399 QTc: 514 Interpretive Statements ECTOPIC ATRIAL RHYTHM WITH FIRST DEGREE AV BLOCK POSSIBLE LEFT ATRIAL ENLARGEMENT [-0.1mV P-WAVE IN V1/V2] RIGHT AXIS DEVIATION [QRS AXIS > 100] RIGHT BUNDLE BRANCH BLOCK [120+ ms QRS DURATION, UPRIGHT V1, 40+ ms S IN I/aVL/V4/V5/V6] Compared to ECG 06/13/2025 15:14:35 Ectopic atrial rhythm now present First degree AV block now present Right-axis deviation now present Left posterior fascicular block no longer present Electronically Signed On 08-29-2025 16:51:20 CDT by SHAN GUSMAN [email or web address]
--- NOTE | 2025-08-28 12:53 | W.ED.SOB ---
HPI - SOB/Dyspnea General: Chief Complaint: Shortness of Breath/Dyspnea Stated Complaint: Hard time breathing last night Time Seen by Provider: 08/28/25 12:42 Source: patient Mode of arrival: ambulatory Limitations: no limitations History of Present Illness: HPI Narrative: 80-year-old male states that last week he has been having intermittent shortness of breath. States has had some cough congestion as well. He states that his shortness of breath gets much worse at night and was having a hard time breathing last night. States he feels slightly improved this morning he denies any chest pain denies any fevers pulse ox here is normal. Related Data Home Medications ?Medication ?Instructions ?Recorded ?Confirmed acetaminophen 325 mg tablet 325 mg PO QID PRN Pain 11/23/21 08/28/25 (Tylenol) insulin glargine 100 unit/mL (3 62 unit SUBCUT QAM 11/23/21 08/28/25 mL) subcutaneous pen (Lantus Solostar U-100 Insulin) clopidogrel 75 mg tablet 75 mg PO DAILY 08/28/25 08/28/25 ketorolac 0.5 % eye drops 1 drp ophthalmic (eye) QID 08/28/25 08/28/25 levothyroxine 125 mcg tablet 125 mcg PO DAILY 08/28/25 08/28/25 prednisolone acetate 1 % eye 1 drp ophthalmic (eye) QID 08/28/25 08/28/25 drops,suspension Previous Rx's ?Medication ?Instructions ?Recorded amlodipine 10 mg tablet 10 mg PO DAILY #30 tabs 06/13/25 aspirin 81 mg tablet,delayed 81 mg PO DAILY #30 tabs 06/13/25 release hydrochlorothiazide 12.5 mg capsule 12.5 mg PO DAILY #90 caps 07/24/25 furosemide 40 mg tablet (Lasix) 40 mg PO QAM #30 tabs 08/28/25 Allergies Allergy/AdvReac Type Severity Reaction Status Date / Time No Known Allergies Allergy Verified 08/28/25 12:41 Review of Systems Resp: Reports: dyspnea PFSH ED PFSH: Medical History Diabetes Hyperlipidemia Renal artery stenosis Uncontrolled hypertension Family History Father Diabetes Mother CAD (coronary artery disease) Myocardial infarct Brother Myocardial infarct Other Hypertension Social History Smoking and tobacco/nicotine status: never used tobacco/nicotine Physical Exam Const: COMMON NORMALS: no acute distress, patient oriented x3 and healthy appearing HENMT: COMMON NORMALS: normocephalic and atraumatic HEAD & SCALP: normocephalic and atraumatic Eye: COMMON NORMALS: conjunctivae normal CONJUNCTIVA: Yes conjunctivae normal Neck/C-Spine: COMMON NORMALS: full ROM and supple Chest: COMMONS NORMALS: normal inspection of the chest Resp: COMMON NORMALS: normal respiratory effort, No retractions, No use of accessory muscles and clear to auscultation bilaterally AUSCULTATION: clear to auscultation bilaterally Cardio: COMMON NORMALS: regular rate, regular rhythm and No murmurs present (Cardio) RATE: regular rate RHYTHM: regular rhythm Extremity: COMMON NORMALS: normal to inspection and full ROM Neuro: COMMON NORMALS: patient oriented x3, moves all extremities and no focal motor deficits Psych: COMMON NORMALS: mental status grossly normal, Normal thought process present and cooperative THOUGHT PROCESS: Normal thought process present Skin: COMMON NORMALS: no rashes or lesions noted and no wounds GENERAL SKIN EXAM: no rashes or lesions noted Course Vital Signs: Vital signs: Vital Signs Temperature 98.2 F 08/28/25 12:33 Pulse Rate 92 08/28/25 15:58 Respiratory Rate 18 08/28/25 12:33 Blood Pressure 181/117 08/28/25 15:58 Pulse Oximetry 97 08/28/25 15:58 MDM - SOB/Dyspnea Medical Decision Making Eligio presents here with shortness of breath mainly at night when he lays flat. Differential did include pulmonary emboli, pneumonia, pneumothorax. He is ruled out patient CT scan showed no signs of pneumonia pulm emboli or pneumothorax. Likely has mild congestive heart failure. Patient has been in no distress here has not required any oxygen his 2-hour troponin had a negative delta with no signs of acute coronary syndrome. His EKG showed normal sinus rhythm heart rate [address] elevation QRS was 137 QTc 436 and repeat EKG showed no changes. Had a long discussion with patient but shared decision making did offer him admission but he states that he feels much improved. Will start him on Lasix I informed if he has any worsening of his symptoms he is to return he needs to follow-up with his PCP in 1 to 3 days. He understands and agrees to the plan. Medical Records I reviewed the patient's medical records. Lab Data I reviewed the patient's lab results. 08/28/25 13:13 08/28/25 13:13 Labs/Radiology: Radiology Impressions Chest X-Ray 08/28/25 12:36 Impression: Atherosclerosis. Chest CTA 08/28/25 14:03 IMPRESSION: Mild congestive heart failure Laboratory Results WBC 10.70 10^3/uL (3.29-11.43) 08/28/25 13:13 RBC 3.72 10^6/uL (3.85-5.65) L 08/28/25 13:13 Hgb 11.50 g/dL (11.27-16.99) 08/28/25 13:13 Hct 33.4 % (37-53) L 08/28/25 13:13 MCV 89.8 fl (82-101) 08/28/25 13:13 MCH 30.9 pg (27-33) 08/28/25 13:13 MCHC 34.4 g/dL (30-55) 08/28/25 13:13 RDW 14.2 % (12.1-15.1) 08/28/25 13:13 Plt Count 198 10^3/cmm (157-399) 08/28/25 13:13 MPV 9.4 fL (7.4-10.4) 08/28/25 13:13 Neut % (Auto) 78.9 % 08/28/25 13:13 Lymph % (Auto) 14.7 % 08/28/25 13:13 Woodruff % (Auto) 4.5 % 08/28/25 13:13 Eos % (Auto) 1.0 % 08/28/25 13:13 Baso % (Auto) 0.5 % 08/28/25 13:13 Neut # (Auto) 8.45 10^3/uL (1.8-7.7) H 08/28/25 13:13 Lymph # (Auto) 1.6 10^3/uL (0.8-4.8) 08/28/25 13:13 Woodruff # (Auto) 0.5 10^3/uL (0.2-0.9) 08/28/25 13:13 Eos # (Auto) 0.1 10^3/uL (0.0-0.8) 08/28/25 13:13 Baso # (Auto) 0.1 10^3/uL (0.0-0.1) 08/28/25 13:13 Nucleated RBC % (auto) 0 % 08/28/25 13:13 Nucleated RBCs # 0.0 /100WBC 08/28/25 13:13 D-Dimer 8.62 ug/mLFEU (0-0.59) H 08/28/25 13:13 Sodium 135 mmol/L (136-145) L 08/28/25 13:13 Potassium 4.6 mmol/L (3.5-5.1) 08/28/25 13:13 Chloride 101 mmol/L (98-107) 08/28/25 13:13 Carbon Dioxide 22 mmol/L (22-29) 08/28/25 13:13 Anion Gap 16.6 (5-19) 08/28/25 13:13 BUN 21 mg/dL (8-23) 08/28/25 13:13 Creatinine 1.7 mg/dL (0.7-1.2) H 08/28/25 13:13 GFR Calculation Not Reportable 08/28/25 13:13 Glucose 181 mg/dL (65-115) H 08/28/25 13:13 Calculated Osmolality 288 mOsm/kg (285-295) 08/28/25 13:13 Calcium 8.0 mg/dL (8.5-10.5) L 08/28/25 13:13 Total Bilirubin 1.5 mg/dL (0.15-1.2) H 08/28/25 13:13 AST 18 U/L (0-40) 08/28/25 13:13 ALT 10 U/L (0-41) 08/28/25 13:13 Alkaline Phosphatase 118 U/L (40-130) 08/28/25 13:13 Troponin T Baseline 52 ng/L (0-15) H 08/28/25 13:13 Troponin T 120 Minute 46.76 ng/L (0-15) H 08/28/25 14:59 Delta Troponin T -5.24 ABS# (0-10) L 08/28/25 14:59 NT-Pro-B Natriuret Pep 8654 pg/mL (0-450) H 08/28/25 13:13 Total Protein 5.8 g/dL (6.6-8.7) L 08/28/25 13:13 Albumin 3.4 g/dL (3.5-5.2) L 08/28/25 13:13 Globulin 2.4 g/dL (1.3-4.6) 08/28/25 13:13 Lipase 16 U/L (13-60) 08/28/25 13:13 Influenza A (PCR) Negative (Negative) 08/28/25 13:09 Influenza Type B (PCR) Negative (Negative) 08/28/25 13:09 RSV (PCR) Negative (Negative) 08/28/25 13:09 SARS-CoV-2 (PCR) Negative (Negative) 08/28/25 13:09 All radiology interpretation(s) finalized by discharge EKG Data EKG 1: I personally reviewed and interpreted this EKG as follows: EKG Interpretation Date: 08/28/25 EKG interpretation time: 12:51 Interpretation: sinus rhythm hr [address] elevation qrs 137 qtc 436 EKG 2: I personally reviewed and interpreted this EKG as follows: EKG Interpretation Date: 08/28/25 EKG interpretation time: 15:03 Interpretation: nsr hr [address] levation qrs 124 qtc 464 Discharge Plan Discharge Patient Disposition: Home Clinical Impression: Congestive heart failure, Dyspnea Condition: Stable Prescriptions: New furosemide [Lasix] 40 mg tablet 40 mg PO QAM Qty: 30 0RF No Action Lantus Solostar U-100 Insulin 100 unit/mL (3 mL) insulin pen 62 unit SUBCUT QAM acetaminophen [Tylenol] 325 mg tablet 325 mg PO QID PRN (Reason: Pain) hydrochlorothiazide 12.5 mg capsule 12.5 mg PO DAILY Qty: 90 3RF aspirin 81 mg tablet,delayed release (DR/EC) 81 mg PO DAILY Qty: 30 0RF amlodipine 10 mg tablet 10 mg PO DAILY Qty: 30 0RF levothyroxine 125 mcg tablet 125 mcg PO DAILY clopidogrel 75 mg tablet 75 mg PO DAILY ketorolac 0.5 % drops 1 drp ophthalmic (eye) QID prednisolone acetate 1 % drops,suspension 1 drp ophthalmic (eye) QID Discharge Orders: Discharge ED (Routine); Ordered 08/28/25 Ordered By: America Ruiz Referrals: Nicole Meeks NP [Primary Care Provider, Nurse Practitioner] - 4-7 days Discharge Diet: Advance as tolerated Discharge Activity: Resume usual activity Patient Instructions: Heart Failure (ED), Dyspnea (ED) Print Language: Djiboutian Coding Level of Care Code ED Contour Sander for Thu Braga
[2025-08-28 13:20] LABS: Hematocrit 33.4 % (37-53); Hemoglobin 11.50 g/dL (11.27-16.99); Mean Corpuscular HGB Conc 34.4 g/dL (30-55); Mean Corpuscular Hemoglobin 30.9 pg (27-33); Mean Corpuscular Volume 89.8 fl (82-101); Nucleated Red Blood Cells % 0 %; Platelet Count 198 10^3/cmm (157-399); Red Blood Count 3.72 10^6/uL (3.85-5.65); White Blood Count 10.70 10^3/uL (3.29-11.43)
[2025-08-28] MEDS: hyDRALAzine 20 mg/mL INJ 1 mL 10 MG IVP (13:36)
[2025-08-28 13:38] LABS: Troponin(5th) Baseline 52 ng/L (0-15)
[2025-08-28 13:57] LABS: Respiratory Syncytial Virus Ce NEGATIVE (Negative); SARS-CoV-2 PCR NEGATIVE (Negative)
[2025-08-28 13:59] LABS: Alanine Aminotransferase 10 U/L (0-41); Albumin Level 3.4 g/dL (3.5-5.2); Alkaline Phosphatase 118 U/L (40-130); Anion Gap 16.6 (5-19); Aspartate Amino Transferase 18 U/L (0-40); Blood Urea Nitrogen 21 mg/dL (8-23); Calcium 8.0 mg/dL (8.5-10.5); Carbon Dioxide 22 mmol/L (22-29); Chloride 101 mmol/L (98-107); Creatinine Clr Calc Pharmacy 43.1599; Globulin 2.4 g/dL (1.3-4.6); Glucose 181 mg/dL (65-115); Lipase 16 U/L (13-60); NT Pro B Type Natriuretic Pept 8654 pg/mL (0-450); Osmolality Calculated 288 mOsm/kg (285-295); Potassium 4.6 mmol/L (3.5-5.1); Sodium 135 mmol/L (136-145); Total Protein 5.8 g/dL (6.6-8.7)
[2025-08-28 14:00] VITALS: BP 188/114; PULSE 101; O2SAT 98
--- NOTE | 2025-08-28 14:03 | CTR_ITS ---
PROCEDURE INFORMATION: Exam: CTA Chest With Contrast Exam date and time: 08/28/2025 2:27 PM Age: 80 years old Clinical indication: Shortness of breath; Additional info: SOB TECHNIQUE: Imaging protocol: Computed tomographic angiography of the chest with contrast. Exam focused on the arteries. 3D rendering (Not supervised by radiologist): MIP and/or 3D reconstructed images were created by the technologist. Radiation optimization: All CT scans at this facility use at least one of these dose optimization techniques: automated exposure control; mA and/or kV adjustment per patient size (includes targeted exams where dose is matched to clinical indication); or iterative reconstruction. Contrast material: OMNI 350; Contrast volume: 100 ml; Contrast route: INTRAVENOUS (IV); COMPARISON: CR XR chest 1V portable [id number] 08/28/2025 12:49 PM RADIATION DOSE METRICS: Total DLP (mGy-cm): 453.41 FINDINGS: Pulmonary arteries: Normal. No pulmonary emboli. Aorta: Unremarkable. No aortic aneurysm. No aortic dissection. Lungs: Both lungs demonstrate mild septal edema. Pleural spaces: Tiny bilateral pleural effusions are noted. Heart: Mild cardiomegaly is noted. Lymph nodes: Unremarkable. No enlarged lymph nodes. Bones/joints: Unremarkable. No acute fracture. Soft tissues: Unremarkable. CT/CT angio chest PE protcl [id number] IMPRESSION: Mild congestive heart failure
[2025-08-28] MEDS: iohexol 350 mg/mL 500 mL Btl (per mL) IV (14:37)
--- NOTE | 2025-08-28 14:44 | ECG_ITS ---
[facility] Date: 2025-08-28 Pat Name: Eligio Ervin Department: Room: Gender: Male Data Reduction Technician: : 1945 Requested By: America Ruiz Order Number: [id number] Reading MD: SHAN GUSMAN Measurements Intervals [place] Rate: 89 P: 109 [place]: 313 QRS: 134 QRSD: 124 T: 2 QT: 417 QTc: 509 Interpretive Statements SINUS RHYTHM WITH FIRST DEGREE AV BLOCK RIGHT AXIS DEVIATION [QRS AXIS > 100] RIGHT BUNDLE BRANCH BLOCK [120+ ms QRS DURATION, UPRIGHT V1, 40+ ms S IN I/aVL/V4/V5/V6] Compared to ECG 08/28/2025 12:51:28 Ectopic atrial rhythm no longer present Electronically Signed On 08-29-2025 16:59:10 CDT by SHAN GUSMAN [email or web address]
[2025-08-28 15:00] VITALS: PULSE 90; O2SAT 96
--- NOTE | 2025-08-28 15:11 | PC.PHAR ---
Addendum entered by Carol Dugan 08/28/25 15:14: Prescriptions from both pharmacies over a year old: Atenolol 50mg daily, Farxiga 5mg daily, Fluoxetine 40mg daily. Januvia 100mg daily, Rosuvastatin 40mg nightly, Turlicity 3mg/0.5ml once weekly, Valsartan 160mg bid, Jardiance 10mgdaily , and Vitamin d2 50,000 units twice monthly. Original Note: Pt states he does not know what he takes. Called [facility] and [facility] for current medications.
[2025-08-28] MEDS: FUROsemide 10 mg/mL SDV 10mL 60 MG IVP (15:21)
[2025-08-28 15:39] LABS: Troponin 5 2HR 46.76 ng/L (0-15)
[2025-08-28 15:43] LABS: Troponin 5 2HR Delta -5.24 ABS# (0-10)
[2025-08-28 15:58] VITALS: BP 181/117; PULSE 92; O2SAT 97
--- NOTE | 2025-08-29 08:24 | DCPLANNER ---
messaged heart care for er f/u
== END 2025-08-28 16:09 | disposition home or self-care (01) ==
PROVIDERS: Emergency Provider Emergency Medicine; PCP Nurse Practitioner Family
DX: I11.0 Hypertensive heart disease with heart failure (principal); I50.9 Heart failure, unspecified; E11.9 Type 2 diabetes mellitus without complications; E78.5 Hyperlipidemia, unspecified; R06.00 Dyspnea, unspecified; Z11.52 Encounter for screening for COVID-19; Z79.82 Long term (current) use of aspirin; Z79.02 Long term (current) use of antithrombotics/antiplatelets
CPT/HCPCS: 36415; 71045; 71275; 80053; 83690; 83880; 84484; 85025; 85378; 87637; 93005; 96374; 96375; 99285; J0360; J1938